=== PATIENT | female | born 1985 | race Caucasian/White ===

== ENCOUNTER 2018-01-16 19:58 | Observation (INO) | payer MEDICAID ==
[~2018-01-16] VITALS: Ht 170.2 cm; Wt 101.8 kg
[~2018-01-16 19:58] MED LIST: ACHD5005 PO; DCS100C PO; HYDR-3583 PO; IBP800T PO; LVT.025T PO; LVT.05T PO; METR500T PO; NAPR550T PO; PREN1TAB39 PO; PRM25T PO; SULF1TAB38 PO
--- OUTSIDE RECORDS SUMMARY | 2018-01-16 20:04 | XMS REPORT ---
Author Author BOLIVAR VYAS Organization [facility] Address [address] [place] [address] Care Team Providers Care Business Quality Assurance Analyst Name Role Phone BOLIVAR VYAS Unavailable PROBLEMS Type Condition ICD9-CM Code SMO20-AP Code Onset Dates Condition Status SNOMED Code Problem Painful menstrual periods N94.6 Active 238559143 Problem Acquired hypothyroidism E03.9 Active 860132231 ALLERGIES No Information ENCOUNTERS Encounter Location Date Diagnosis [address] [address] Jul, Well woman exam Z01.419 and Cervical cancer screening Z12.[address] [address] Jul, Acquired hypothyroidism E03.9 ; Myalgia M79.1 and Painful menstrual periods N94.6 [facility] [place] [address] [address] Jun, Chronic seasonal allergic rhinitis due to other allergen J30.[address] [address] Mar, Acquired hypothyroidism E03.9 [facility] [address] [address] 14 Jan, 2017 Sore throat J02.9 and Strep throat J02.0 [facility] [address] [address] 08 Jan, 2017 Scabies B86 and Sore throat J02.9 [place] [address] [address] Dec, Acquired hypothyroidism E03.9 [place] [address] [address], [place] [address] Dec, Acquired hypothyroidism E03.9 [facility] [address] [place] [id number] [place] [address] Aug, Acquired hypothyroidism E03.9 [facility] [address] [address] May, [facility] [address] [place] [id number] [place] [address] May, Encounter to establish care Z76.89 ; Alopecia L65.9 ; Fatigue, unspecified type R53.83 ; Left wrist pain M25.532 ; Pain in right knee M25.561 and Pain in left knee M25.562 [facility] [address], [place] [address] Jan, [facility] [address] [place] [id number] [place] [address] Jan, [facility] [address], [place] [address] Apr, [facility] [address] [place] [id number] [address] Apr, [facility] [address], [place] [address] Apr, [facility] [address], [place] [address] Apr, [facility] [address], [place] [address] Dec, [facility] [address] [place] [id number] [address] Dec, [facility] [address] [address] Nov, [facility] [address], [place] [address] Nov, [facility] [address] [id number] [place] [address] Nov, [facility] [place] [facility] [address] [id number] [place] [address] Nov, [facility] [address] [id number] [place] [address] Apr, [facility] [place] [facility] [address] [id number] [place] [address] February, [facility] [address] [id number] [place] [address] Jan, [facility] [place] [facility] [address] [id number] [place] [address] Jan, [facility] [place] [facility] [address] [id number] [place] [address] Jan, [facility] [place] [facility] [address] [id number] [place] [address] Jan, [facility] [address] [id number] [place] [address] Jan, [facility] [place] [facility] [address] [id number] [place] [address] 16 Jan, 2013 [facility] [place] [facility] [address] [id number] [place] [address] 15 Jan, 2013 [facility] [place] [facility] [address] [id number] [place] [address] Jan, [facility] [place] [facility] [address] [id number] [place] [address] Dec, [facility] [place] [facility] [address] [id number] [place] [address] Dec, [facility] [place] [facility] [address] [id number] [place] [address] Dec, [facility] [place] [facility] [address] [id number] [place] [address] 20 Nov, 2012 [facility] [address] [id number] [place] [address] 07 Nov, 2012 [facility] [place] [facility] [address] [id number] [place] [address] 07 Nov, 2012 [facility] [address] [id number] [place] [address] 06 Nov, 2012 [facility] [place] [facility] [address] [id number] [place] [address] 09 Oct, 2012 [facility] [address] [id number] [place] 18 Sep, 2012 [facility] [address] [id number] [place] [address] 18 Sep, 2012 [facility] [address] [id number] [place] [address] 17 Sep, 2012 [facility] [address] [id number] [place] [address] 16 Sep, 2012 [facility] [place] [facility] [address] [id number] [place] [address] 13 Sep, 2012 [facility] [address] [id number] [place] [address]- [address] 12 Sep, 2012 [facility] [place] [facility] [address] [id number] [place] [address] 12 Sep, 2012 [facility] [place] [facility] [address] [id number] [place] [address]- [address] 14 Aug, 2012 [facility] [place] [facility] [address] [id number] [place] [address]- [address] 14 Aug, 2012 [facility] [place] [facility] [address] [id number] [place] [address]- [address] 12 Aug, 2012 [facility] [place] [facility] [address] [id number] [place] [address] Aug, [facility] [place] [facility] [address] [id number] [place] [address] Jul, [facility] [place] [facility] [address] [id number] [place] [address]- [address] Jul, [facility] [place] [facility] [address] [id number] [place] [address] Jul, [facility] [place] [facility] [address] [id number] [place] [address]- [address] 28 Jun, 2012 [facility] [place] [facility] [address] [id number] [place] [address]- [address] 27 Jun, 2012 [facility] [place] [facility] [address] [id number] [place] [address] 16 Jun, 2012 [facility] [place] [facility] [address] [id number] [place] [address] 14 Jun, 2012 [facility] [place] [facility] [address] [id number] [place] [address]- [address] 11 Jun, 2012 [facility] [place] [facility] [address] [id number] [place] [address] February, [facility] [place] [facility] [address] [id number] [place] [address]- [address] February, [facility] [place] [facility] [address] [id number] [place] [address]- [address] February, [facility] [place] [facility] [address] [id number] [place] [address]- [address] Jan, [facility] [place] [facility] [address] [id number] [place] [address]- [address] Jan, [facility] [place] [facility] [address] [id number] [place] [address]- [address] Jan, [facility] [place] [facility] [address] [id number] [place] [address]- [address] Jan, [facility] [place] [facility] [address] [id number] [place] [address]- [address] 03 Jan, 2012 [facility] [place] [facility] [address] [id number] [place] [address]- [address] 19 Dec, 2011 [facility] [place] [facility] [address] [id number] [place] [address]- [address] 12 Dec, 2011 [facility] [place] [facility] [address] [id number] [place] [address]- [address] 10 Dec, 2011 [facility] [place] [facility] [address] [id number] [place] [address]- 75[address] 08 Dec, 2011 [facility] [place] [facility] [address] [id number] [place] [address]- [address] 29 Nov, 2011 [facility] [place] [facility] [address] [id number] [place] [address]- [address] 10 Jul, 2011 [facility] [place] [facility] [address] [id number] [place] [address]- [address] 10 Jul, 2011 [facility] [place] [facility] [address] [id number] [place] [address]- 97[address] 20 Mar, 2011 [facility] [place] [facility] [address] [id number] [place] [address]- [address] 13 Mar, 2011 [facility] [place] [facility] [address] [facility] [id number] [place] [address]- 1766 13 Jan, 2011 [facility] [place] [facility] [address] [id number] [place] [address]- 45[address] 15 Dec, 2010 [facility] [place] [facility] [address] [id number] [place] [address]- 2548 29 Sep, 2010 [facility] [place] [facility] [address] [id number] [place] [address]- [address] Sep, [facility] [place] [facility] [address] [id number] [place] [address] 24 Sep, 2010 [facility] [place] [facility] [address] [id number] [place] [address]- [address] Sep, [facility] [place] [facility] [address] [place] [id number] [address] Sep, [facility] [address] [place] [address] Aug, [facility] [address], [place] [address] Aug, [facility] [address], [place] [address] Jul, [facility] [address] [place] [address] Jul, [facility] [address] [place] [address]- [address] Jul, [facility] [address] [place] [id number] [address] Nov, IMMUNIZATIONS No Known Immunizations SOCIAL HISTORY Never Assessed REASON FOR VISIT Lab (walk-in) PLAN OF CARE VITAL SIGNS MEDICATIONS No Known Medications RESULTS Name Result Date Reference Range TSH 2017-03-18 TSH 2.080 0.450-4.500 PROCEDURES Procedure Date Ordered Result Body Site LAB NOT BILLED BY [facility] March 18, 2017 VENMARY, ROUTINE* March 18, 2017 INSTRUCTIONS MEDICATIONS ADMINISTERED No Known Medications MEDICAL (GENERAL) HISTORY Type Description Date Medical History Hypothryoid Surgical History Bilateral Tubal Ligation Surgical History dilatation and curettage Surgical History section x2 Hospitalization History surgeries and childbirth
--- OUTSIDE RECORDS SUMMARY | 2018-01-16 20:04 | XMS REPORT ---
Author Author BOLIVAR VYAS Organization [employer] Address Unknown Phone Unavailable Care Team Providers Care Wire Bender Hand Name Role Phone BOLIVAR VYAS CP Unavailable Allergies, Adverse Reactions, Alerts Substance Reaction Event Type Penicillin V Potassium Info Not Available Drug Allergy Problems Problem Type Condition Code Onset Dates Condition Status Problem General counseling for prescription of oral contraceptives V25.01 Active Problem Missed 632 Active Problem Screening of Streptococcus B V28.6 Active Problem Other general counseling and advice for contraceptive management V25.09 Active Problem Screening examination for venereal disease V74.5 Active Problem Acquired hypothyroidism E03.9 Active Problem Supervision of other normal V22.1 Active Problem Previous delivery, unspecified as to episode of care or not applicable 654.20 Active Problem Screening for malignant neoplasm of the cervix V76.2 Active Problem Urinary tract infection, site not specified 599.0 Active Assessment Acquired hypothyroidism E03.9 Active Problem examination or test, positive result V72.42 Active Problem Routine gynecological examination V72.31 Active Problem Unspecified breast screening V76.10 Active Medications Medication Code System Code Instructions Start Date End Date Status Dosage Levothyroxine Sodium [facility] [address]-02 25 MCG Orally Once a day May 29, 2016 1 tablet on an empty stomach in the morning Procedures Procedure Coding System Code Date Office Visit, Est Pt., Level 3 CPT-4 12465 Aug 20, 2016 Vital Signs Date/Time: Aug 20, 2016 Cardiac Monitoring Heart Rate 80 bpm Weight 192 lbs Height 67 in BMI 30.07 Index Blood Pressure Diastolic 78 mmHg Blood Pressure Systolic 128 mmHg Results No Known Results Summary Purpose [employer] Submission
--- OUTSIDE RECORDS SUMMARY | 2018-01-16 20:04 | XMS REPORT ---
Author Author BOLIVAR VYAS Organization [facility] Address [address] [place] [address] Care Team Providers Care Slipman Name Role Phone BOLIVAR VYAS Unavailable PROBLEMS Type Condition ICD9-CM Code [id number] Code Onset Dates Condition Status SNOMED Code Problem Painful menstrual periods N94.6 Active 174589178 Problem Acquired hypothyroidism E03.9 Active 508971047 ALLERGIES No Information SOCIAL HISTORY Never Assessed PLAN OF CARE VITAL SIGNS MEDICATIONS Unknown Medications RESULTS Name Result Date Reference Range TSH 2016-12-31 TSH 7.390 0.450-4.500 PROCEDURES Procedure Date Ordered Result Body Site LAB NOT BILLED BY [facility] December 31, 2016 VENIPUNCT, ROUTINE* December 31, 2016 IMMUNIZATIONS No Known Immunizations MEDICAL (GENERAL) HISTORY Type Description Date Medical History Hypothryoid Surgical History Bilateral Tubal Ligation Surgical History dilatation and curettage Surgical History section x2 Hospitalization History surgeries and childbirth
--- OUTSIDE RECORDS SUMMARY | 2018-01-16 20:06 | XMS REPORT | Continuity of Care Document ---
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 TETRA TETRA SCREEN 09/26/2012 27345 UA OB DIP 10/19/2012 02027 ROUTINE VENIPUNCTURE 11/16/2012 74750 US OB - FOLLOW UP 11/16/2012 02390 UA OB DIP 11/16/2012 92045 GLUCOSE SHERWIN 1 HOUR 11/16/2012 39735 CBC 11/16/2012 40070 TSH 11/16/2012 73462 UA OB DIP 11/30/2012 93900 UA W/ CULTURE IF INDICATED 12/12/2012 81578 CULTURE URINE 12/14/2012 06867 UA OB DIP 12/26/2012 68738 CULTURE URINE 01/09/2013 24890 UA OB DIP 01/09/2013 62625 UA OB DIP 01/23/2013 71036 CULTURE GROUP B STREP VAG 01/25/2013 09880 UA W/ CULTURE IF INDICATED 01/31/2013 99151 UA OB DIP 02/08/2013 56707 URINE TEST (IN- HOUSE) 04/10/2013 68720 ROUTINE VENIPUNCTURE 12/06/2013 55442 GC/CHLAM PROBE (STATE) 12/06/2013 43240 TSH 12/06/2013 Results Test Result Range TSH - 12/31/16 10:21 TSH 7.390 uIU/mL 0.450-4.500 TSH - 03/18/17 12:09 TSH 2.080 uIU/mL 0.450-4.500 Pap Lb, rfx HPV ASCU - 08/04/17 10:37 DIAGNOSIS: Comment Specimen adequacy: Comment Clinician provided ICD10: Comment Performed by: Comment . . Note: Comment . Comment PDF Report - 08/04/17 10:37 PDF Report1 LCLS NRG Encounters ACCT No. Visit Date/Time Discharge Status Pt. Type Provider Facility Loc./Unit Complaint [id number] 02/21/2013 08:51:00 02/23/2013 12:25:00 DIS Inpatient [id number] 02/15/2013 12:35:00 02/15/2013 23:59:59 CLS Outpatient [id number] 05/15/2017 01:06:00 05/15/2017 02:39:00 [facility] [id number] 05/15/2017 01:30:46 Document Registration [id number] 05/08/2014 09:28:00 05/08/2014 23:59:59 CLS Outpatient CARLOS POWERS MD [id number] 12/06/2013 10:18:00 12/06/2013 23:59:59 CLS Outpatient JENNI MISHRA APRN [id number] 12/06/2013 10:18:00 12/06/2013 23:59:59 CLS Outpatient JENNI MISHRA APRN [id number] 01/09/2013 14:31:00 01/09/2013 23:59:59 CLS Outpatient [id number] 12/26/2012 15:04:00 12/26/2012 23:59:59 CLS Outpatient [id number] 12/12/2012 14:08:00 12/12/2012 23:59:59 CLS Outpatient [id number] 11/30/2012 16:00:00 11/30/2012 23:59:59 CLS Outpatient [id number] 11/16/2012 12:47:00 11/16/2012 23:59:59 CLS Outpatient KALPESH STONE DO Sebastien [id number] 10/19/2012 13:56:00 10/19/2012 23:59:59 CLS Outpatient [id number] 09/21/2012 10:12:00 09/21/2012 23:59:59 CLS Outpatient STONE KALPESH Sebastien [id number] 08/22/2012 14:08:00 08/22/2012 23:59:59 CLS Outpatient KALPESH STONE DO Sebastien [id number] 04/11/2013 15:13:00 Document Registration [id number] 02/08/2013 10:43:00 Document Registration [id number] 01/23/2013 14:57:00 Document Registration [id number] 01/09/2013 14:31:00 Document Registration [id number] 03/19/2017 08:06:00 Document Registration [id number] 08/06/2017 19:07:00 Document Registration [id number] 08/04/2017 09:20:00 08/04/2017 23:59:59 CLS Outpatient BOLIVAR VYAS APRN [facility] [id number] 08/04/2017 09:20:00 Document Registration [id number] 01/01/2017 09:12:00 Document Registration
[2018-01-16] MEDS ORDERED: LACTATED RINGERS 1,000 ML IV ONE (20:11)
[2018-01-16] MEDS ORDERED: ONDANSETRON 4 MG/2 ML (SDV) Z0FRAN IVP ONE ×2 (20:15→21:00)
[2018-01-16 20:22] LABS: BILIRUBIN,URINE NEGATIVE (NEGATIVE); CLARITY,URINE VERY CLOUDY; COLOR,URINE YELLOW; GLUCOSE, URINE (UA) NEGATIVE (NEGATIVE); KETONES,URINE NEGATIVE (NEGATIVE); LEUKOCYTE ESTERASE ,URINE 3+ (NEGATIVE); NITRITE,URINE NEGATIVE (NEGATIVE); PH,URINE 7 (5-9); PROTEIN,URINE 2+ (NEGATIVE); UROBILINOGEN,URINE NORMAL (NORMAL)
[2018-01-16 20:37] LABS: BACTERIA,URINE MODERATE /HPF; RBC,URINE >100 /HPF
[2018-01-16 20:38] LABS: AMORPHOUS SEDIMENT,UR FEW AMOR URATES /LPF
[2018-01-16 20:50] LABS: BASOPHILS % (AUTO) 0 % (0-10); EOSINOPHILS # (AUTO) 0.3 10^3/uL (0.0-0.3); EOSINOPHILS % (AUTO) 2 % (0-10); HEMATOCRIT 40 % (35-52); HEMOGLOBIN 13.4 G/DL (11.5-16.0); LYMPHOCYTES # (AUTO) 1.4 X 10^3 (1.0-4.0); LYMPHOCYTES % (AUTO) 11 % (12-44); MEAN CORPUSCULAR HEMOGLOBIN 31 PG (25-34); MEAN CORPUSCULAR HGB CONC 34 G/DL (32-36); MEAN CORPUSCULAR VOLUME 90 FL (80-99); MEAN PLATELET VOLUME 10.4 FL (7.4-10.4); MONOCYTES # (AUTO) 0.7 X 10^3 (0.0-1.0); MONOCYTES % (AUTO) 6 % (0-12); NEUTROPHILS % (AUTO) 81 % (42-75); PLATELET COUNT 281 10^3/uL (130-400); RED BLOOD COUNT 4.39 10^6/uL (4.35-5.85); RED CELL DISTRIBUTION WIDTH 12.9 % (10.0-14.5); WHITE BLOOD COUNT 12.4 10^3/uL (4.3-11.0)
[2018-01-16] MEDS ORDERED: KETOROLAC 30 MG/ML VIAL IVP ONE (21:00)
[2018-01-16] MEDS ORDERED: PANTOPRAZOLE 40 MG/10 ML (PROTONIX) VIAL IV ONE (21:00)
[2018-01-16 21:09] LABS: ALANINE AMINOTRANSFERASE 36 U/L (0-55); ALBUMIN 4.5 GM/DL (3.2-4.5); ALKALINE PHOSPHATASE 81 U/L (40-136); AMYLASE 84 U/L (25-125); BILIRUBIN,TOTAL 0.4 MG/DL (0.1-1.0); BUN/CREATININE RATIO 17; CALCIUM 9.6 MG/DL (8.5-10.1); CARBON DIOXIDE 25 MMOL/L (21-32); CHLORIDE 108 MMOL/L (98-107); CREATININE SERUM 0.88 MG/DL (0.60-1.30); GFR ESTIMATED > 60; GLUCOSE 83 MG/DL (70-105); LIPASE 45 U/L (8-78); POTASSIUM 3.9 MMOL/L (3.6-5.0); SODIUM 141 MMOL/L (135-145); TOTAL PROTEIN 7.8 GM/DL (6.4-8.2)
--- NOTE | 2018-01-16 21:49 | Diagnostic Imaging Report ---
PROCEDURE: CT abdomen and pelvis without contrast. TECHNIQUE: Multiple contiguous axial images were obtained through the abdomen and pelvis without the use of intravenous contrast. INDICATION: Abdominal pain with nausea and vomiting. COMPARISON: None available. FINDINGS: Evaluation of the abdominal viscera is mildly limited without contrast. Lower chest: The lung bases are clear. No pericardial or pleural effusion. Peritoneum: No free intraperitoneal air or fluid. Liver and biliary system: Unenhanced liver is normal. The gallbladder is normal. No biliary duct dilation. Spleen and Pancreas: Spleen is normal. Unenhanced pancreas is grossly normal. Adrenals: Normal. tract: No renal or ureteral calculi. No obstructive uropathy. Uterus and ovaries are normal in appearance. No adnexal mass. GI tract: Stomach is decompressed. No bowel obstruction. No pericolonic inflammatory changes. Normal appendix. Vasculature and Lymph nodes: Normal caliber aorta. No abdominal or pelvic lymphadenopathy. Musculoskeletal: No concerning osseous lesion. IMPRESSION: 1. No acute inflammatory or obstructive process in the abdomen or pelvis. 2. No urinary tract calculi. Dictated by: Dictated on workstation # [id number]
--- NOTE | 2018-01-16 22:00 | Diagnostic Imaging Report ---
INDICATION: Abdominal pain with nausea and vomiting. COMPARISON: CT abdomen and pelvis performed concurrently. FINDINGS: Nonobstructive bowel gas pattern. No free intraperitoneal air. No mineralized urinary tract calculi. Scattered pelvic phleboliths. Lung bases are clear. Normal regional skeleton. IMPRESSION: No acute abnormality in the abdomen by radiography. Dictated by: Dictated on workstation # [id number]
[2018-01-16] MEDS ORDERED: fentaNYL INJECTION 100 MCG/2 ML AMP IVP ONE (23:15)
[2018-01-16] MEDS ORDERED: cefTRIAXone INJECTION 1,000 MG in NS (IVPB) 100 ML IV ONE (23:30)
--- OUTSIDE RECORDS SUMMARY | 2018-01-16 23:52 | XMS REPORT | Continuity of Care Document ---
Author Author [facility] Organization [facility] Address Unknown Phone Unavailable Allergies Active Description [...] ACUMINATUM 04/10/2009 078.11 CONDYLOMA ACUMINATUM 04/10/2009 TAD NATUROPATHIC ONCOLOGY PROVIDER, JENNI A 078.11 CONDYLOMA ACUMINATUM 04/10/2009 TADJENNI [...] 08/27/2010 V22.0 , Normal First 08/27/2010 TAD RHYS LAURENIDI A V22.0 , Normal First 08/27/2010 TAD ORNELASNRHYSJENNI A V22.0 , Normal First 08/27/2010 GIO [...] Scabies 09/17/2010 V74.5 Std Screen 09/17/2010 TAD NATUROPATHIC ONCOLOGY PROVIDER, JENNI A 133.0 Scabies 09/17/2010 TAD NATUROPATHIC ONCOLOGY PROVIDER, JENNI A V74.5 Std Screen 09/17/2010 TAD NATUROPATHIC ONCOLOGY PROVIDER, JENNI A 133.0 Scabies 09/17/2010 TAD NATUROPATHIC ONCOLOGY PROVIDER, JENNI A V74.5 Std Screen 09/17/2010 GIO ELLIOTT, CARLOS N 133.0 Scabies 09/17/2010 GIO ELLIOTT, CARLOS N V74.5 Std Screen 10/08/2010 KALPESH STONE DO 054.10 HERPES SIMPLEX GENITAL 10/08/2010 KALPESH STONE DO 647.20 Compl Of - Std Unspecified 10/08/2010 KALPESH STONE DO 648.10 Compl Of - Thyroid Dysfunction 10/08/2010 KALPESH STONE DO K 054.10 HERPES SIMPLEX GENITAL 10/08/2010 KAPLESH STONE DO K 647.20 Compl Of - [...] 33-34 Completed Weeks Of Gestation 03/02/2011 CARLOS POWERS MD 765.27 33-34 Completed Weeks Of Gestation 03/11/2011 KALPESH STONE DO 616.10 Vaginitis Vulvovaginitis Unspecified 03/11/2011 KALEPSH STONE DO 616.10 Vaginitis Vulvovaginitis Unspecified 03/11/2011 [...] GBS SCREENING 12/06/2013 JENNI MISHRA APRN V72.31 RESIDENTIAL SALES CONSULTANT EXAM, ROUTINE 12/06/2013 JENNI MISHRA APRN V74.5 STD SCREEN 12/06/2013 TADJENNI LOPEZ APRN A V76.10 BREAST CANCER SCREENING 12/06/2013 TADJENNI LOPEZ APRN V72.31 RESIDENTIAL SALES CONSULTANT EXAM, ROUTINE 12/06/2013 JENNI MISHRA APRN V74.5 STD SCREEN 12/06/2013 JENNI MISHRA APRN V76.10 BREAST CANCER SCREENING 12/06/2013 CARLOS POWERS MD V72.31 RESIDENTIAL SALES CONSULTANT EXAM, ROUTINE 12/06/2013 CARLOS POWERS MD V74.5 [...] 05/15/2017 Vicky Aguilar Y92.[address] [facility] Procedures Code Description [place] [address] ROUTINE VENIPUNCTURE 08/22/2012 68198 UA OB DIP 08/22/2012 61750 TSH 08/23/2012 94544 ROUTINE VENIPUNCTURE 09/21/2012 59079 US OB ULTRASOUND 09/21/2012 33917 UA OB DIP 09/21/2012 TETRA TETRA SCREEN 09/26/2012 42084 UA OB DIP 10/19/2012 81160 ROUTINE VENIPUNCTURE 11/16/2012 82355 US OB - FOLLOW UP 11/16/2012 37434 UA OB DIP 11/16/2012 39914 GLUCOSE SHERWIN 1 HOUR 11/16/2012 44844 CBC 11/16/2012 28133 TSH 11/16/2012 92837 UA OB DIP 11/30/2012 73807 UA W/ CULTURE IF INDICATED 12/12/2012 07877 CULTURE URINE 12/14/2012 39891 UA OB DIP 12/26/2012 46911 CULTURE URINE 01/09/2013 35471 UA OB DIP 01/09/2013 76641 UA OB DIP 01/23/2013 16515 CULTURE GROUP B STREP VAG 01/25/2013 01792 UA W/ CULTURE IF INDICATED 01/31/2013 66083 UA OB DIP 02/08/2013 00168 URINE TEST (IN- HOUSE) 04/10/2013 70936 ROUTINE VENIPUNCTURE 12/06/2013 94644 GC/CHLAM PROBE (STATE) 12/06/2013 28479 TSH 12/06/2013 Results Test Result Range TSH [...] Status Pt. Type Provider Facility Loc./Unit Complaint [id number] 02/21/2013 08:51:00 02/23/2013 12:25:00 DIS Inpatient [id number] 02/15/2013 12:35:00 02/15/2013 23:59:59 CLS Outpatient [id number] 05/15/2017 01:06:00 05/15/2017 02:39:00 [facility] [id number] 05/15/2017 01:30:46 Document Registration [id number] 05/08/2014 09:28:00 05/08/2014 23:59:59 CLS Outpatient CARLOS POWERS MD [id number] 12/06/2013 10:18:00 12/06/2013 23:59:59 CLS Outpatient JENNI MISHRA APRN [id number] 12/06/2013 10:18:00 12/06/2013 23:59:59 CLS Outpatient JENNI MISHRA APRN [id number] 01/09/2013 14:31:00 01/09/2013 23:59:59 CLS Outpatient [id number] 12/26/2012 15:04:00 12/26/2012 23:59:59 CLS Outpatient [id number] 12/12/2012 14:08:00 12/12/2012 23:59:59 CLS Outpatient [id number] 11/30/2012 16:00:00 11/30/2012 23:59:59 CLS Outpatient [id number] 11/16/2012 12:47:00 11/16/2012 23:59:59 CLS Outpatient KALPESH STONE DO Sebastien [id number] 10/19/2012 13:56:00 10/19/2012 23:59:59 CLS Outpatient [id number] 09/21/2012 10:12:00 09/21/2012 23:59:59 CLS Outpatient STONE KALPESH Sebastien [id number] 08/22/2012 14:08:00 08/22/2012 23:59:59 CLS Outpatient KALPESH STONE DO Sebastien [id number] 04/11/2013 15:13:00 Document Registration [id number] 02/08/2013 10:43:00 Document Registration [id number] 01/23/2013 14:57:00 Document Registration [id number] 01/09/2013 14:31:00 Document Registration [id number] 03/19/2017 08:06:00 Document Registration [id number] 08/06/2017 19:07:00 Document Registration [id number] 08/04/2017 09:20:00 08/04/2017 23:59:59 CLS Outpatient BOLIVAR VYAS APRN [facility] [id number] 08/04/2017 09:20:00 Document Registration [id number] 01/01/2017 09:12:00 Document Registration
[2018-01-17 00:05] VITALS: BP 136/74
[2018-01-17] MEDS ORDERED: LACTATED RINGERS 1,000 ML IV ONE ×2 (00:25→14:14)
[2018-01-17] MEDS ORDERED: ONDANSETRON 4 MG/2 ML (SDV) Z0FRAN IV PRN (02:45)
[2018-01-17] MEDS ORDERED: KETOROLAC 30 MG/ML VIAL IVP PRN (02:45)
[2018-01-17] MEDS ORDERED: fentaNYL INJECTION 100 MCG/2 ML AMP IV PRN (02:45)
[2018-01-17] MEDS: LACTATED RINGERS 1,000 ML IV SCH ×3 (03:27→14:20)
[2018-01-17 04:00] VITALS: BP 123/72
[2018-01-17 06:41] LABS: BASOPHILS % (AUTO) 0 % (0-10); EOSINOPHILS # (AUTO) 0.4 10^3/uL (0.0-0.3); EOSINOPHILS % (AUTO) 6 % (0-10); HEMATOCRIT 33 % (35-52); HEMOGLOBIN 11.2 G/DL (11.5-16.0); LYMPHOCYTES % (AUTO) 27 % (12-44); MEAN CORPUSCULAR HEMOGLOBIN 31 PG (25-34); MEAN CORPUSCULAR HGB CONC 34 G/DL (32-36); MEAN CORPUSCULAR VOLUME 91 FL (80-99); MEAN PLATELET VOLUME 10.7 FL (7.4-10.4); MONOCYTES # (AUTO) 0.5 X 10^3 (0.0-1.0); MONOCYTES % (AUTO) 6 % (0-12); NEUTROPHILS # (AUTO) 4.5 X 10^3 (1.8-7.8); NEUTROPHILS % (AUTO) 61 % (42-75); PLATELET COUNT 232 10^3/uL (130-400); RED BLOOD COUNT 3.65 10^6/uL (4.35-5.85); RED CELL DISTRIBUTION WIDTH 12.8 % (10.0-14.5); WHITE BLOOD COUNT 7.4 10^3/uL (4.3-11.0)
[2018-01-17 06:56] LABS: ALANINE AMINOTRANSFERASE 24 U/L (0-55); ALBUMIN 3.3 GM/DL (3.2-4.5); ALKALINE PHOSPHATASE 62 U/L (40-136); BILIRUBIN,TOTAL 0.5 MG/DL (0.1-1.0); BUN/CREATININE RATIO 18; CALCIUM 8.5 MG/DL (8.5-10.1); CARBON DIOXIDE 23 MMOL/L (21-32); CHLORIDE 109 MMOL/L (98-107); CREATININE SERUM 0.77 MG/DL (0.60-1.30); GFR ESTIMATED > 60; GLUCOSE 89 MG/DL (70-105); POTASSIUM 3.9 MMOL/L (3.6-5.0); SODIUM 140 MMOL/L (135-145); TOTAL PROTEIN 5.3 GM/DL (6.4-8.2)
--- NOTE | 2018-01-17 07:07 | Diagnostic Imaging Report ---
INDICATION: Abdominal pain, nausea and vomiting. TECHNIQUE: Multiple real-time bruce scale sonographic images of the abdomen. CORRELATION STUDY: None FINDINGS: LIVER: Normal echotexture within the visualized portions of the liver. Liver length 18 cm. GALLBLADDER: No shadowing gallstones or pericholecystic fluid. COMMON BILE DUCT: Nondilated at 4 mm. PANCREAS: Limited in visualization. The visualized portions appearing unremarkable. SPLEEN: Unremarkable. ABDOMINAL AORTA: Unremarkable. Distal area obscured. INFERIOR VENA CAVA: Limited in visualization. RIGHT KIDNEY: 11.5 cm. Thinning of the cortex. No hydronephrosis. LEFT KIDNEY: 12.0 cm. Less prominent thinning of the renal cortex. OTHER: None. IMPRESSION: 1. Negative for acute abnormality of the abdomen. 2. Borderline hepatomegaly. 3. Overall renal size within normal limits. There does, however, appear to be some early thinning of the renal parenchyma, right greater than left. No hydronephrosis. A preliminary report was provided by [facility]. Dictated by: Dictated on workstation # [id number]
[2018-01-17] MEDS ORDERED: CATHETER FLUSH 10 ML SYR IV PRN (07:30)
--- NOTE | 2018-01-17 08:07 | ED Abdominal Pain ---
General Chief Complaint: Abdominal/GI Problems Stated Complaint: RUQ PAIN; UTI Nursing Triage Note: PT TO ED 3 W/ C/O EPIGASTRIC ET ABD PAIN ONSET X3 DAY W/ N/V/D. PT REPORTS SHE FELT IF SHE WAS GOING TO PASS OUT TONGUER. PT PRESENTLY HYPERVENTILATING. PT INSTRUCTED TO SLOW HER BREATHING DOWN TO PREVENT WORSENING OF SYMPTOMS R/T HYPERVENTILATION. PT VOICED UNDERSTANDING. Sepsis Screen: No Definite Risk Source of Information: Patient Exam Limitations: No Limitations History of Present Illness Date Seen by Provider: Jan 16, 2018 Time Seen by Provider: 20:12 Initial Comments PT ARRIVES VIA POV FROM HOME C/O SEVERE EPIGASTRIC AND RUQ PAIN X 3 DAYS PAIN IS GETTING WORSE AND TODAY THE PAIN WAS SO BAD SHE THOUGHT SHE WAS GOING TO PASS OUT C/O NAUSEA/VOMITING NO DIARRHEA NO URINARY SYMPTOMS NO FEVER SYMPTOMS WORSE WITH FOOD--LAST ATE AROUND 1700 NO HISTORY OF SIMILAR LMP --NOW. Allergies and Home Medications Allergies Coded Allergies: Penicillins (Unverified Allergy, Mild, RASH, 12/07/12) Home Medications Levothyroxine Sodium 50 Mcg Tablet, 150 MG PO DAILY, (Reported) Patient Home Medication List Home Medication List Reviewed: Yes Review of Systems Constitutional: no symptoms reported Respiratory: No Symptoms Reported Cardiovascular: No Symptoms Reported Gastrointestinal: See HPI, Abdominal Pain, Nausea, Vomiting Genitourinary: No Symptoms Reported Musculoskeletal: no symptoms reported Skin: no symptoms reported Psychiatric/Neurological: No Symptoms Reported Endocrine: No Symptoms Reported Hematologic/Lymphatic: No Symptoms Reported Past Aldizbg-Ynoini-Voxtwg Hx Patient Social History Alcohol Use: Denies Use Recreational Drug Use: No Smoking Status: Never a Smoker 2nd Hand Smoke Exposure: No Recent Foreign Travel: No Contact w/Someone Who Travel: No Recent Infectious Disease Expo: No Recent Hopitalizations: No Physical Abuse: No Sexual Abuse: No Mistreated: No Fear: No Immunizations Up To Date Tetanus Booster (TDap): More than 5yrs PED Vaccines UTD: Yes Seasonal Allergies Seasonal Allergies: No Past Medical History Surgeries: Yes ( X 2; D&C) Section Respiratory: No Cardiac: No Neurological: No : No Hx : 3 Hx Para: 2 Hx Total # of Abortions (Sp): 1 Reproductive Disorders: Yes Female Reproductive Disorders: Denies Sexually Transmitted Disease: Yes (herpes no outbreak for several years) HIV/AIDS: No Genitourinary: No Gastrointestinal: No Musculoskeletal: No Endocrine: Yes (hypothyroid) Hypothyroidsim HEENT: No Cancer: No Psychosocial: No Nursing Suicide Risk Score: 0 Integumentary: No Blood Disorders: No Family Medical History FH: atrial fibrillation 19 FATHER Thyroid disease 19 MOTHER Physical Exam Vital Signs Vital Signs - First Documented 01/16/18 20:06 Temp 97.1 Pulse 76 Resp 18 B/P (MAP) 133/96 (108) Pulse Ox 100 O2 Delivery Room Air Capillary Refill : Less Than 3 Seconds General Appearance: WD/WN, no apparent distress (PT IS CALM NOW, BUT WAS NOTED TO BE HYPERVENTILATING WHEN SHE ARRIVED IN ER) Respiratory: normal breath sounds, no respiratory distress, no accessory muscle use Cardiovascular: regular rate, rhythm, no murmur Gastrointestinal: normal bowel sounds, soft, no organomegaly, no pulsatile mass , No distended, guarding, tenderness (EPIGASTRIC AND RUQ), No hernia, No mass Extremities: normal inspection Back: normal inspection, no CVA tenderness Neurologic/Psychiatric: butadiene converter helper II-XII nml as tested, no motor/sensory deficits, alert, oriented x 3 Skin: normal color, warm/dry, No rash Progress/Results/Core Measures Lab Results Laboratory Tests Test 01/16/18 20:16 01/16/18 20:43 Range/Units Urine Color YELLOW Urine Clarity VERY CLOUDY H Urine pH 7 5-9 Urine Specific [place] 1.010 L 1.016-1.022 Urine Protein 2+ H NEGATIVE Urine Glucose (UA) NEGATIVE NEGATIVE Urine Ketones NEGATIVE NEGATIVE Urine Nitrite NEGATIVE NEGATIVE Urine Bilirubin NEGATIVE NEGATIVE Urine Urobilinogen NORMAL NORMAL MG/DL Urine Leukocyte Esterase 3+ H NEGATIVE Urine RBC (Auto) 5+ H NEGATIVE Urine RBC >100 H /HPF Urine WBC 10-25 H /HPF Urine Squamous Epithelial Cells 10-25 H /HPF Urine Renal Epithelial Cells NONE /HPF Urine Crystals PRESENT H /LPF Urine Amorphous Sediment FEW MARTA URATES H /LPF Urine Bacteria MODERATE H /HPF Urine Casts NONE /LPF Urine Mucus SMALL H /LPF Urine Culture Indicated YES White Blood Count 12.4 H 4.3-11.0 10^3/uL Red Blood Count 4.39 4.35-5.85 10^6/uL Hemoglobin 13.4 11.5-16.0 G/DL Hematocrit 40 35-52 % Mean Corpuscular Volume 90 80-99 FL Mean Corpuscular Hemoglobin 31 25-34 PG Mean Corpuscular Hemoglobin Concent 34 32-36 G/DL Red Cell Distribution Width 12.9 10.0-14.5 % Platelet Count 281 130-400 10^3/uL Mean Platelet Volume 10.4 7.4-10.4 FL Neutrophils (%) (Auto) 81 H 42-75 % Lymphocytes (%) (Auto) 11 L 12-44 % Monocytes (%) (Auto) 6 0-12 % Eosinophils (%) (Auto) 2 0-10 % Basophils (%) (Auto) 0 0-10 % Neutrophils # (Auto) 10.0 H 1.8-7.8 X 10^3 Lymphocytes # (Auto) 1.4 1.0-4.0 X 10^3 Monocytes # (Auto) 0.7 0.0-1.0 X 10^3 Eosinophils # (Auto) 0.3 0.0-0.3 10^3/uL Basophils # (Auto) 0.0 0.0-0.1 10^3/uL Sodium Level 141 135-145 MMOL/L Potassium Level 3.9 3.6-5.0 MMOL/L Chloride Level 108 H 98-107 MMOL/L Carbon Dioxide Level 25 21-32 MMOL/L Anion Gap 8 5-14 MMOL/L Blood Urea Nitrogen 15 7-18 MG/DL Creatinine 0.88 0.60-1.30 MG/DL Estimat Glomerular Filtration Rate > 60 BUN/Creatinine Ratio 17 Glucose Level 83 70-105 MG/DL Calcium Level 9.6 8.5-10.1 MG/DL Total Bilirubin 0.4 0.1-1.0 MG/DL Aspartate Amino Transf (AST/SGOT) 24 5-34 U/L Alanine Aminotransferase (ALT/SGPT) 36 0-55 U/L Alkaline Phosphatase 81 40-136 U/L Total Protein 7.8 6.4-8.2 GM/DL Albumin 4.5 3.2-4.5 GM/DL Amylase Level 84 25-125 U/L Lipase 45 8-78 U/L My Orders Orders - ARTI,FAUSTINA K DO Saline Lock/Iv-Start (01/16/18 20:11) Urine Bedside (01/16/18 20:11) Amylase (01/16/18 20:11) Cbc With Automated Diff (01/16/18 20:11) Comprehensive Metabolic Panel (01/16/18 20:11) Lipase (01/16/18 20:11) Ua Culture If Indicated (01/16/18 20:11) Ondansetron Injection (Zofran Injectio (01/16/18 20:15) Saline Lock/Iv-Start (01/16/18 20:11) Lactated Ringers (Lr 1000 Ml Iv Solution (01/16/18 20:11) Urine Culture (01/16/18 20:16) Abdomen/Kub 1view (01/16/18 20:59) Ketorolac Injection (Toradol Injection) (01/16/18 21:00) Ondansetron Injection (Zofran Injectio (01/16/18 21:00) Pantoprazole Injection (Protonix Injecti (01/16/18 21:00) Ct Abdomen/Pelvis Wo (01/16/18 20:59) Us Abdomen Complete 32970 (01/16/18 21:49) Fentanyl Injection (Sublimaze Injection (01/16/18 23:15) Medications Given in ED Current Medications Medications Dose Ordered Sig/Dale Route Start Time Stop Time Status Last Admin Dose Admin Ketorolac Tromethamine 30 mg ONCE ONCE IVP 01/16/18 21:00 01/16/18 21:01 DC 01/16/18 21:29 30 MG Lactated Ringer's 1,000 ml @ 0 mls/hr Q0M ONCE IV 01/16/18 20:11 01/16/18 20:14 DC 01/16/18 20:43 1,000 MLS/HR Ondansetron HCl 4 mg ONCE ONCE IVP 01/16/18 20:15 01/16/18 20:16 DC 01/16/18 20:43 4 MG Ondansetron HCl 4 mg ONCE ONCE IVP 01/16/18 21:00 01/16/18 21:01 DC 01/16/18 21:29 4 MG Pantoprazole 40 mg ONCE ONCE IV 01/16/18 21:00 01/16/18 21:01 DC 01/16/18 21:29 40 MG Vital Signs/I&O 01/16/18 20:06 Temp 97.1 Pulse 76 Resp 18 B/P (MAP) 133/96 (108) Pulse Ox 100 O2 Delivery Room Air Blood Pressure Mean: 89 Urine -Bedside: Negative Progress Note : Progress Note NO RELIEF WITH TORADOL. STILL WITH SOME PAIN AFTER FENTANYL Comments CT ABDOMEN/PELVIS--NO ACUTE PROCESS, NO GALL STONES, NO KIDNEY STONES. PER RADIOLOGIST REPORT @ 1947 ABDOMINAL ULTRASOUND--NO ACUTE PROCESS, NO GALL STONES, PER TECH REPORT @ 3219 AND PER [facility] VIA FAX AT 7461 Reviewed: Reviewed by Me Departure Communication (Admissions) 2140--SPOKE WITH DR. JIMENEZ, ALL STUDIES PENDING. HE WILL ADMIT PT IF PAIN IS NOT CONTROLLED. 2309--SPOKE WITH DR. JIMENEZ. ACCEPTS PT FOR ADMIT. WILL OBTAIN HIDA SCAN IN AM. RECOIL SPRING WINDER INFORMED OF NEED FOR HIDA SCAN Impression Primary Impression: RUQ abdominal pain Additional Impression: UTI (urinary tract infection) Disposition: ADMITTED INPATIENT Condition: Stable Admissions Decision to Admit Reason: Admit from ER (General) Decision to Admit/Date: Jan 16, 2018 Time/Decision to Admit Time: 23:15 Departure-Patient Inst. Referrals: NO,LOCAL PHYSICIAN (PCP) Primary Care Physician FAUSTINA CHI DO Jan 17, 2018 08:07
[2018-01-17 08:55] VITALS: BP 132/79
[2018-01-17] MEDS ORDERED: PANTOPRAZOLE 40 MG/10 ML (PROTONIX) VIAL IV SCH (09:00)
[2018-01-17] MEDS ORDERED: PHEN37.53 PO (10:30)
[2018-01-17] MEDS ORDERED: LEVO50TA6 PO (10:30)
[2018-01-17] MEDS ORDERED: IBUP-1780 PO (10:32)
--- NOTE | 2018-01-17 10:34 | Diagnostic Imaging Report ---
INDICATION: Right upper quadrant pain. TECHNIQUE: The patient received an intravenous dose of 5.1 mCi of technetium 99m Choletec and sequential imaging over the abdomen was performed. At the 60 minute interval, the patient ingested Ensure for gallbladder stimulation with an additional 60 minutes of imaging. FINDINGS: There was prompt homogenous distribution of radiopharmacy throughout the liver parenchyma. Activity quickly aggregates in the gallbladder and central intrahepatic biliary ducts, each identified within 15 minutes. Activity spills freely into the proximal bowel and, with gallbladder stimulation via Ensure ingestion, there was good gallbladder contractility with an ejection fraction of 78% which is well within normal limits. There is no evidence for cystic or common duct obstruction. IMPRESSION: Normal gallbladder filling and ejection fraction. Normal HIDA scan. Dictated by: Dictated on workstation # [id number]
--- NOTE | 2018-01-17 11:49 | History & Physical-Surgical ---
History of Present Illness History of Present Illness Reason for visit/HPI HPI per ED: PT TO ED 3 W/ C/O EPIGASTRIC ET ABD PAIN ONSET X3 DAY W/ N/V/D. 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 PT PRESENTLY HYPERVENTILATING. PT INSTRUCTED TO SLOW HER BREATHING DOWN TO PREVENT WORSENING OF SYMPTOMS R/T HYPERVENTILATION. PT VOICED UNDERSTANDING. PT ARRIVES VIA POV FROM HOME C/O SEVERE EPIGASTRIC AND RUQ PAIN X 3 DAYS PAIN IS GETTING WORSE AND TODAY THE PAIN WAS SO BAD SHE THOUGHT SHE WAS GOING TO PASS OUT C/O NAUSEA/VOMITING NO DIARRHEA NO URINARY SYMPTOMS NO FEVER SYMPTOMS WORSE WITH FOOD--LAST ATE AROUND 1700 NO HISTORY OF SIMILAR LMP --NOW. When I spoke to pt this am, she states she has had about a month of this pain. She points to right below xyphoid and said it has occasionally gone to right side. Denies any radiation of the pain. When she came to the ER last night it was a 9 out of 10, now it is a 4. She stated it had been going on for 3-4 days, constant pain not letting up and she vomited every morning. Pt states it occurs mostly with "pineapple and spicy foods". She denies it occuring with greasy foods. Denies any sick contacts, no travel and no new foods. No one at home has any similar symptoms. She has tried tums and that does not help. Date of Admission Jan 16, 2018 at 23:10 Time Seen by Provider: 11:31 I consulted on this patient on 01/17/18 11:44 Attending Physician León Banuelos DO Admitting Physician No,Local Physician Consult Allergies and Home Medications Allergies Coded Allergies: Penicillins (Unverified Allergy, Mild, RASH, 12/07/12) Home Medications Ibuprofen 800 Mg Tablet, 800 MG PO TID PRN for PAIN-MILD, (Reported) Levothyroxine Sodium 50 Mcg Tablet, 50 MCG PO DAILY, (Reported) Phentermine HCl 37.5 Mg Tablet, 37.5 MG PO DAILY PRN for APPETITE, (Reported) Patient Home Medication List Home Medication List Reviewed: Yes Past Gtnqrdc-Qdaska-Aruphx Hx Patient Social History Alcohol Use: Denies Use Recreational Drug Use: No Smoking Status: Never a Smoker 2nd Hand Smoke Exposure: No Recent Foreign Travel: No Contact w/Someone Who Travel: No Recent Infectious Disease Expo: No Recent Hopitalizations: No Physical Abuse Screen: No Sexual Abuse: No Immunizations Up To Date Tetanus Booster (TDap): More than 5yrs PED Vaccines UTD: Yes Seasonal Allergies Seasonal Allergies: No Surgeries History of Surgeries: Yes ( X 2; D&C) Surgeries: Section, Tubal Ligation Respiratory History of Respiratory Disorde: No Cardiovascular History of Cardiac Disorders: No Neurological History of Neurological Disord: No Reproductive System : No Hx : 3 Hx Para: 2 Hx Total # of Abortions (Spona: 1 Hx Reproductive Disorders: Yes Sexually Transmitted Disease: Yes (herpes no outbreak for several years) HIV/AIDS: No Female Reproductive Disorders: Denies Genitourinary History of Genitourinary Disor: No Gastrointestinal History of Gastrointestinal Di: No Musculoskeletal History of Musculoskeletal Dis: No Endocrine History of Endocrine Disorders: Yes (hypothyroid) Endocrine Disorders: Hypothyroidsim HEENT History of HEENT Disorders: No Cancer History of Cancer: No Psychosocial History of Psychiatric Problem: No Integumentary History of Skin or Integumenta: No Blood Transfusions History of Blood Disorders: No Family Medical History Significant Family History: CAD Under 55 Years Old (Father had a [place]), Hypertension (Father) Family Medial History: FH: atrial fibrillation 19 FATHER Thyroid disease 19 MOTHER Constitutional: chills, diaphoresis, weakness EENTM: No blurred vision, No mouth swelling, No epistaxis, No throat swelling Respiratory: No cough, No dyspnea on exertion Cardiovascular: No chest pain, No edema, No palpitations Gastrointestinal: abdominal pain, No hematemesis, No melena, nausea, other ( denies hematochezia) Genitourinary: dysuria, frequency, No hematuria, No hesitancy : No Musculoskeletal: No back pain, No joint pain, No muscle stiffness Skin: No change in color, No change in hair/nails Psychiatric/Neurological: Denies Anxiety, Denies Depressed, Denies Seizure, Denies Tingling pt denies any abnormal bleeding or bruising, no polydipsia or excessive fluid intake Physical Exam Vital Signs Vital Signs - First Documented 01/16/18 20:06 Temp 97.1 Pulse 76 Resp 18 B/P (MAP) 133/96 (108) Pulse Ox 100 O2 Delivery Room Air Capillary Refill : Less Than 3 Seconds General Appearance: WD/WN, Mild Distress Eyes: Bilateral Eye PERRL, Bilateral Eye EOMI HEENT: Pharynx Normal, No Pale Conjunctivae (L), No Pale Conjunctivae (R), No Scleral Icterus (L), No Scleral Icterus (R) Neck: Full Range of Motion, Normal Inspection, Non Tender, Supple Respiratory: Chest Non Tender, Lungs Clear, Normal Breath Sounds, No Accessory Muscle Use, No Respiratory Distress Cardiovascular: Regular Rate, Rhythm, No Edema, No Murmur, Normal Peripheral Pulses Gastrointestinal: Normal Bowel Sounds, No Organomegaly, Soft, Hernia (small UH) , Tenderness (minimal epigastric tenderness) Rectal: Deferred Back: No CVA Tenderness, No Vertebral Tenderness Extremity: Normal Capillary Refill, Non Tender, No Calf Tenderness Neurologic/Psychiatric: Alert, Oriented x3, No Motor/Sensory Deficits, Normal Mood/Affect, first aid officer II-XII Norm as Tested Skin: Normal Color, Warm/Dry Lymphatic: No Adenopathy (neck, axilla or groin) Data Review Labs Laboratory Tests 01/16/18 20:16: Urine Color YELLOW, Urine Clarity VERY CLOUDYH, Urine pH 7, Urine Specific [place] 1.010L, Urine Protein 2+H, Urine Glucose (UA) NEGATIVE, Urine Ketones NEGATIVE, Urine Nitrite NEGATIVE, Urine Bilirubin NEGATIVE, Urine Urobilinogen NORMAL, Urine Leukocyte Esterase 3+H, Urine RBC (Auto) 5+H, Urine RBC >100H, Urine WBC 10-25H, Urine Squamous Epithelial Cells 10-25H, Urine Renal Epithelial Cells NONE, Urine Crystals PRESENTH, Urine Amorphous Sediment FEW MARTA URATESH, Urine Bacteria MODERATEH, Urine Casts NONE, Urine Mucus SMALLH, Urine Culture Indicated YES 01/16/18 20:43: White Blood Count 12.4H, Red Blood Count 4.39, Hemoglobin 13.4, Hematocrit 40, Mean Corpuscular Volume 90, Mean Corpuscular Hemoglobin 31, Mean Corpuscular Hemoglobin Concent 34, Red Cell Distribution Width 12.9, Platelet Count 281, Mean Platelet Volume 10.4, Neutrophils (%) (Auto) 81H, Lymphocytes (%) (Auto) 11L, Monocytes (%) (Auto) 6, Eosinophils (%) (Auto) 2, Basophils (%) (Auto) 0, Neutrophils # (Auto) 10.0H, Lymphocytes # (Auto) 1.4, Monocytes # (Auto) 0.7, Eosinophils # (Auto) 0.3, Basophils # (Auto) 0.0, Sodium Level 141, Potassium Level 3.9, Chloride Level 108H, Carbon Dioxide Level 25, Anion Gap 8, Blood Urea Nitrogen 15, Creatinine 0.88, Estimat Glomerular Filtration Rate > 60, BUN/ Creatinine Ratio 17, Glucose Level 83, Calcium Level 9.6, Total Bilirubin 0.4, Aspartate Amino Transf (AST/SGOT) 24, Alanine Aminotransferase (ALT/SGPT) 36, Alkaline Phosphatase 81, Total Protein 7.8, Albumin 4.5, Amylase Level 84, Lipase 45 01/17/18 05:59: White Blood Count 7.4, Red Blood Count 3.65L, Hemoglobin 11.2L, Hematocrit 33L, Mean Corpuscular Volume 91, Mean Corpuscular Hemoglobin 31, Mean Corpuscular Hemoglobin Concent 34, Red Cell Distribution Width 12.8, Platelet Count 232, Mean Platelet Volume 10.7H, Neutrophils (%) (Auto) 61, Lymphocytes (%) (Auto) 27 , Monocytes (%) (Auto) 6, Eosinophils (%) (Auto) 6, Basophils (%) (Auto) 0, Neutrophils # (Auto) 4.5, Lymphocytes # (Auto) 2.0, Monocytes # (Auto) 0.5, Eosinophils # (Auto) 0.4H, Basophils # (Auto) 0.0, Sodium Level 140, Potassium Level 3.9, Chloride Level 109H, Carbon Dioxide Level 23, Anion Gap 8, Blood Urea Nitrogen 14, Creatinine 0.77, Estimat Glomerular Filtration Rate > 60, BUN/ Creatinine Ratio 18, Glucose Level 89, Calcium Level 8.5, Total Bilirubin 0.5, Aspartate Amino Transf (AST/SGOT) 17, Alanine Aminotransferase (ALT/SGPT) 24, Alkaline Phosphatase 62, Total Protein 5.3L, Albumin 3.3 Assessment/Plan Assessment/Plan Admission Diagonsis Epigastric Pain Admission Status: Observation Assessment/Plan Epigastric pain r/o Gastritis UTI Plan pt was admitted, npo, IVF, pain control and anti-emetics. She was worked up for cholecystitis; but US and CT showed no stones and no pericholecystic fluid. HIDA this am was basically normal; EF 78%, which is borderline high ( above 80% is high). I think she needs an EGD to rule out Gastritis, ulcers or H. Pylori. I discussed the procedure with the pt; risks and compllications not limited to pain, bleeding, infection and esophageal rupture. All questions answered to her satisfaction and we will do that today. Pt is receiving ABX for UTI. Clinical Quality Measures DVT/VTE Risk/Contraindication: Risk Factor Score Per Nursin RFS Level Per Nursing on Admit: 2=Moderate LEÓN BANUELOS DO Jan 17, 2018 11:49
[2018-01-17 12:00] VITALS: BP 116/77
[2018-01-17] MEDS ORDERED: CATHETER FLUSH 10 ML SYR IV SCH (14:00)
[2018-01-17] MEDS ORDERED: HURRICAINE EXT TUBE (BENZOCAINE) ONE (14:14)
--- NOTE | 2018-01-17 14:39 | Progress Note-Post Operative ---
Post-Operative Progess Note Surgeon (s)/Scientific Programmer (s) Surgeon RANDALL JIMENEZ DO Scientific Programmer: none Pre-Operative Diagnosis Epigastric pain, UTI Post-Operative Diagnosis Gastritis Procedure & Operative Findings Date of Procedure 01/17/18 Procedure Performed/Findings EGD with bx Anesthesia Type IV Sedation by HEALTHCARE ANALYST Estimated Blood Loss Estimated blood loss (mL): scant Specimens/Packing Specimens Removed antral bx RANDALL JIMENEZ DO Jan 17, 2018 14:39
[2018-01-17] MEDS ORDERED: PANT40SU PO (14:40)
[2018-01-17] MEDS ORDERED: LACTATED RINGERS 1,000 ML IV STA (14:40)
[2018-01-17] MEDS ORDERED: CEPH-507 PO (14:43)
--- NOTE | 2018-01-17 14:44 | Endoscopy Discharge Instruct ---
Endo Procedure/Findings Findings 1.: Gastritis Discharge Instructions - Activity: You might feel a little sleepy until tomorrow. This is due to the medicine you received to relax you. Until tomorrow, you should: NOT drive a car, operate machinery or power tools. NOT drink any alcoholic beverages. NOT make any important decisions or sign importortant papers. Do not return to work until tomorrow, unless otherwise instructed. Resume previous activities tomorrow. Diet: Start by taking liquids. If you tolerate liquids, advance to solid food. Notify Physician - If you experience excessive bleeding, unusual abdominal pain, fever, or chest pain, contact your doctor immediately. Follow-Up: - I have received and understand the above instructions and will call my doctor if I have any further questions. Patient Signature Date Nurse Signature Other (Relationship) RANDALL JIMENEZ DO Jan 17, 2018 14:43
[2018-01-17] MEDS ORDERED: HURRICAINE EXT TUBE (BENZOCAINE) XX PRN (14:45)
--- NOTE | 2018-01-17 14:50 | Anesthesia-General Post-Op ---
MAC Patient Condition Mental Status/LOC: Same as Preop Cardiovascular: Satisfactory Nausea/Vomiting: Absent Respiratory: Satisfactory Pain: Controlled Complications: Absent Post Op Complications Complications None Follow Up Care/Instructions Patient Instructions None needed. Anesthesiology Discharge Order Discharge Order Patient is doing well, no complaints, stable vital signs, no apparent adverse anesthesia problems. No complications reported per nursing. MARLEEN BEASLEY CRNA Jan 17, 2018 14:50
[2018-01-17 15:25] VITALS: BP 115/66
[2018-01-17 16:33] VITALS: BP 115/66
--- NOTE | 2018-01-17 22:43 | OPERATIVE REPORT ---
DATE OF SERVICE: PREOPERATIVE DIAGNOSES: 1. Epigastric pain. 2. Urinary tract infection. 3. Rule out gastritis. POSTOPERATIVE DIAGNOSES: 1. Gastritis. 2. Urinary tract infection. PROCEDURE: EGD with biopsy. SURGEON: Dr. Banuelos. FIRE EXTINGUISHER CHARGER: None. ANESTHESIA: IV sedation by the DENTIST ATTENDANT. SPECIMEN: One biopsy from the antrum. BLOOD LOSS: Scant. FLUIDS: Per anesthesia. POSTOPERATIVE CONDITION: Stable. INDICATION FOR PROCEDURE: The patient is a 32-year-old female who was initially admitted for abdominal pain and possibly gallbladder problems. She had an ultrasound and CT, which showed no stones. HIDA scan showed basically normal ejection fraction , which is mildly elevated and her complaints sounded more like epigastric pain and gastritis. FINDINGS: The patient had some gastritis, but the duodenum looked fine. Pictures were taken. No hiatal hernia. Esophagus and GE junction looked good. PROCEDURE NOTE: After informed consent was obtained, the patient was brought to the endoscopy suite, placed in the bed in the left lateral decubitus position.. She was administered IV sedation by DENTIST ATTENDANT who then monitored her vitals the entire time, heart rate, blood pressure and pulse ox and the scope was inserted down the mouth into the esophagus and down in the stomach. It went down into the stomach, able to push into the first portion of duodenum, took a picture, appeared normal. Pulled back into the antrum. There appeared to be some erythema, but no ulcers seen. Elected to do a biopsy here. Retroflexed. There was not any hiatal hernia. Cardia looked okay and then pulled the scope into the esophagus. GE junction looked good. Picture was taken and then pulled the scope out of the esophagus and out of the mouth. The patient tolerated the procedure and she was recovered in the endoscopy suite. Job ID: [id number] DocumentID: [id number] Dictated Date: 01/17/2018 15:51:14 Content Strategist Date: 01/17/2018 22:42:29 Dictated By: RANDALL BANUELOS DO
[2018-01-18] MEDS ORDERED: cefTRIAXone 1 GM/NS 100 ML IVPB IV SCH ×2
[2018-01-18] MEDS ORDERED: proPOfol 200 MG/20 ML (DIPRIVAN) VIAL IV ONE (08:56)
== END 2018-01-17 14:42 | disposition home or self-care (01) ==
LOC: EDUNIT# 19:58 → ER 20:00 → 4TH 23:10
PROVIDERS: ADMIT Surgery; ATTEND Surgery
DX: K29.70 Gastritis, unspecified, without bleeding (principal); N39.0 Urinary tract infection, site not specified; E03.9 Hypothyroidism, unspecified; Z79.899 Other long term (current) drug therapy
CPT/HCPCS: 36415; 74018; 74176; 76700; 78227; 80053; 81000; 82150; 83690; 84703; 85025; 87088; 96361; 96365; 96375; 96376; G0378

== ENCOUNTER → 2019-04-20 | Outpatient (CLI) | payer MEDICAID ==
[~2019-04-20] MED LIST changes: +CEPH-507 PO; +IBUP-1780 PO; +LEVO50TA6 PO; +PANT40SU PO; +PHEN37.53 PO
--- NOTE | 2019-04-20 09:47 | Diagnostic Imaging Report ---
PROCEDURE: US Gallbladder. TECHNIQUE: Multiple real-time grayscale images were obtained over the right upper quadrant in various projections. INDICATION: Chronic diarrhea and biliary colic. FINDINGS: The liver is normal in size at 17.1 cm. No discrete liver mass is identified. The portal vein is patent and shows normal direction of flow. The gallbladder is without stones or sludge. No wall thickening or biliary ductal dilatation is seen. Pancreas is unremarkable. Aorta is nonaneurysmal. IVC is patent. Right kidney is without evidence of calculi or hydronephrosis. There is no ascites. IMPRESSION: Unremarkable gallbladder ultrasound. Dictated by: Dictated on workstation # [id number]
== END ==
LOC: RAD 06:33
PROVIDERS: ATTEND Obstetrics & Gynecology
DX: K52.9 Noninfective gastroenteritis and colitis, unspecified (principal); K80.50 Calculus of bile duct without cholangitis or cholecystitis without obstruction
CPT/HCPCS: 76705

== ENCOUNTER → 2019-05-12 | Outpatient (CLI) | payer MEDICAID ==
[~2019-05-12] MED LIST changes: +CATHETER FLUSH 10 ML SYR IV PRN
--- NOTE | 2019-05-12 14:01 | Diagnostic Imaging Report ---
INDICATION: Biliary colic. TECHNIQUE: Patient was administered 5.5 mCi technetium 99m Choletec intravenously and imaging over the abdomen was performed. After 60 minutes, the patient ingested one can of Ensure and a gallbladder ejection fraction was calculated. FINDINGS: Homogeneous uptake of activity by the liver is seen. There is prompt excretion of activity into the common duct and gallbladder. Normal passage of activity into the small bowel is seen. Gallbladder ejection fraction is 39%. IMPRESSION: Normal HIDA scan and gallbladder ejection fraction. Dictated by: Dictated on workstation # [id number]
== END ==
LOC: CARD 11:23
PROVIDERS: ATTEND Obstetrics & Gynecology
DX: K80.50 Calculus of bile duct without cholangitis or cholecystitis without obstruction (principal)
CPT/HCPCS: 78227

== ENCOUNTER 2020-03-25 05:39 | Outpatient (RCR) | payer MEDICAID ==
[~2020-03-25] VITALS: Ht 170 cm; Wt 116.0 kg
[~2020-03-25 05:39] MED LIST changes: -CATHETER FLUSH 10 ML SYR IV PRN; +KRIL1CAP18 PO; +LISI10TA2 PO; +LISI1TAB29 PO; +PROP10TA8 PO
== END 2020-03-25 15:10 | disposition home or self-care (01) ==
LOC: PREOP 05:39
PROVIDERS: ATTEND Obstetrics & Gynecology
DX: Z01.818 Encounter for other preprocedural examination (principal); Z11.59 Encounter for screening for other viral diseases
CPT/HCPCS: 87635

== ENCOUNTER 2020-03-27 10:56 | Day surgery (SDC) | payer MEDICAID ==
[2020-03-27] VITALS (10 sets, daily range): BP systolic 125–154; BP diastolic 86–100
[~2020-03-27] VITALS: Ht 170 cm; Wt 116.0 kg
[2020-03-27] MEDS ORDERED: ceFAZolin INJECTION 1,000 MG in WATER (STERILE) FOR INJECTION 10 ML IV ONE (11:15)
[2020-03-27] MEDS ORDERED: CATHETER FLUSH 10 ML SYR IV PRN (11:30)
[2020-03-27 12:05] LABS: BASOPHILS % (AUTO) 1 % (0-10); EOSINOPHILS # (AUTO) 0.2 10^3/uL (0.0-0.3); EOSINOPHILS % (AUTO) 4 % (0-10); HEMATOCRIT 38 % (35-52); HEMOGLOBIN 12.6 G/DL (11.5-16.0); LYMPHOCYTES # (AUTO) 1.6 X 10^3 (1.0-4.0); LYMPHOCYTES % (AUTO) 26 % (12-44); MEAN CORPUSCULAR HEMOGLOBIN 31 PG (25-34); MEAN CORPUSCULAR HGB CONC 33 G/DL (32-36); MEAN CORPUSCULAR VOLUME 92 FL (80-99); MEAN PLATELET VOLUME 10.8 FL (7.4-10.4); MONOCYTES # (AUTO) 0.4 X 10^3 (0.0-1.0); MONOCYTES % (AUTO) 7 % (0-12); NEUTROPHILS # (AUTO) 3.8 X 10^3 (1.8-7.8); NEUTROPHILS % (AUTO) 63 % (42-75); PLATELET COUNT 235 10^3/uL (130-400); RED CELL DISTRIBUTION WIDTH 13.2 % (10.0-14.5)
[2020-03-27] MEDS ORDERED: meTOprolol 5 MG/5 ML (LOPRESSOR) VIAL ONE (12:17)
[2020-03-27] MEDS ORDERED: DEXAMETHASONE 10 MG/ML (DECADRON) 1 ML VIAL ONE (12:23)
[2020-03-27] MEDS ORDERED: LIDOCAINE PF 2% 5 ML (XYLOCAINE) VIAL ONE (12:23)
[2020-03-27] MEDS ORDERED: MIDAZOLAM 2 MG/2 ML (VERSED) VIAL ONE (12:23)
[2020-03-27] MEDS ORDERED: proPOfol 200 MG/20 ML (DIPRIVAN) VIAL IV ONE (12:23)
[2020-03-27] MEDS ORDERED: ROCURONIUM 10 MG/ML 5 ML SYRINGE IV ONE ×2 (12:23→14:46)
[2020-03-27] MEDS ORDERED: ONDANSETRON 4 MG/2 ML (SDV) Z0FRAN ONE (12:23)
[2020-03-27] MEDS ORDERED: fentaNYL INJECTION 100 MCG/2 ML AMP ONE ×3 (12:24→15:22)
[2020-03-27] MEDS ORDERED: BUP/EPI 0.5% 1:200,000 (SENSORCAINE) 30 ML VIAL ONE (12:25)
[2020-03-27] MEDS ORDERED: meTOprolol 5 MG/5 ML (LOPRESSOR) VIAL IV ONE (12:30)
[2020-03-27] MEDS: LACTATED RINGERS 1,000 ML IV PRN ×3 (12:31→14:56)
[2020-03-27] MEDS ORDERED: SEVOFLURANE (ULTANE) 15 ML INHAL SOLN ONE ×9 (12:54→15:48)
[2020-03-27] MEDS ORDERED: GLYCOPYRROLATE 0.2 MG/ML (ROBINUL) 2 ML VIAL ONE (12:58)
[2020-03-27] MEDS ORDERED: NEOSTIGMINE 3 MG/3 ML VIAL ONE (12:58)
--- OUTSIDE RECORDS SUMMARY | 2020-03-27 13:23 | XMS REPORT ---
Author Author Dominique Torres Organization [facility] [place] Address [address] [place] [address] Care Team Providers Care Station Baggage Agent Name Role Phone JENNI Torres Unavailable PROBLEMS Type Condition ICD9-CM Code EOC63-OX Code Onset Dates Condition S tatus SNOMED Code Problem Primary hypothyroidism E03.9 Apr, 0 [id number] ALLERGIES No Information ENCOUNTERS Encounter Location Date Diagnosis [facility] [address] [facility] [id number] [place] [address] May, Strep throat J02.0 [facility] [place] [address] [address] Mar, Plantar fasciitis M72.2 [facility] [address] [address] February, Poison brenda dermatitis L23.7 [facility] [address] [address] Jan, Poison brenda dermatitis L23.7 [facility] [address] [address] Jan, Acute bilateral low back pain without sciatica M54.5 and Melasma L81.1 [facility] [address] [address] Oct, Strep pharyngitis J02.0 and Poison brenda dermatitis L23.7 [facility] [place] [address] [address] Sep, [facility] [place] [address] [address] February, Acquired hypothyroidism E03.9 [facility] [place] [address] [address] Sep, [place] [address] [address] Jul, Well woman exam Z01.419 and Cervical can cer screening Z12.4 [place] [address] [address] Jul, Acquired hypothyroidism E03.9 ; Myalgia M79.1 and Painful menstrual periods N94.6 [facility] [address] [address] 27 Jun, 2017 Chronic seasonal allergic rh initis due to other allergen J30.2 [place] [address] [address] 08 Mar, 2017 Acquired hypothyroidism E03.9 [facility]ALK IN [place] [address] [address] 14 Jan, 2017 Sore throat J02.9 and Strep throat J02.0 [facility] WALK IN [place] [address] [address] 08 Jan, 2017 Scabies B86 and Sore throat J02.9 [place] [address] [address] Dec, Acquired hypothyroidism E03.9 [place] [address] [address] Dec, Acquired hypothyroidism E03.9 [place] [address] [address] Aug, Acquired hypothyroidism E03.9 [place] [address] [address] May, [place] [address] [address] May, Encounter to establish care Z76.89 ; Gucci pecia L65.9 ; Fatigue, unspecified type R53.83 ; Left wrist pain M25.532 ; Pain in right knee M25.561 and Pain in left knee M25.562 [facility] [address] [id number] [place] [address] Jan, [facility] [address] [id number] [place] [address] Jan, [facility] [address] [id number] [place] [address] Apr, [facility] [address] [id number] [place] [address] Apr, [facility] [address] [id number] [place] [address] Apr, [facility] [address] [id number] [place] [address] Apr, [facility] [address] [id number] [place] [address] Dec, [facility] [address] [id number] [place] [address] Dec, [facility] [address] [id number] [place] [address] Nov, [facility] [address] [id number] [place] [address] Nov, [facility] [address] [id number] [place] [address] Nov, [facility] [address] [id number] [place] [address] Nov, [facility] [address] [id number] [place] [address] Apr, [facility] [address] [id number] [place] [address] February, [facility] [address] [id number] [place] [address] Jan, [facility] [address] [id number] [place] [address] Jan, [facility] [address] [id number] [place] [address] 23 Jan, 2013 [facility] [address] [id number] [place] [address] 19 Jan, 2013 [facility] [address] [id number] [place] [address] 17 Jan, 2013 [facility] [address] [id number] [place] [address] 16 Jan, 2013 [facility] [address] [id number] [place] [address] 15 Jan, 2013 [facility] [address] [id number] [place] [address] Jan, [facility] [address] [id number] [place] [address] 18 Dec, 2012 [facility] [address] [id number] [place] [address] 06 Dec, 2012 [facility] [address] [id number] [place] [address] 04 Dec, 2012 [facility] [address] [id number] [place] [address] 20 Nov, 2012 [facility] [address] [id number] [place] [address] 07 Nov, 2012 [facility] [address] [id number] [place] [address] 07 Nov, 2012 [facility] [address] [id number] [place] [address] 06 Nov, 2012 [facility] [address] [id number] [place] [address] Oct, [facility] [address] [id number] [place] [address] Sep, [facility] [address] [id number] [place] [address] Sep, [facility] [address] [id number] [place] [address] 17 Sep, 2012 [facility] [address] [id number] [place] [address] 16 Sep, 2012 [facility] [address] [id number] [place] [address] 13 Sep, 2012 [facility] [address] [id number] [place] [address] 12 Sep, 2012 [facility] [address] [id number] [place] [address] Sep, [facility] [address] [id number] [place] [address] 14 Aug, 2012 [facility] [address] [id number] [place] [address] 14 Aug, 2012 [facility] [address] [id number] [place] [address] Aug, [facility] [address] [id number] [place] [address] Aug, [facility] [address] [id number] [place] [address] 08 Jul, 2012 [facility] [address] [id number] [place] [address] 02 Jul, 2012 [facility] [address] [id number] [place] [address] Jul, [facility] [address] [id number] [place] [address] 28 Jun, 2012 [facility] [address] [id number] [place] [address] 27 Sep, 2011 [facility] [address] [id number] [place] [address] 16 Sep2011 [facility] [address] [id number] [place] [address] 14 Sep2011 [facility] [address] [id number] [place] [address] 11 Sep2011 [facility] [address] [id number] [place] [address] February, [facility] [address] [id number] [place] [address] February, [facility] [address] [id number] [place] [address] February, [facility] [address] [id number] [place] [address] Jan, [facility] [address] [id number] [place] [address] Jan, [facility] [address] [id number] [place] [address] Jan, [facility] [address] [id number] [place] [address] Jan, [facility] [address] [id number] [place] [address] Jan, [facility] [address] [id number] [place] [address] Dec, [facility] [address] [id number] [place] [address] Dec, [facility] [address] [id number] [place] [address] Dec, [facility] [address] [id number] [place] [address] Dec, [facility] [address] [id number] [place] [address] Nov, [facility] [address] [id number] [place] [address] Jul, [facility] [address] [place] [id number] [place] [address] Jul, [facility] [address] [id number] [place] [address] Mar, [facility] [address] [id number] [place] [address] Mar, [facility] [place] [address] [id number] [place] [address] 13 Jan, 2011 [facility] [place] [address] [place] [id number] [place] [address] 15 Dec, 2010 [facility] [place] [address] [id number] [place] [address] 29 Sep, 2010 [facility] [place] [address] [place] [id number] [place] [address] Sep, [facility] [place] [address] [place] [id number] [place] [address] Sep, [facility] [place] [address] [place] [id number] [place] [address] Sep, [facility] [place] [address] [place] [id number] [place] [address] Sep, [facility] [place] [address] [place] [id number] [place] [address] Aug, [facility] [place] [address] [place] [id number] [place] [address] Aug, [facility] [place] [address] [place] [id number] [place] [address] Jul, [facility] [place] [address] [place] [id number] [place] [address] Jul, [facility] [place] [address] [place] [id number] [place] [address] Jul, [facility] [place] [address] [place] [id number] [place] [address] Nov, IMMUNIZATIONS No Known Immunizations SOCIAL HISTORY Never Assessed REASON FOR VISIT PLAN OF CARE VITAL SIGNS MEDICATIONS No Known Medications RESULTS No Results PROCEDURES No Known procedures INSTRUCTIONS MEDICATIONS ADMINISTERED No Known Medications MEDICAL (GENERAL) HISTORY Type Description Date Medical History Hypothryoid Surgical History Bilateral Tubal Ligation Surgical History dilatation and curettage Surgical History section x2 Hospitalization History surgeries and childbirth Hospitalization History [facility] Gastritous 01/16/2018
--- OUTSIDE RECORDS SUMMARY | 2020-03-27 13:23 | XMS REPORT ---
Author Author Dominique Bishop Doctor Organization [facility] Address Unknown Phone Unavailable Care Team Providers Care Hydrocrane Operator Name Role Phone Migration, Doctor Unavailable Unavailable PROBLEMS Type Condition ICD9-CM Code [id number] Code Onset Dates Condition S tatus SNOMED Code Problem Primary hypothyroidism E03.9 Apr, 0 [id number] ALLERGIES No Information ENCOUNTERS Encounter Location Date Diagnosis [facility] [address] [place] [address] February, Poison brenda dermatitis L23.7 [facility] [address] [place] [address] Jan, Poison brenda dermatitis L23.7 [facility] [address] [place] [address] Jan, Acute bilateral low back pain without sciatica M54.5 and Melasma L81.1 [facility] [address] [place] [address] Oct, Strep pharyngitis J02.0 and Poison brenda dermatitis L23.7 [facility] [address] [place] [place] [id number] [address] [place] [address] Sep, [facility] [id number] [address] [place] [address] February, Acquired hypothyroidism E03. 9 [facility] [id number] [address] [place] [address] Sep, [place] [address] [id number] [address] [place] [address] Jul, Well woman exam Z01.419 and Cervical cancer screening Z12.4 [place] [address] [place] [id number] [place] [address] Jul, Acquired hypothyroidism E03. 9 ; Myalgia M79.1 and Painful menstrual periods N94.6 [facility] [address] [facility] [id number] [address] [place] [address] Jun, Chronic seasonal allergic rh initis due to other allergen J30.2 [facility] [address] [facility] [id number] [address] [place] [address] Mar, Acquired hypothyroidism E03. 9 [facility] [address] [facility] [id number] [address] [place] [address] Jan, Sore throat J02.9 and Strep throat J02.0 [facility] [address] [facility] [id number] [address] [place] [address] Jan, Scabies B86 and Sore throat J02.9 [facility] [address] [facility] [id number] [address] [place] [id number] Dec, Acquired hypothyroidism E03. 9 [facility] [address] [id number] [place] [address] Dec, Acquired hypothyroidism E03. 9 [facility] [id number] [place] [address] Aug, Acquired hypothyroidism E03. 9 [place] [address] [place] [id number] [place] [address] May, [facility] [address] [address] May, Encounter to establish care Z76.89 ; Alopecia L65.9 ; Fatigue, unspecified type R53.83 ; Left wrist pain M25.532 ; Pain in right knee M25.561 and Pain in left knee M25.562 [place] [address] [place] [place] [id number] [address] [place] [address] Jan, [facility] [address] [id number] [place] [address] Jan, [place] [id number] [address] Apr, [facility] [address] [id number] [address] [place] [address], [place] [address] Apr, [facility] [address] [id number] [address] [place] [address], [place] [address] Apr, [facility] [address] [id number] [address] [place] [address], [place] [address] Apr, [facility] [address] [id number] [address] [place] [address], [place] [address] Dec, [facility] [address] [id number] [address] [place] [address], [place] [address] Dec, [facility] [address] [id number] [address] [place] [address], [place] [address] Nov, [facility] [address] [id number] [address] [place] [address], [place] [address] Nov, [facility] [address] [id number] [address] [place] [address], [place] [address] Nov, [facility] [address] [id number] [address] [place] [address], [place] [address] Nov, [facility] [address] [id number] [address] [place] [address], [place] [address] Apr, [facility] [address] [id number] [address] [place] [address], [place] [address] February, [facility] [address] [id number] [address] [place] [address], [place] [address] Jan, [facility] [address] [id number] [address] [place] [address], [place] [address] Jan, [facility] [address] [id number] [address] [place] [address], [place] [address] Jan, [facility] [address] [id number] [address] [place] [address], [place] [address] Jan, [facility] [address] [id number] [address] [place] [address], [place] [address] 17 Jan, 2013 [facility] [address] [id number] [address] [place] [address], [place] [address] 16 Jan, 2013 [facility] [address] [id number] [address] [place] [address], [place] [address] 15 Jan, 2013 [facility] [address] [id number] [address] [place] [address], [place] [address] 01 Jan, 2013 [facility] [address] [id number] [address] [place] [address], [place] [address] 18 Dec, [address] [facility] [address] [id number] [address] [place] [address], [place] [address] 06 Dec, [address] [facility] [address] [id number] [address] [place] [address], [place] [address] 04 Dec, 2012 [facility] [address] [id number] [address] [place] [address], [place] [address] 20 Nov, 2012 [facility] [address] [id number] [address] [place] [address], [place] [address] 07 Nov, 2012 [facility] [address] [id number] [address] [place] [address], [place] [address] 07 Nov, 2012 [facility] [address] [id number] [address] [place] [address], [place] [address] 06 Nov, 2012 [facility] [address] [id number] [address] [place] [address], [place] [address] 09 Oct, [address] [facility] [address] [id number] [address] [place] [address], [place] [address] 18 Sep, 2012 [facility] [address] [id number] [address] [place] [address], [place] [address] 18 Sep, [address] [facility] [address] [id number] [address] [place] [address], [place] [address] 17 Sep, [address] [facility] [address] [id number] [address] [place] [address], [place] [address] 16 Sep, 2012 [facility] [address] [id number] [address] [place] [address], [place] [address] 13 Sep, 2012 [facility] [address] [id number] [address] [place] [address], [place] [address] 12 Sep, 2012 [facility] [address] [id number] [address] [place] [address], [place] [address] 12 Sep, 2012 [facility] [address] [id number] [address] [place] [address], [place] [address] 14 Aug, 2012 [facility] [address] [id number] [address] [place] [address], [place] [address] 14 Aug, 2012 [facility] [address] [id number] [address] [place] [address], [place] [address] Aug, [facility] [address] [id number] [address] [place] [address], [place] [address] Aug, [facility] [address] [id number] [address] [place] [address], [place] [address] 08 Jul, 2012 [facility] [address] [id number] [address] [place] [address], [place] [address] 02 Jul, 2012 [facility] [address] [id number] [address] [place] [address], [place] [address] Jul, [facility] [address] [id number] [address] [place] [address], [place] [address] 28 Jun, 2012 [facility] [address] [id number] [address] [place] [address], [place] [address] 27 Sep2011 [facility] [address] [id number] [address] [place] [address] [address] 16 Sep2011 [facility] [address] [id number] [address] [place] [address], [place] [address] 14 Jun, 2012 [facility] [address] [id number] [address] [place] [address], [place] [address] 11 Jun, 2012 [facility] [address] [id number] [address] [place] [address], [place] [address] February, [facility] [address] [id number] [address] [place] [address], [place] [address] February, [facility] [address] [id number] [address] [place] [address], [place] [address] February, [facility] [address] [id number] [address] [place] [address], [place] [address] Jan, [facility] [address] [id number] [address] [place] [address], [place] [address] Jan, [facility] [address] [id number] [address] [place] [address], [place] [address] Jan, [facility] [address] [id number] [address] [place] [address], [place] [address] Jan, [facility] [address] [id number] [address] [place] [address], [place] [address] Jan, [facility] [address] [id number] [address] [place] [address], [place] [address] Dec, [facility] [address] [id number] [address] [place] [address], [place] [address] Dec, [facility] [address] [id number] [address] [place] [address], [place] [address] Dec, [facility] [address] [id number] [address] [place] [address], [place] [address] Dec, [facility] [address] [id number] [address] [place] [address], [place] [address] Nov, [facility] [address] [id number] [address] [place] [address], [place] [address] Jul, [facility] [address] [id number] [address] [place] [address], [place] [address] Jul, [facility] [address] [id number] [address] [place] [address], [place] [address] Mar, [facility] [address] [id number] [address] [place] [id number] 13 Mar, 2011 [facility] [address] [id number] [address] [place] [address] 13 Jan, 2011 [facility] [address] [id number] [address] [place] [id number] 15 Dec, 2010 [facility] [address] [id number] [address] [place] [address] Sep, [facility] [address] [id number] [address] [place] [address] Sep, [facility] [address] [id number] [address] [place] [address] Sep, [facility] [address] [id number] [address] [place] [address] Sep, [facility] [address] [id number] [address] [place] [address] Sep, [facility] [address] [id number] [address] [place] [address] Aug, [facility] [address] [id number] [address] [place] [id number] Aug, [facility] [address] [id number] [address] [place] [address] Jul, [facility] [address] [id number] [address] [place] [address] Jul, [facility] [address] [id number] [address] [place] [address] Jul, [facility] [address] [id number] [address] [place] [address] Nov, IMMUNIZATIONS No Known Immunizations SOCIAL HISTORY Never Assessed REASON FOR VISIT EMR-[facility] PLAN OF CARE VITAL SIGNS MEDICATIONS Unknown Medications RESULTS No Results PROCEDURES No Known procedures INSTRUCTIONS MEDICATIONS ADMINISTERED No Known Medications MEDICAL (GENERAL) HISTORY Type Description Date Medical History Hypothryoid Surgical History Bilateral Tubal Ligation Surgical History dilatation and curettage Surgical History section x2 Hospitalization History surgeries and childbirth Hospitalization History [facility] 01/16/2018
--- OUTSIDE RECORDS SUMMARY | 2020-03-27 13:23 | XMS REPORT ---
Author Author Dominique Torres Organization [facility] Address [address] [place] [address] Care Team Providers Care Bill Clerk Name Role Phone JENNI Torres Unavailable PROBLEMS Type Condition ICD9-CM Code [id number] Code Onset Dates Condition S tatus SNOMED Code Problem Primary hypothyroidism E03.9 Apr, 0 [id number] ALLERGIES No Information ENCOUNTERS Encounter Location Date Diagnosis [facility] [address] [facility] [id number] [place] [address] May, Strep throat J02.0 [facility] [address] [address] Mar, Plantar fasciitis M72.2 [facility] [address] [address] February, Poison brenda dermatitis L23.7 [facility] [address] [address] Jan, Poison brenda dermatitis L23.7 [facility] [address] [address] Jan, Acute bilateral low back pain without sciatica M54.5 and Melasma L81.1 [facility] [address] [address] Oct, Strep pharyngitis J02.0 and Poison brenda dermatitis L23.7 [facility] [address] [address] Sep, [facility] [address] [address] February, Acquired hypothyroidism E03.9 [facility] [address] [address] Sep, [place] [address] [address] Jul, Well woman exam Z01.419 and Cervical can cer screening Z12.4 [place] [address] [address] Jul, Acquired hypothyroidism E03.9 ; Myalgia M79.1 and Painful menstrual periods N94.6 [facility] [address] [address] 27 Jun, 2017 Chronic seasonal allergic rh initis due to other allergen J30.2 [place] [address] [address] 08 Mar, 2017 Acquired hypothyroidism E03.9 [facility] [place] [address] [address] 14 Jan, 2017 Sore throat J02.9 and Strep throat J02.0 [facility] [place] [address] [address] 08 Jan, 2017 Scabies B86 and Sore throat J02.9 [place] [address] [address] Dec, Acquired hypothyroidism E03.9 [place] [address] [address] Dec, Acquired hypothyroidism E03.9 [place] [address] [address] Aug, Acquired hypothyroidism E03.9 [place] [address] [address] May, [place] [address] [address] May, Encounter to establish care Z76.89 ; Gucci pecia L65.9 ; Fatigue, unspecified type R53.83 ; Left wrist pain M25.532 ; Pain in right knee M25.561 and Pain in left knee M25.562 [facility] [address] [id number] [place] [address] Jan, [facility] [address] [id number] [place] [address] Jan, [facility] [address] [id number] [place] [address] Apr, [facility] [address] [id number] [place] [address] Apr, [facility] [address] [id number] [place] [address] Apr, [facility] [address] [id number] [place] [address] Apr, [facility] [address] [id number] [place] [address] Dec, [facility] [address] [id number] [place] [address] Dec, [facility] [address] [id number] [place] [address] Nov[facility] [address] [id number] [place] [address] Nov, [facility] [address] [id number] [place] [address] Nov, [facility] [address] [id number] [place] [address] Nov, [facility] [address] [id number] [place] [address] Apr, [facility] [address] [id number] [place] [address] February, [facility] [address] [id number] [place] [address] Jan, [facility] [address] [id number] [place] [address] Jan, [facility] [address] [id number] [place] [address] 23 Jan, 2013 [facility] [address] [id number] [place] [address] 19 Jan, 2013 [facility] [address] [id number] [place] [address] 17 Jan, 2013 [facility] [address] [id number] [place] [address] 16 Jan, 2013 [facility] [address] [id number] [place] [address] 15 Jan, 2013 [facility] [address] [id number] [place] [address] Jan, [facility] [address] [id number] [place] [address] 18 Dec, 2012 [facility] [address] [id number] [place] [address] 06 Dec, 2012 [facility] [address] [id number] [place] [address] 04 Dec, 2012 [facility] [address] [id number] [place] [address] 20 Nov, 2012 [facility] [address] [id number] [place] [address] 07 Nov, 2012 [facility] [address] [id number] [place] [address] 07 Nov, 2012 [facility] [address] [id number] [place] [address] 06 Nov, 2012 [facility] [address] [id number] [place] [address] Oct, [facility] [address] [id number] [place] [address] Sep, [facility] [address] [id number] [place] [address] Sep, [facility] [address] [id number] [place] [address] 17 Sep, 2012 [facility] [address] [id number] [place] [address] 16 Sep, 2012 [facility] [address] [id number] [place] [address] 13 Sep, 2012 [facility] [address] [id number] [place] [address] 12 Sep, 2012 [facility] [address] [id number] [place] [address] Sep, [facility] [address] [id number] [place] [address] 14 Aug, 2012 [facility] [address] [id number] [place] [address] 14 Aug, 2012 [facility] [address] [id number] [place] [address] Aug, [facility] [address] [id number] [place] [address] Aug, [facility] [address] [id number] [place] [address] 08 Jul, 2012 [facility] [address] [id number] [place] [address] 02 Jul, 2012 [facility] [address] [id number] [place] [address] Jul, [facility] [address] [id number] [place] [address] 28 Jun, 2012 [facility] [address] [id number] [place] [address] 27 Sep, 2011 [facility] [address] [id number] [place] [address] 16 Sep2011 [facility] [address] [id number] [place] [address] 14 Sep2011 [facility] [address] [id number] [place] [address] 11 Sep2011 [facility] [address] [id number] [place] [address] February, [facility] [address] [id number] [place] [address] February, [facility] [address] [id number] [place] [address] February, [facility] [address] [id number] [place] [address] Jan, [facility] [address] [id number] [place] [address] Jan, [facility] [address] [id number] [place] [address] Jan, [facility] [address] [id number] [place] [address] Jan, [facility] [address] [id number] [place] [address] Jan, [facility] [address] [id number] [place] [address] Dec, [facility] [address] [id number] [place] [address] Dec, [facility] [address] [id number] [place] [address] Dec, [facility] [address] [id number] [place] [address] Dec, [facility] [address] [id number] [place] [address] Nov, [facility] [address] [id number] [place] [address] Jul, [facility] [address] [place] [id number] [place] [address] Jul, [facility] [address] [id number] [place] [address] Mar, [facility] [address] [id number] [place] [address] Mar, [facility] [address] [id number] [place] [address] 13 Jan, 2011 [facility] [address] [place] [id number] [place] [address] 15 Dec, 2010 [facility] [address] [id number] [place] [address] 29 Sep, 2010 [facility] [address] [place] [id number] [place] [address] Sep, [facility] [address] [place] [id number] [place] [address] Sep, [facility] [address] [place] [id number] [place] [address] Sep, [facility] [address] [place] [id number] [place] [address] Sep, [facility] [address] [place] [id number] [place] [address] Aug, [facility] [address] [place] [id number] [place] [address] Aug, [facility] [address] [place] [id number] [place] [address] Jul, [facility] [address] [place] [id number] [place] [address] Jul, [facility] [address] [place] [id number] [place] [address] Jul, [facility] [address] [place] [id number] [place] [address] Nov, IMMUNIZATIONS No Known Immunizations SOCIAL HISTORY [...] Hospitalization History surgeries and childbirth Hospitalization History [facility] Gastritous 01/16/2018
--- OUTSIDE RECORDS SUMMARY | 2020-03-27 13:23 | XMS REPORT ---
Author Author Dominique Hope [facility] Address [address] [place] [address] Care Team Providers Care Housekeeping/Laundry Name Role Phone MELISA Hope Unavailable PROBLEMS Type Condition ICD9-CM Code [id number] Code Onset Dates Condition S tatus SNOMED Code Problem Primary hypothyroidism E03.9 Apr, 0 [id number] ALLERGIES No Information ENCOUNTERS Encounter Location Date Diagnosis [facility] [address] [id number] [address] [place] [address] May, Strep throat J02.0 [facility] [id number] [address] [place] [address] Mar, Plantar fasciitis M72.2 [facility] [id number] [place] [phone] February, Poison brenda dermatitis L23.7 [facility] [id number] [place] [phone] Jan, Poison brenda dermatitis L23.7 [facility] [id number] [place] [phone] Jan, Acute bilateral low back pain without sciatica M54.5 and Melasma L81.1 [facility] [id number] [place] [address] 2[address] Oct, Strep pharyngitis J02.0 and Poison brenda dermatitis L23.7 [facility] [address] [facility] [id number] [address] [place] [address] Sep, [facility] [id number] [address] [place] [address] February, Acquired hypothyroidism E03. 9 [facility] [address] [facility] [id number] [address] [place] [address] Sep, [facility] [id number] [place] [address] Jul, Well woman exam Z01.419 and Cervical cancer screening Z12.4 [place] [id number] [place] [address] Jul, Acquired hypothyroidism E03. 9 ; Myalgia M79.1 and Painful menstrual periods N94.6 [facility] [id number] [address] [place] [address] Jun, Chronic seasonal allergic rh initis due to other allergen J30.2 [place] [id number] [place] [address] Mar, Acquired hypothyroidism E03. 9 [facility] [address] [address] 14 Jan, 2017 Sore throat J02.9 and Strep throat J02.0 [facility] [id number] [address] [place] [address] 08 Jan, 2017 Scabies B86 and Sore throat J02.9 [facility] [id number] [address] [place] [address] Dec, Acquired hypothyroidism E03. 9 [place] [id number] [place] [address] Dec, Acquired hypothyroidism E03. 9 [facility] [id number] [place] [address] Aug, Acquired hypothyroidism E03. 9 [place] [id number] [place] [address] May, [facility] [id number] [place] [address] May, Encounter to establish care Z76.89 ; Alopecia L65.9 ; Fatigue, unspecified type R53.83 ; Left wrist pain M25.532 ; Pain in right knee M25.561 and Pain in left knee M25.562 [facility] [address] [id number] [address] [place] [address] Jan, [facility] [address] [id number] [address] [place] [address] Jan, [facility] [address] [id number] [address] [place] [address] Apr, [facility] [address] [id number] [address] [place] [address] Apr, [facility] [address] [id number] [address] [place] [address] Apr, [facility] [address] [id number] [address] [place] [address] Apr, [facility] [address] [id number] [address] [place] [phone] Dec, [facility] [address] [id number] [address] [place] [address] Dec, [facility] [address] [id number] [address] [place] [address] Nov, [facility] [address] [id number] [address] [place] [address] Nov, [facility] [address] [id number] [address] [place] [address] Nov, [facility] [address] [id number] [address] [place] [address] Nov, [facility] [address] [id number] [address] [place] [address] Apr, [facility] [address] [id number] [address] [place] [phone] February, [facility] [address] [id number] [address] [place] [address], [place] [address] 25 Jan, 2013 [facility] [address] [id number] [address] [place] [address], [place] [address] 24 Jan, 2013 [facility] [address] [id number] [address] [place] [address], [place] [address] 23 Jan, 2013 [facility] [address] [id number] [address] [place] [address], [place] [address] 19 Jan, 2013 [facility] [address] [id number] [address] [place] [address], [place] [address] 17 Jan, 2013 [facility] [address] [id number] [address] [place] [address], [place] [address] 16 Jan, 2013 [facility] [address] [id number] [address] [place] [address], [place] [address] 15 Jan, 2013 [facility] [address] [id number] [address] [place] [address], [place] [address] Jan, [facility] [address] [id number] [address] [place] [address], [place] [address] 18 Dec, 2012 [facility] [address] [id number] [address] [place] [address], [place] [address] 06 Dec, 2012 [facility] [address] [id number] [address] [place] [address], [place] [address] 04 Dec, 2012 [facility] [address] [id number] [address] [place] [address], [place] [address] 20 Nov, 2012 [facility] [address] [id number] [address] [place] [address], [place] [address] 07 Nov, 2012 [facility] [address] [id number] [address] [place] [address], [place] [address] 07 Nov, 2012 [facility] [address] [id number] [address] [place] [address], [place] [address] 06 Nov, 2012 [facility] [address] [id number] [address] [place] [address], [place] [address] 09 Oct, 2012 [facility] [address] [id number] [address] [place] [address], [place] [address] 18 Sep, 2012 [facility] [address] [id number] [address] [place] [address], [place] [address] 18 Sep, 2012 [facility] [address] [id number] [address] [place] [address], [place] [address] 17 Sep, 2012 [facility] [address] [id number] [address] [place] [address], [place] [address] 16 Sep, 2012 [facility] [address] [id number] [address] [place] [address], [place] [address] 13 Sep, 2012 [facility] [address] [id number] [address] [place] [address], [place] [address] 12 Sep, 2012 [facility] [address] [id number] [address] [place] [address], [place] [address] 12 Sep, 2012 [facility] [address] [id number] [address] [place] [address], [place] [address] 14 Aug, 2012 [facility] [address] [id number] [address] [place] [address], [place] [address] 14 Aug, 2012 [facility] [address] [id number] [address] [place] [address], [place] [address] Aug, [facility] [address] [id number] [address] [place] [address], [place] [address] Aug, [facility] [address] [id number] [address] [place] [address] Jul, [facility] [address] [id number] [address] [place] [address], [place] [address] Jul, [facility] [address] [id number] [address] [place] [address], [place] [address] Jul, [facility] [address] [id number] [address] [place] [address], [place] [address] Jun, [facility] [address] [id number] [address] [place] [address], [place] [address] 27 Jun, 2012 [facility] [address] [id number] [address] [place] [address], [place] [address] 16 Jun, 2012 [facility] [address] [id number] [address] [place] [address], [place] [address] 14 Jun, 2012 [facility] [address] [id number] [address] [place] [address], [place] [address] 11 Jun, 2012 [facility] [address] [id number] [address] [place] [address], [place] [address] 17 Feb, 2012 [facility] [address] [id number] [address] [place] [address], [place] [address] February, [facility] [address] [id number] [address] [place] [address], [place] [address] February, [facility] [address] [id number] [address] [place] [address], [place] [address] 10 Jan, 2012 [facility] [address] [id number] [address] [place] [address], [place] [address] Jan, [facility] [address] [id number] [address] [place] [address], [place] [address] Jan, [facility] [address] [id number] [address] [place] [address], [place] [address] 05 Jan, 2012 [facility] [address] [id number] [address] [place] [address], [place] [address] Jan, [facility] [address] [id number] [address] [place] [address], [place] [address] Dec, [facility] [address] [id number] [address] [place] [address], [place] [address] 12 Dec, 2011 [facility] [address] [id number] [address] [place] [address], [place] [address] 10 Dec, 2011 [facility] [address] [id number] [address] [place] [address], [place] [address] 08 Dec, 2011 [facility] [address] [id number] [address] [place] [address], [place] [address] 29 Nov, 2011 [facility] [address] [id number] [address] [place] [address], [place] [address] 10 Jul, 2011 [facility] [address] [id number] [address] [place] [address], [place] [address] 10 Jul, 2011 [facility] [address] [id number] [address] [place] [address], [place] [address] 20 Mar, 2011 [facility] [address] [id number] [address] [place] [address], [place] [address] Mar, [facility] [address] [id number] [address] [place] [address], [place] [address] 13 Jan, 2011 [facility] [address] [id number] [address] [place] [address], [place] [address] 15 Dec, 2010 [facility] [address] [id number] [address] [place] [address], [place] [address] 29 Sep, 2010 [facility] [address] [id number] [address] [place] [address], [place] [address] Sep, [facility] [address] [id number] [address] [place] [address], [place] [address] Sep, [facility] [address] [id number] [address] [place] [address], [place] [address] Sep, [facility] [address] [id number] [address] [place] [address], [place] [address] 08 Sep, 2010 [facility] [address] [id number] [address] [place] [address], [place] [address] Aug, [facility] [address] [id number] [address] [place] [address], [place] [address] Aug, [facility] [address] [id number] [address] [place] [address], [place] [address] 27 Jul, 2010 [facility] [address] [id number] [address] [place] [address] Jul, [facility] [address] [facility] [id number] [address] [place] [address] Jul, [facility] [address] [facility] [id number] [address] [place] [address] Nov, IMMUNIZATIONS No Known Immunizations SOCIAL HISTORY Never Assessed REASON FOR VISIT PLAN OF CARE VITAL SIGNS MEDICATIONS No Known Medications RESULTS No Results PROCEDURES Procedure Date Ordered Result Body Site URINE TEST Dec 09, 2011 INSTRUCTIONS MEDICATIONS ADMINISTERED No Known Medications MEDICAL (GENERAL) HISTORY Type Description Date Medical History Hypothryoid Surgical History Bilateral Tubal Ligation Surgical History dilatation and curettage Surgical History section x2 Hospitalization History surgeries and childbirth Hospitalization History [facility] Gastritous 01/16/2018
--- OUTSIDE RECORDS SUMMARY | 2020-03-27 13:23 | XMS REPORT ---
Author Author Dominique Bishop Doctor Organization [facility] Address Unknown Phone Unavailable Care Team Providers Care Retail Event Assistant Name Role Phone Migration, Doctor Unavailable Unavailable PROBLEMS Type Condition ICD9-CM Code RUA86-FR Code Onset Dates Condition S tatus SNOMED Code Problem Primary hypothyroidism E03.9 Apr, 0 [id number] ALLERGIES No Information ENCOUNTERS Encounter Location Date Diagnosis [facility] [address] [place] [address] February, Poison brenda dermatitis L23.7 [facility] [address] [place] [address] Jan, Poison brenda dermatitis L23.7 [facility] [address] [place] [address] Jan, Acute bilateral low back pain without sciatica M54.5 and Melasma L81.1 [facility] [address] [place] [address] Oct, Strep pharyngitis J02.0 and Poison brenda dermatitis L23.7 [facility] [address] [id number] [address] [place] [address] Sep, [facility] [address] [id number] [address] [place] [address] February, Acquired hypothyroidism E03. 9 [facility] [address] [id number] [address] [place] [address] Sep, [place] [address] [id number] [address] [place] [address] Jul, Well woman exam Z01.419 and Cervical cancer screening Z12.4 [place] [address] [id number] [address] [place] [address] Jul, Acquired hypothyroidism E03. 9 ; Myalgia M79.1 and Painful menstrual periods N94.6 [facility] [address] [facility] [id number] [address] [place] [address] Jun, Chronic seasonal allergic rh initis due to other allergen J30.2 [facility] [address] [facility] [id number] [address] [place] [address] Mar, Acquired hypothyroidism E03. 9 [facility] [address] [facility] [id number] [address] [place] [address] Jan, Sore throat J02.9 and Strep throat J02.0 [facility] [address] [facility] [id number] [address] [place] [address] Jan, Scabies B86 and Sore throat J02.9 [facility] [address] [facility] [id number] [address] [place] [address] Dec, Acquired hypothyroidism E03. 9 [facility] [id number] [place] [address] Dec, Acquired hypothyroidism E03. 9 [facility] [id number] [place] [address] Aug, Acquired hypothyroidism E03. 9 [place] [address] [id number] [place] [address] May, [facility] [address] [address] May, Encounter to establish care Z76.89 ; Alopecia L65.9 ; Fatigue, unspecified type R53.83 ; Left wrist pain M25.532 ; Pain in right knee M25.561 and Pain in left knee M25.562 [place] [address] [id number] [address] [place] [address] Jan, [facility] [id number] [place] [address] Jan, [place] [id number] [address] Apr, [facility] [address] [id number] [address] [place] [address], [place] [address] Apr, [facility] [address] [id number] [address] [place] [address], [place] [address] Apr, [facility] [address] [id number] [address] [place] [address], [place] [address] Apr, [facility] [address] [id number] [address] [place] [address], [place] [address] Dec, [facility] [address] [id number] [address] [place] [address], [place] [address] Dec, [facility] [address] [id number] [address] [place] [address], [place] [address] Nov, [facility] [address] [id number] [address] [place] [address], [place] [address] Nov, [facility] [address] [id number] [address] [place] [address], [place] [address] Nov, [facility] [address] [id number] [address] [place] [address], [place] [address] Nov, [facility] [address] [id number] [address] [place] [address], [place] [address] Apr, [facility] [address] [id number] [address] [place] [address], [place] [address] February, [facility] [address] [id number] [address] [place] [address], [place] [address] Jan, [facility] [address] [id number] [address] [place] [address], [place] [address] Jan, [facility] [address] [id number] [address] [place] [address], [place] [address] Jan, [facility] [address] [id number] [address] [place] [address], [place] [address] Jan, [facility] [address] [id number] [address] [place] [address], [place] [address] 17 Jan, 2013 [facility] [address] [id number] [address] [place] [address], [place] [address] 16 Jan, 2013 [facility] [address] [id number] [address] [place] [address], [place] [address] 15 Jan, 2013 [facility] [address] [id number] [address] [place] [address], [place] [address] 01 Jan, 2013 [facility] [address] [id number] [address] [place] [address], [place] [address] 18 Dec, 2012 [facility] [address] [id number] [address] [place] [address], [place] [address] 06 Dec, 2012 [facility] [address] [id number] [address] [place] [address], [place] [address] 04 Dec, 2012 [facility] [address] [id number] [address] [place] [address], [place] [address] 20 Nov, 2012 [facility] [address] [id number] [address] [place] [address], [place] [address] 07 Nov, 2012 [facility] [address] [id number] [address] [place] [address], [place] [address] 07 Nov, 2012 [facility] [address] [id number] [address] [place] [address], [place] [address] 06 Nov, 2012 [facility] [address] [id number] [address] [place] [address], [place] [address] 09 Oct, 2012 [facility] [address] [id number] [address] [place] [address], [place] [address] 18 Sep, 2012 [facility] [address] [id number] [address] [place] [address], [place] [address] 18 Sep, 2012 [facility] [address] [id number] [address] [place] [address], [place] [address] 17 Sep, 2012 [facility] [address] [id number] [address] [place] [address], [place] [address] 16 Sep, 2012 [facility] [address] [id number] [address] [place] [address], [place] [address] 13 Sep, 2012 [facility] [address] [id number] [address] [place] [address], [place] [address] 12 Sep, 2012 [facility] [address] [id number] [address] [place] [address], [place] [address] 12 Sep, 2012 [facility] [address] [id number] [address] [place] [address], [place] [address] 14 Aug, 2012 [facility] [address] [id number] [address] [place] [address], [place] [address] 14 Aug, 2012 [facility] [address] [id number] [address] [place] [address], [place] [address] Aug, [facility] [address] [id number] [address] [place] [address], [place] [address] Aug, [facility] [address] [id number] [address] [place] [address], [place] [address] 08 Jul, 2012 [facility] [address] [id number] [address] [place] [address], [place] [address] 02 Jul, 2012 [facility] [address] [id number] [address] [place] [address], [place] [address] Jul, [facility] [address] [id number] [address] [place] [address], [place] [address] 28 Jun, 2012 [facility] [address] [id number] [address] [place] [address], [place] [address] 27 Sep2011 [facility] [address] [id number] [address] [place] [address], [place] [address] 16 Sep2011 [facility] [address] [id number] [address] [place] [address], [place] [address] 14 Jun, 2012 [facility] [address] [id number] [address] [place] [address], [place] [address] 11 Jun, 2012 [facility] [address] [id number] [address] [place] [address], [place] [address] February, [facility] [address] [id number] [address] [place] [address], [place] [address] February, [facility] [address] [id number] [address] [place] [address], [place] [address] February, [facility] [address] [id number] [address] [place] [address], [place] [address] Jan, [facility] [address] [id number] [address] [place] [address], [place] [address] Jan, [facility] [address] [id number] [address] [place] [address], [place] [address] Jan, [facility] [address] [id number] [address] [place] [address], [place] [address] Jan, [facility] [address] [id number] [address] [place] [address], [place] [address] Jan, [facility] [address] [id number] [address] [place] [address], [place] [address] Dec, [facility] [address] [id number] [address] [place] [address], [place] [address] Dec, [facility] [address] [id number] [address] [place] [address], [place] [address] Dec, [facility] [address] [id number] [address] [place] [address], [place] [address] Dec, [facility] [address] [id number] [address] [place] [address], [place] [address] Nov, [facility] [address] [id number] [address] [place] [address], [place] [address] Jul, [facility] [address] [id number] [address] [place] [address], [place] [address] Jul, [facility] [address] [id number] [address] [place] [address], [place] [address] Mar, [facility] [address] [id number] [address] [place] [address] 13 Mar, 2011 [facility] [address] [id number] [address] [place] [address] 13 Jan, 2011 [facility] [address] [id number] [address] [place] [address] 15 Dec, 2010 [facility] [address] [id number] [address] [place] [address] Sep, [facility] [address] [id number] [address] [place] [address] Sep, [facility] [address] [id number] [address] [place] [address] Sep, [facility] [address] [id number] [address] [place] [address] Sep, [facility] [address] [id number] [address] [place] [address] Sep, [facility] [address] [id number] [address] [place] [address] Aug, [facility] [address] [id number] [address] [place] [address] Aug, [facility] [address] [id number] [address] [place] [address] Jul, [facility] [address] [id number] [address] [place] [address] Jul, [facility] [address] [id number] [address] [place] [address] Jul, [facility] [address] [id number] [address] [place] [address] Nov, IMMUNIZATIONS No Known Immunizations SOCIAL HISTORY Never Assessed REASON FOR [place]IT [place] [place] VITAL SIGNS MEDICATIONS Unknown Medications RESULTS No Results PROCEDURES No Known procedures INSTRUCTIONS MEDICATIONS ADMINISTERED No Known Medications MEDICAL (GENERAL) HISTORY Type Description Date Medical History Hypothryoid Surgical History Bilateral Tubal Ligation Surgical History dilatation and curettage Surgical History section x2 Hospitalization History surgeries and childbirth Hospitalization History [facility] Gastritous 01/16/2018
--- OUTSIDE RECORDS SUMMARY | 2020-03-27 13:23 | XMS REPORT ---
Author Author Dominique Torres Organization [facility] Address [address] [place] [address] Care Team Providers Care Stove Tender Name Role Phone JENNI Torres Unavailable PROBLEMS Type Condition ICD9-CM Code [id number] Code Onset Dates Condition S tatus SNOMED Code Problem Primary hypothyroidism E03.9 Apr, 0 [id number] ALLERGIES No Information ENCOUNTERS Encounter Location Date Diagnosis [facility] [address] [facility] [id number] [address] [place] [address] May, Strep throat J02.0 [facility] [address] [id number] [address] [place] [address] Mar, Plantar fasciitis M72.2 [facility] [id number] [place] [phone] February, Poison brenda dermatitis L23.7 [facility] [id number] [place] [address] 2[address] Jan, Poison brenda dermatitis L23.7 [facility] [address] [phone] Jan, Acute bilateral low back pain without sciatica M54.5 and Melasma L81.1 [facility] [id number] [place] [address] Oct, Strep pharyngitis J02.0 and Poison brenda dermatitis L23.7 [facility] [address] [facility] [id number] [address] [place] [address] Sep, [facility] [address] [id number] [address] [place] [address] February, Acquired hypothyroidism E03. 9 [facility] [address] [facility] [id number] [address] [place] [address] Sep, [facility] [address] [id number] [address] [place] [address] Jul, Well woman exam Z01.419 and Cervical cancer screening Z12.4 [facility] [address] [id number] [address] [place] [address] Jul, Acquired hypothyroidism E03. 9 ; Myalgia M79.1 and Painful menstrual periods N94.6 [facility] [address] [id number] [address] [place] [address] Jun, Chronic seasonal allergic rh initis due to other allergen J30.2 [facility] [address] [facility] [id number] [address] [place] [address] Mar, Acquired hypothyroidism E03. 9 [facility] [address] [id number] [address] [place] [address] 14 Jan, 2017 Sore throat J02.9 and Strep throat J02.0 [facility] [address] [id number] [address] [place] [address] 08 Jan, 2017 Scabies B86 and Sore throat J02.9 [facility] [address] [facility] [id number] [address] [place] [address] Dec, Acquired hypothyroidism E03. 9 [facility] [address] [id number] [address] [place] [phone] Dec, Acquired hypothyroidism E03. 9 [place] [id number] [id number] [address] [place] [address] Aug, Acquired hypothyroidism E03. 9 [place] [address] [address] [facility] [id number] [address] [place] [address] May, [facility] [address] [id number] [address] [place] [address] May, Encounter to establish care Z76.89 ; Alopecia L65.9 ; Fatigue, unspecified type R53.83 ; Left wrist pain M25.532 ; Pain in right knee M25.561 and Pain in left knee M25.562 [facility] [address] [id number] [address] [place] [address] Jan, [facility] [address] [id number] [address] [place] [address] Jan, [facility] [address] [id number] [address] [place] [address] Apr, [facility] [address] [id number] [address] [place] [address] Apr, [facility] [address] [id number] [address] [place] [address] Apr, [facility] [address] [id number] [address] [place] [address] Apr, [facility] [address] [id number] [address] [place] [address] Dec, [facility] [address] [id number] [address] [place] [address] Dec, [facility] [address] [id number] [address] [place] [address] Nov, [facility] [address] [id number] [address] [place] [address] Nov, [facility] [address] [id number] [address] [place] [phone] Nov, [facility] [address] [id number] [address] [place] [address] Nov, [facility] [address] [id number] [address] [place] [address] Apr, [facility] [address] [id number] [address] [place] [address] February, [facility] [address] [id number] [address] [place] [address], [place] [address] 25 Jan, 2013 [facility] [address] [id number] [address] [place] [address], [place] [address] 24 Jan, 2013 [facility] [address] [id number] [address] [place] [address], [place] [address] 23 Jan, 2013 [facility] [address] [id number] [address] [place] [address], [place] [address] 19 Jan, 2013 [facility] [address] [id number] [address] [place] [address], [place] [address] 17 Jan, 2013 [facility] [address] [id number] [address] [place] [address], [place] [address] 16 Jan, 2013 [facility] [address] [id number] [address] [place] [address], [place] [address] 15 Jan, 2013 [facility] [address] [id number] [address] [place] [address], [place] [address] Jan, [facility] [address] [id number] [address] [place] [address], [place] [address] 18 Dec, 2012 [facility] [address] [id number] [address] [place] [address], [place] [address] 06 Dec, 2012 [facility] [address] [id number] [address] [place] [address], [place] [address] 04 Dec, 2012 [facility] [address] [id number] [address] [place] [address], [place] [address] 20 Nov, 2012 [facility] [address] [id number] [address] [place] [address], [place] [address] 07 Nov, 2012 [facility] [address] [id number] [address] [place] [address], [place] [address] 07 Nov, 2012 [facility] [address] [id number] [address] [place] [address], [place] [address] 06 Nov, 2012 [facility] [address] [id number] [address] [place] [address], [place] [address] Oct, [facility] [address] [id number] [address] [place] [address], [place] [address] 18 Sep, 2012 [facility] [address] [id number] [address] [place] [address], [place] [address] 18 Sep, 2012 [facility] [address] [id number] [address] [place] [address], [place] [address] 17 Sep, 2012 [facility] [address] [id number] [address] [place] [address], [place] [address] 16 Sep, 2012 [facility] [address] [id number] [address] [place] [address], [place] [address] 13 Sep, 2012 [facility] [address] [id number] [address] [place] [address], [place] [address] 12 Sep, 2012 [facility] [address] [id number] [address] [place] [address], [place] [address] 12 Sep, 2012 [facility] [address] [id number] [address] [place] [address], [place] [address] 14 Aug, 2012 [facility] [address] [id number] [address] [place] [address], [place] [address] 14 Aug, 2012 [facility] [address] [id number] [address] [place] [address], [place] [address] Aug, [facility] [address] [id number] [address] [place] [address], [place] [address] Aug, [facility] [address] [id number] [address] [place] [address], [place] [address] Jul, [facility] [address] [id number] [address] [place] [address], [place] [address] Jul, [facility] [address] [id number] [address] [place] [address], [place] [address] Jul, [facility] [address] [id number] [address] [place] [address], [place] [address] Jun, [facility] [address] [id number] [address] [place] [address] [place] [address] 27 Sep2011 [facility] [address] [id number] [address] [place] [address], [place] [address] 16 Jun, 2012 [facility] [address] [id number] [address] [place] [address], [place] [address] 14 Jun, 2012 [facility] [address] [id number] [address] [place] [address], [place] [address] 11 Jun, 2012 [facility] [address] [id number] [address] [place] [address], [place] [address] 17 Feb, 2012 [facility] [address] [id number] [address] [place] [address], [place] [address] February, [facility] [address] [id number] [address] [place] [address], [place] [address] February, [facility] [address] [id number] [address] [place] [address], [place] [address] 10 Jan, 2012 [facility] [address] [id number] [address] [place] [address], [place] [address] Jan, [facility] [address] [id number] [address] [place] [address], [place] [address] Jan, [facility] [address] [id number] [address] [place] [address], [place] [address] 05 Jan, 2012 [facility] [address] [id number] [address] [place] [address], [place] [address] Jan, [facility] [address] [id number] [address] [place] [address], [place] [address] Dec, [facility] [address] [id number] [address] [place] [address], [place] [address] 12 Dec, 2011 [facility] [address] [id number] [address] [place] [address], [place] [address] 10 Dec, 2011 [facility] [address] [id number] [address] [place] [address], [place] [address] 08 Dec, 2011 [facility] [address] [id number] [address] [place] [address], [place] [address] 29 Nov, 2011 [facility] [address] [id number] [address] [place] [address], [place] [address] 10 Jul, 2011 [facility] [address] [id number] [address] [place] [address], [place] [address] 10 Jul, 2011 [facility] [address] [id number] [address] [place] [address], [place] [address] 20 Mar, 2011 [facility] [address] [id number] [address] [place] [address], [place] [address] 13 Mar, 2011 [facility] [address] [id number] [address] [place] [address], [place] [address] 13 Jan, 2011 [facility] [address] [id number] [address] [place] [address], [place] [address] Dec, [facility] [address] [id number] [address] [place] [address], [place] [address] 29 Sep, 2010 [facility] [address] [id number] [address] [place] [address], [place] [address] Sep, [facility] [address] [id number] [address] [place] [address], [place] [address] 24 Sep, 2010 [facility] [address] [id number] [address] [place] [address], [place] [address] Sep, [facility] [address] [id number] [address] [place] [address], [place] [address] 08 Sep, 2010 [facility] [address] [id number] [address] [place] [address], [place] [address] Aug, [facility] [address] [id number] [address] [place] [address], [place] [address] Aug, [facility] [address] [id number] [address] [place] [address], [place] [address] 27 Jul, 2010 [facility] [address] [id number] [address] [place] [address], [place] [address] Jul, [facility] [address] [facility] [id number] [address] [address] Jul, [facility] [address] [facility] [id number] [address] [place] [phone] Nov, IMMUNIZATIONS No Known Immunizations SOCIAL HISTORY Never Assessed REASON FOR VISIT PLAN OF CARE VITAL SIGNS Height 67 in 2013-04-10 Weight 195.37 lbs 2013-04-10 Temperature 98 degrees Fahrenheit 2013-04-10 Heart Rate 75 bpm 2013-04-10 Respiratory Rate 18 2013-04-10 Blood pressure systolic 120 mmHg 2013-04-10 Blood pressure diastolic 80 mmHg 2013-04-10 MEDICATIONS No Known Medications RESULTS No Results PROCEDURES Procedure Date Ordered Result Body Site URINE TEST April 10, 2013 INSTRUCTIONS MEDICATIONS ADMINISTERED No Known Medications MEDICAL (GENERAL) HISTORY Type Description Date Medical History Hypothryoid Surgical History Bilateral Tubal Ligation Surgical History dilatation and curettage Surgical History section x2 Hospitalization History surgeries and childbirth Hospitalization History [facility] 01/16/2018
--- OUTSIDE RECORDS SUMMARY | 2020-03-27 13:23 | XMS REPORT ---
Author Author Dominique Torres Organization [facility] Address [address] [place] [address] Care Team Providers Care Manual Winder Name Role Phone JENNI Torres Unavailable PROBLEMS Type Condition ICD9-CM Code BHR11-VE Code Onset Dates Condition S tatus SNOMED Code Problem Primary hypothyroidism E03.9 Apr, 0 [id number] ALLERGIES No Information ENCOUNTERS Encounter Location Date Diagnosis [facility] [address] [place] [id number] [address] [place] [address] May, Strep throat J02.0 [facility] [address] [place] [id number] [address] [place] [address] Mar, Plantar fasciitis M72.2 [facility] [address] [place] [address] February, Poison brenda dermatitis L23.7 [facility] [address] [place] [address] Jan, Poison brenda dermatitis L23.7 [facility] [address] [place] [address] Jan, Acute bilateral low back pain without sciatica M54.5 and Melasma L81.1 [facility] [address] [place] [address] Oct, Strep pharyngitis J02.0 and Poison brenda dermatitis L23.7 [facility] [address] [facility] [id number] [address] [place] [address] Sep, [facility] [address] [place] [id number] [address] [place] [address] February, Acquired hypothyroidism E03. 9 [facility] [address] [place] [id number] [address] [place] [address] Sep, [facility] [address] [place] [id number] [address] [place] [address] Jul, Well woman exam Z01.419 and Cervical cancer screening Z12.4 [facility] [address] [address] Jul, Acquired hypothyroidism E03. 9 ; Myalgia M79.1 and Painful menstrual periods N94.6 [facility] [address] [address] Jun, Chronic seasonal allergic rh initis due to other allergen J30.2 [place] [address] [address] Mar, Acquired hypothyroidism E03. 9 [facility] [place] [address] [address] Jan, Sore throat J02.9 and Strep throat J02.0 [facility] [address] [address] Jan, Scabies B86 and Sore throat J02.9 [place] [address] [address] Dec, Acquired hypothyroidism E03. 9 [place] [address] [address] Dec, Acquired hypothyroidism E03. 9 [place] [address] [address] Aug, Acquired hypothyroidism E03. 9 [place] [address] [address] May, [place] [address] [address] May, Encounter to establish care Z76.89 ; Alopecia L65.9 ; Fatigue, unspecified type R53.83 ; Left wrist pain M25.532 ; Pain in right knee M25.561 and Pain in left knee M25.562 [facility] [address] [id number] [address] [place] [address], [place] [address] Jan, [facility] [address] [id number] [address] [place] [address], [place] [address] Jan, [facility] [address] [id number] [address] [place] [address], [place] [address] Apr, [facility] [address] [id number] [address] [place] [address], [place] [address] Apr, [facility] [address] [id number] [address] [place] [address], [place] [address] Apr, [facility] [address] [id number] [address] [place] [address], [place] [address] Apr, [facility] [address] [id number] [address] [place] [address], [place] [address] Dec, [facility] [address] [id number] [address] [place] [address], [place] [address] Dec, [facility] [address] [id number] [address] [place] [address], [place] [address] Nov, [facility] [address] [id number] [address] [place] [address], [place] [address] Nov, [facility] [address] [id number] [address] [place] [address], [place] [address] Nov, [facility] [address] [id number] [address] [place] [address] Nov, [facility] [address] [id number] [address] [place] [address] Apr, [facility] [address] [id number] [address] [place] [address] February, [facility] [address] [id number] [address] [place] [address] Jan, [facility] [address] [id number] [address] [place] [address], [place] [address] 24 Jan, 2013 [facility] [address] [id number] [address] [place] [address], [place] [address] 23 Jan, 2013 [facility] [address] [id number] [address] [place] [address], [place] [address] 19 Jan, 2013 [facility] [address] [id number] [address] [place] [address], [place] [address] 17 Jan, 2013 [facility] [address] [id number] [address] [place] [address], [place] [address] 16 Jan, 2013 [facility] [address] [id number] [address] [place] [address], [place] [address] 15 Jan, 2013 [facility] [address] [id number] [address] [place] [address], [place] [address] Jan, [facility] [address] [id number] [address] [place] [address], [place] [address] Dec, [facility] [address] [id number] [address] [place] [address], [place] [address] Dec, [facility] [address] [id number] [address] [place] [address], [place] [address] Dec, [facility] [address] [id number] [address] [place] [address], [place] [address] Nov, [facility] [address] [id number] [address] [place] [address], [place] [address] Nov, [facility] [address] [id number] [address] [place] [address], [place] [address] Nov, [facility] [address] [id number] [address] [place] [address], [place] [address] 06 Nov, 2012 [facility] [address] [id number] [address] [place] [address], [place] [address] Oct, [facility] [address] [id number] [address] [place] [address], [place] [address] 18 Sep, 2012 [facility] [address] [id number] [address] [place] [address], [place] [address] 18 Sep, 2012 [facility] [address] [id number] [address] [place] [address], [place] [address] 17 Sep, 2012 [facility] [address] [id number] [address] [place] [address], [place] [address] 16 Sep, 2012 [facility] [address] [id number] [address] [place] [address], [place] [address] 13 Sep, 2012 [facility] [address] [id number] [address] [place] [address], [place] [address] 12 Sep, 2012 [facility] [address] [id number] [address] [place] [address], [place] [address] 12 Sep, 2012 [facility] [address] [id number] [address] [place] [address], [place] [address] 14 Aug, 2012 [facility] [address] [id number] [address] [place] [address], [place] [address] 14 Aug, 2012 [facility] [address] [id number] [address] [place] [address], [place] [address] 12 Aug, 2012 [facility] [address] [id number] [address] [place] [address], [place] [address] Aug, [facility] [address] [id number] [address] [place] [address], [place] [address] 08 Jul, 2012 [facility] [address] [id number] [address] [place] [address], [place] [address] 02 Jul, 2012 [facility] [address] [id number] [address] [place] [address], [place] [address] Jul, [facility] [address] [id number] [address] [place] [address], [place] [address] 28 Jun, 2012 [facility] [address] [id number] [address] [place] [address], [place] [address] 27 Jun, 2012 [facility] [address] [id number] [address] [place] [address], [place] [address] 16 Jun, 2012 [facility] [address] [id number] [address] [place] [address], [place] [address] 14 Jun, 2012 [facility] [address] [id number] [address] [place] [address], [place] [address] 11 Jun, 2012 [facility] [address] [id number] [address] [place] [address], [place] [address] February, [facility] [address] [id number] [address] [place] [address], [place] [address] February, [facility] [address] [id number] [address] [place] [address], [place] [address] February, [facility] [address] [id number] [address] [place] [address], [place] [address] Jan, [facility] [address] [id number] [address] [place] [address], [place] [address] Jan, [facility] [address] [id number] [address] [place] [address], [place] [address] Jan, [facility] [address] [id number] [address] [place] [address], [place] [address] Jan, [facility] [address] [id number] [address] [place] [address], [place] [address] Jan, [facility] [address] [id number] [address] [place] [address], [place] [address] Dec, [facility] [address] [id number] [address] [place] [address], [place] [address] Dec, [facility] [address] [id number] [address] [place] [address], [place] [address] Dec, [facility] [address] [id number] [address] [place] [address], [place] [address] 08 Dec, 2011 [facility] [address] [id number] [address] [place] [address], [place] [address] Nov, [facility] [address] [id number] [address] [place] [address], [place] [address] 10 Jul, 2011 [facility] [address] [id number] [address] [place] [address], [place] [address] 10 Jul, 2011 [facility] [address] [id number] [address] [place] [address], [place] [address] 20 Mar, 2011 [facility] [address] [id number] [address] [place] [address], [place] [address] 13 Mar, 2011 [facility] [address] [id number] [address] [place] [address], [place] [address] Jan, [facility] [address] [id number] [address] [place] [address], [place] [address] 15 Dec, 2010 [facility] [address] [id number] [address] [place] [address], [place] [address] 29 Sep, 2010 [facility] [address] [id number] [address] [place] [address], [place] [address] 27 Sep, 2010 [facility] [address] [id number] [address] [place] [address], [place] [address] 24 Sep, 2010 [facility] [address] [id number] [address] [place] [address], [place] [address] Sep, [facility] [address] [id number] [address] [place] [address], [place] [address] Sep, [facility] [address] [id number] [address] [place] [address], [place] [address] Aug, [facility] [address] [id number] [address] [place] [address], [place] [address] Aug, [facility] [address] [id number] [address] [place] [address], [place] [address] 27 Jul, 2010 [facility] [address] [id number] [address] [place] [address], [place] [address] 20 Jul, 2009 [facility] [address] [id number] [address] [place] [address] Jul, [facility] [address] [facility] [id number] [address] [place] [address] Nov, IMMUNIZATIONS No Known Immunizations SOCIAL HISTORY [...] Hospitalization History surgeries and childbirth Hospitalization History [facility] Gastritous 01/16/2018
--- OUTSIDE RECORDS SUMMARY | 2020-03-27 13:23 | XMS REPORT ---
Author Author Dominique Torres Organization [facility] Address [address] [place] [address] Care Team Providers Care Senior Network Administrator Name Role Phone JENNI Torres Unavailable PROBLEMS Type Condition ICD9-CM Code BNP86-DE Code Onset Dates Condition S tatus SNOMED Code Problem Primary hypothyroidism E03.9 Apr, 0 [id number] ALLERGIES No Information ENCOUNTERS Encounter Location Date Diagnosis [facility] [address] [facility] [id number] [address] [place] [address] May, Strep throat J02.0 [facility] [address] [address] Mar, Plantar fasciitis M72.2 [facility] [address] [address] February, Poison brenda dermatitis L23.7 [facility] [address] [address] Jan, Poison brenda dermatitis L23.7 [facility] [address] [address] Jan, Acute bilateral low back pain without sciatica M54.5 and Melasma L81.1 [facility] [address] [address] Oct, Strep pharyngitis J02.0 and Poison brenda dermatitis L23.7 [facility] [address] [address] Sep, [facility] [address] [address] February, Acquired hypothyroidism E03.9 [facility] [address] [address] Sep, [place] [address] [address] Jul, Well woman exam Z01.419 and Cervical can cer screening Z12.4 [place] [address] [address] Jul, Acquired hypothyroidism E03.9 ; Myalgia M79.1 and Painful menstrual periods N94.6 [facility] [address] [address] 27 Jun, 2017 Chronic seasonal allergic rh initis due to other allergen J30.2 [place] [address] [address] 08 Mar, 2017 Acquired hypothyroidism E03.9 [facility] [place] [address] [address] 14 Jan, 2017 Sore throat J02.9 and Strep throat J02.0 [facility] [place] [address] [address] 08 Jan, 2017 Scabies B86 and Sore throat J02.9 [place] [address] [address] Dec, Acquired hypothyroidism E03.9 [place] [address] [address] Dec, Acquired hypothyroidism E03.9 [place] [address] [address] Aug, Acquired hypothyroidism E03.9 [place] [address] [address] May, [place] [address] [address] May, Encounter to establish care Z76.89 ; Gucci pecia L65.9 ; Fatigue, unspecified type R53.83 ; Left wrist pain M25.532 ; Pain in right knee M25.561 and Pain in left knee M25.562 [facility] [address] [id number] [place] [address] Jan, [facility] [address] [id number] [place] [address] Jan, [facility] [address] [id number] [place] [address] Apr, [facility] [address] [id number] [place] [address] Apr, [facility] [address] [id number] [place] [address] Apr, [facility] [address] [id number] [place] [address] Apr, [facility] [address] [id number] [place] [address] Dec, [facility] [address] [id number] [place] [address] Dec, [facility] [address] [id number] [place] [address] Nov, [facility] [address] [id number] [place] [address] Nov, [facility] [address] [id number] [place] [address] Nov, [facility] [address] [id number] [place] [address] Nov, [facility] [address] [id number] [place] [address] Apr, [facility] [address] [id number] [place] [address] February, [facility] [address] [id number] [place] [address] Jan, [facility] [address] [id number] [place] [address] Jan, [facility] [address] [id number] [place] [address] 23 Jan, 2013 [facility] [address] [id number] [place] [address] 19 Jan, 2013 [facility] [address] [id number] [place] [address] 17 Jan, 2013 [facility] [address] [id number] [place] [address] 16 Jan, 2013 [facility] [address] [id number] [place] [address] 15 Jan, 2013 [facility] [address] [id number] [place] [address] Jan, [facility] [address] [id number] [place] [address] 18 Dec, 2012 [facility] [address] [id number] [place] [address] 06 Dec, 2012 [facility] [address] [id number] [place] [address] 04 Dec, 2012 [facility] [address] [id number] [place] [address] 20 Nov, 2012 [facility] [address] [id number] [place] [address] 07 Nov, 2012 [facility] [address] [id number] [place] [address] 07 Nov, 2012 [facility] [address] [id number] [place] [address] 06 Nov, 2012 [facility] [address] [id number] [place] [address] Oct, [facility] [address] [id number] [place] [address] Sep, [facility] [address] [id number] [place] [address] Sep, [facility] [address] [id number] [place] [address] 17 Sep, 2012 [facility] [address] [id number] [place] [address] 16 Sep, 2012 [facility] [address] [id number] [place] [address] 13 Sep, 2012 [facility] [address] [id number] [place] [address] 12 Sep, 2012 [facility] [address] [id number] [place] [address] Sep, [facility] [address] [id number] [place] [address] 14 Aug, 2012 [facility] [address] [id number] [place] [address] 14 Aug, 2012 [facility] [address] [id number] [place] [address] Aug, [facility] [address] [id number] [place] [address] Aug, [facility] [address] [id number] [place] [address] 08 Jul, 2012 [facility] [address] [id number] [place] [address] 02 Jul, 2012 [facility] [address] [id number] [place] [address] Jul, [facility] [address] [id number] [place] [address] 28 Jun, 2012 [facility] [address] [id number] [place] [address] 27 Sep, 2011 [facility] [address] [id number] [place] [address] 16 Sep2011 [facility] [address] [id number] [place] [address] 14 Sep2011 [facility] [address] [id number] [place] [address] 11 Sep2011 [facility] [address] [id number] [place] [address] February, [facility] [address] [id number] [place] [address] February, [facility] [address] [id number] [place] [address] February, [facility] [address] [id number] [place] [address] Jan, [facility] [address] [id number] [place] [address] Jan, [facility] [address] [id number] [place] [address] Jan, [facility] [address] [id number] [place] [address] Jan, [facility] [address] [id number] [place] [address] Jan, [facility] [address] [id number] [place] [address] Dec, [facility] [address] [id number] [place] [address] Dec, [facility] [address] [id number] [place] [address] Dec, [facility] [address] [id number] [place] [address] Dec, [facility] [address] [id number] [place] [address] Nov, [facility] [address] [id number] [place] [address] Jul, [facility] [id number] [place] [address] Jul, [facility] [address] [id number] [place] [address] Mar, [facility] [address] [id number] [place] [address] Mar, [facility] [address] [id number] [place] [address] 13 Jan, 2011 [facility] [id number] [place] [address] 15 Dec, 2010 [facility] [id number] [place] [address] 29 Sep, 2010 [facility] [id number] [place] [address] Sep, [facility] [id number] [place] [address] Sep, [facility] [address] [address] Sep, [facility] [id number] [place] [address] Sep, [facility] [address] [address] Aug, [facility] [id number] [place] [address] Aug, [facility] [id number] [place] [address] Jul, [facility] [id number] [place] [address] Jul, [facility] [id number] [place] [address] Jul, [facility] [id number] [place] [address] Nov, IMMUNIZATIONS No Known Immunizations SOCIAL HISTORY Never Assessed REASON FOR VISIT PLAN OF CARE VITAL SIGNS Height 67 in 2013-12-06 Weight 189.12 lbs 2013-12-06 Temperature 97.8 degrees Fahrenheit 2013-12-06 Heart Rate 80 bpm 2013-12-06 Respiratory Rate 18 2013-12-06 Blood pressure systolic 112 mmHg 2013-12-06 Blood pressure diastolic 78 mmHg 2013-12-06 MEDICATIONS No Known Medications RESULTS No Results PROCEDURES Procedure Date Ordered Result Body Site CHYLMD TRACH, DNA, AMP PROBE Dec 06, 2013 ASSAY THYROID STIM HORMONE Dec 06, 2013 VENIPUNCT, ROUTINE* Dec 06, 2013 INSTRUCTIONS MEDICATIONS ADMINISTERED No Known Medications MEDICAL (GENERAL) HISTORY Type Description Date Medical History Hypothryoid Surgical History Bilateral Tubal Ligation Surgical History dilatation and curettage Surgical History section x2 Hospitalization History surgeries and childbirth Hospitalization History [facility] Gastritous 01/16/2018
--- OUTSIDE RECORDS SUMMARY | 2020-03-27 13:24 | XMS REPORT ---
Author Author Dominique Bishop Doctor Organization [facility] Address Unknown Phone Unavailable Care Team Providers Care Chemic Mangler Name Role Phone Migration, Doctor Unavailable Unavailable PROBLEMS Type Condition ICD9-CM Code [id number] Code Onset Dates Condition S tatus SNOMED Code Problem Acquired hypothyroidism E03.9 Active 255364425 Problem Painful menstrual periods N94.6 Acti ve 069859414 Problem Primary hypothyroidism 244.9 Apr, 0 390425715 Problem Primary hypothyroidism E03.9 Apr, 0 [id number] ALLERGIES No Information ENCOUNTERS Encounter Location Date Diagnosis [facility] [address] [place] [address] Oct, Strep pharyngitis J02.0 and Poison brenda dermatitis L23.7 [facility] [address] [id number] [address] [place] [address] Sep, [facility] [address] [id number] [address] [place] [address] February, Acquired hypothyroidism E03. 9 [facility] [address] [id number] [address] [place] [address] Sep, [facility] [address] [id number] [address] [place] [address] Jul, Well woman exam Z01.419 and Cervical cancer screening Z12.4 [facility] [address] [id number] [address] [place] [phone] Jul, Acquired hypothyroidism E03. 9 ; Myalgia M79.1 and Painful menstrual periods N94.6 [facility] [address] [id number] [address] [place] [phone] Jun, Chronic seasonal allergic rh initis due to other allergen J30.2 [facility] [address] [id number] [address] [place] [id number] Mar, Acquired hypothyroidism E03. 9 [facility] [address] [facility] [id number] [address] [place] [phone] Jan, Sore throat J02.9 and Strep throat J02.0 [facility] [address] [facility] [id number] [address] [place] [phone] Jan, Scabies B86 and Sore throat J02.9 [facility] [address] [facility] [id number] [address] [place] [phone] Dec, Acquired hypothyroidism E03. 9 [facility] [address] [facility] [id number] [address] [place] [phone] Dec, Acquired hypothyroidism E03. 9 [facility] [address] [facility] [id number] [address] [place] [id number] Aug, Acquired hypothyroidism E03. 9 [facility] [address] [facility] [id number] [address] [place] [id number] May, [facility] [address] [facility] [id number] [address] [place] [id number] May, Encounter to establish care Z76.89 ; Alopecia L65.9 ; Fatigue, unspecified type R53.83 ; Left wrist pain M25.532 ; Pain in right knee M25.561 and Pain in left knee M25.562 [facility] [address] [facility] [id number] [address] [place] [phone] Jan, [facility] [address] [facility] [id number] [address] [place] [id number] Jan, [facility] [address] [id number] [address] [place] [phone] Apr, [facility] [address] [facility] [id number] [address] [place] [phone] Apr, [facility] [address] [id number] [address] [place] [phone] Apr, [facility] [address] [id number] [address] [place] [address], [place] [address] Apr, [facility] [address] [id number] [address] [place] [address], [place] [address] Dec, [facility] [address] [id number] [address] [place] [address], [place] [address] Dec, [facility] [address] [id number] [address] [place] [address], [place] [address] Nov, [facility] [address] [id number] [address] [place] [address], [place] [address] Nov, [facility] [address] [id number] [address] [place] [address], [place] [address] Nov, [facility] [address] [id number] [address] [place] [address], [place] [address] Nov, [facility] [address] [id number] [address] [place] [address], [place] [address] Apr, [facility] [address] [id number] [address] [place] [address], [place] [address] February, [facility] [address] [id number] [address] [place] [address], [place] [address] Jan, [facility] [address] [id number] [address] [place] [address], [place] [address] Jan, [facility] [address] [id number] [address] [place] [address], [place] [address] Jan, [facility] [address] [id number] [address] [place] [address], [place] [address] Jan, [facility] [address] [id number] [address] [place] [address], [place] [address] 17 Jan, 2013 [facility] [address] [id number] [address] [place] [address], [place] [address] 16 Jan, 2013 [facility] [address] [id number] [address] [place] [address], [place] [address] 15 Jan, 2013 [facility] [address] [id number] [address] [place] [address], [place] [address] Jan, [facility] [address] [id number] [address] [place] [address], [place] [address] 18 Dec, 2012 [facility] [address] [id number] [address] [place] [address], [place] [address] 06 Dec, 2012 [facility] [address] [id number] [address] [place] [address], [place] [address] 04 Dec, 2012 [facility] [address] [id number] [address] [place] [address], [place] [id number] 20 Nov, 2012 [facility] [address] [id number] [address] [place] [address], [place] [address] 07 Nov, 2012 [facility] [address] [id number] [address] [place] [address], [place] [address] 07 Nov, 2012 [facility] [address] [id number] [address] [place] [address], [place] [address] 06 Nov, 2012 [facility] [address] [id number] [address] [place] [address], [place] [address] Oct, [facility] [address] [id number] [address] [place] [address], [place] [address] 18 Sep, 2012 [facility] [address] [id number] [address] [place] [address], [place] [address] 18 Sep, 2012 [facility] [address] [id number] [address] [place] [address], [place] [address] 17 Sep, 2012 [facility] [address] [id number] [address] [place] [address], [place] [address] 16 Sep, 2012 [facility] [address] [id number] [address] [place] [address], [place] [address] 13 Sep, 2012 [facility] [address] [id number] [address] [place] [address], [place] [address] 12 Sep, 2012 [facility] [address] [id number] [address] [place] [address], [place] [address] Sep, [facility] [address] [id number] [address] [place] [address], [place] [address] Aug, [facility] [address] [id number] [address] [place] [address], [place] [address] Aug, [facility] [address] [id number] [address] [place] [address], [place] [address] Aug, [facility] [address] [id number] [address] [place] [address], [place] [address] Aug, [facility] [address] [id number] [address] [place] [address], [place] [address] Jul, [facility] [address] [id number] [address] [place] [address], [place] [address] Jul, [facility] [address] [id number] [address] [place] [address], [place] [address] Jul, [facility] [address] [id number] [address] [place] [address], [place] [address] 28 Jun, 2012 [facility] [address] [id number] [address] [place] [address], [place] [address] 27 Jun, 2012 [facility] [address] [id number] [address] [place] [address], [place] [id number] 16 Jun, 2012 [facility] [address] [id number] [address] [place] [address], [place] [address] 14 Jun, 2012 [facility] [address] [id number] [address] [place] [address], [place] [address] 11 Jun, 2012 [facility] [address] [id number] [address] [place] [address], [place] [address] February, [facility] [address] [id number] [address] [place] [address], [place] [address] February, [facility] [address] [id number] [address] [place] [address], [place] [address] February, [facility] [address] [id number] [address] [place] [address], [place] [address] Jan, [facility] [address] [id number] [address] [place] [address], [place] [address] Jan, [facility] [address] [id number] [address] [place] [address], [place] [address] Jan, [facility] [address] [id number] [address] [place] [address], [place] [address] Jan, [facility] [address] [id number] [address] [place] [address], [place] [address] Jan, [facility] [address] [id number] [address] [place] [address], [place] [address] Dec, [facility] [address] [id number] [address] [place] [address], [place] [address] Dec, [facility] [address] [id number] [address] [place] [address], [place] [address] Dec, [facility] [address] [id number] [address] [place] [address], [place] [address] Dec, [facility] [address] [id number] [address] [place] [address], [place] [address] Nov, [facility] [address] [id number] [address] [place] [address], [place] [address] Jul, [facility] [address] [id number] [address] [place] [address], [place] [address] Jul, [facility] [address] [id number] [address] [place] [address], [place] [address] Mar, [facility] [address] [id number] [address] [place] [address], [place] [address] Mar, [facility] [address] [id number] [address] [place] [address], [place] [address] Jan, [facility] [address] [id number] [address] [place] [address] 15 Dec, 2010 [facility] [address] [id number] [address] [place] [id number] Sep, [facility] [address] [id number] [address] [place] [address] Sep, [facility] [address] [id number] [address] [place] [id number] Sep, [facility] [address] [id number] [address] [place] [id number] Sep, [facility] [address] [id number] [address] [place] [id number] Sep, [facility] [address] [id number] [address] [place] [id number] Aug, [facility] [address] [id number] [address] [place] [address] Aug, [facility] [address] [id number] [address] [place] [phone] Jul, [facility] [address] [id number] [address] [place] [id number] Jul, [facility] [address] [id number] [address] [place] [id number] Jul, [facility] [address] [id number] [address] [place] [id number] Nov, IMMUNIZATIONS No Known Immunizations SOCIAL HISTORY Never Assessed REASON FOR VISIT EMR-[facility] [place] PLAN OF CARE VITAL SIGNS MEDICATIONS No Known Medications RESULTS No Results PROCEDURES No Known procedures INSTRUCTIONS MEDICATIONS ADMINISTERED No Known Medications MEDICAL (GENERAL) HISTORY Type Description Date Medical History Hypothryoid Surgical History Bilateral Tubal Ligation Surgical History dilatation and curettage Surgical History section x2 Hospitalization History surgeries and childbirth Hospitalization History [facility] Gastritous 01/16/2018
--- OUTSIDE RECORDS SUMMARY | 2020-03-27 13:24 | XMS REPORT ---
Author Author Dominique Bishop Doctor Organization [facility] Address Unknown Phone Unavailable Care Team Providers Care Tanning Consultant Name Role Phone Migration, Doctor Unavailable Unavailable PROBLEMS Type Condition ICD9-CM Code IHB60-PS Code Onset Dates Condition S tatus SNOMED Code Problem Acquired hypothyroidism E03.9 Active 928532823 Problem Painful menstrual periods N94.6 Acti ve 239206719 Problem Primary hypothyroidism 244.9 Apr, 0 [id number] Problem Primary hypothyroidism E03.9 Apr, 0 [id number] ALLERGIES No Information ENCOUNTERS Encounter Location Date Diagnosis [facility] [address] [place] [address] Oct, Strep pharyngitis J02.0 and Poison brenda dermatitis L23.7 [facility] [address] [id number] [address] [place] [id number] Sep, [facility] [address] [id number] [address] [place] [phone] February, Acquired hypothyroidism E03. 9 [facility] [address] [id number] [address] [place] [phone] Sep, [facility] [address] [id number] [address] [place] [phone] Jul, Well woman exam Z01.419 and Cervical cancer screening Z12.4 [facility] [address] [id number] [address] [place] [id number] Jul, Acquired hypothyroidism E03. 9 ; Myalgia M79.1 and Painful menstrual periods N94.6 [facility] [address] [id number] [address] [place] [phone] Jun, Chronic seasonal allergic rh initis due to other allergen J30.2 [facility] [address] [id number] [address] [place] [id number] Mar, Acquired hypothyroidism E03. 9 [facility] [address] [facility] [id number] [address] [place] [phone] Jan, Sore throat J02.9 and Strep throat J02.0 [facility] [address] [facility] [id number] [address] [place] [phone] Jan, Scabies B86 and Sore throat J02.9 [facility] [address] [facility] [id number] [address] [place] [phone] Dec, Acquired hypothyroidism E03. 9 [facility] [address] [facility] [id number] [address] [place] [phone] Dec, Acquired hypothyroidism E03. 9 [facility] [address] [facility] [id number] [address] [place] [id number] Aug, Acquired hypothyroidism E03. 9 [facility] [address] [facility] [id number] [address] [place] [phone] May, [facility] [address] [facility] [id number] [address] [place] [phone] May, Encounter to establish care Z76.89 ; Alopecia L65.9 ; Fatigue, unspecified type R53.83 ; Left wrist pain M25.532 ; Pain in right knee M25.561 and Pain in left knee M25.562 [facility] [address] [facility] [id number] [address] [place] [phone] Jan, [facility] [address] [facility] [id number] [address] [place] [phone] Jan, [facility] [address] [id number] [address] [place] [id number] Apr, [facility] [address] [facility] [id number] [address] [place] [phone] Apr, [facility] [address] [id number] [address] [place] [phone] Apr, [facility] [address] [id number] [address] [place] [address], [place] [address] Apr, [facility] [address] [id number] [address] [place] [address], [place] [address] Dec, [facility] [address] [id number] [address] [place] [address], [place] [address] Dec, [facility] [address] [id number] [address] [place] [address], [place] [address] Nov, [facility] [address] [id number] [address] [place] [address], [place] [address] Nov, [facility] [address] [id number] [address] [place] [address], [place] [address] Nov, [facility] [address] [id number] [address] [place] [address], [place] [address] Nov, [facility] [address] [id number] [address] [place] [address], [place] [address] Apr, [facility] [address] [id number] [address] [place] [address], [place] [address] February, [facility] [address] [id number] [address] [place] [address], [place] [address] Jan, [facility] [address] [id number] [address] [place] [address], [place] [address] Jan, [facility] [address] [id number] [address] [place] [address], [place] [address] Jan, [facility] [address] [id number] [address] [place] [address], [place] [address] Jan, [facility] [address] [id number] [address] [place] [address], [place] [address] 17 Jan, 2013 [facility] [address] [id number] [address] [place] [address], [place] [address] 16 Jan, 2013 [facility] [address] [id number] [address] [place] [address], [place] [address] 15 Jan, 2013 [facility] [address] [id number] [address] [place] [address], [place] [address] Jan, [facility] [address] [id number] [address] [place] [address], [place] [address] 18 Dec, 2012 [facility] [address] [id number] [address] [place] [address], [place] [address] 06 Dec, 2012 [facility] [address] [id number] [address] [place] [address], [place] [address] 04 Dec, 2012 [facility] [address] [id number] [address] [place] [address], [place] [address] 20 Nov, 2012 [facility] [address] [id number] [address] [place] [address], [place] [address] 07 Nov, 2012 [facility] [address] [id number] [address] [place] [address], [place] [address] 07 Nov, 2012 [facility] [address] [id number] [address] [place] [address], [place] [address] 06 Nov, 2012 [facility] [address] [id number] [address] [place] [address], [place] [address] Oct, [facility] [address] [id number] [address] [place] [address], [place] [address] 18 Sep, 2012 [facility] [address] [id number] [address] [place] [address], [place] [address] 18 Sep, 2012 [facility] [address] [id number] [address] [place] [address], [place] [address] 17 Sep, 2012 [facility] [address] [id number] [address] [place] [address], [place] [address] 16 Sep, 2012 [facility] [address] [id number] [address] [place] [address], [place] [address] 13 Sep, 2012 [facility] [address] [id number] [address] [place] [address], [place] [address] 12 Sep, 2012 [facility] [address] [id number] [address] [place] [address], [place] [address] Sep, [facility] [address] [id number] [address] [place] [address], [place] [address] Aug, [facility] [address] [id number] [address] [place] [address], [place] [address] Aug, [facility] [address] [id number] [address] [place] [address], [place] [address] Aug, [facility] [address] [id number] [address] [place] [address], [place] [address] Aug, [facility] [address] [id number] [address] [place] [address], [place] [address] Jul, [facility] [address] [id number] [address] [place] [address], [place] [address] Jul, [facility] [address] [id number] [address] [place] [address], [place] [address] Jul, [facility] [address] [id number] [address] [place] [address], [place] [address] 28 Jun, 2012 [facility] [address] [id number] [address] [place] [address], [place] [address] 27 Jun, 2012 [facility] [address] [id number] [address] [place] [address], [place] [address] 16 Jun, 2012 [facility] [address] [id number] [address] [place] [address], [place] [address] 14 Jun, 2012 [facility] [address] [id number] [address] [place] [address], [place] [address] 11 Jun, 2012 [facility] [address] [id number] [address] [place] [address], [place] [address] February, [facility] [address] [id number] [address] [place] [address], [place] [address] February, [facility] [address] [id number] [address] [place] [address], [place] [address] February, [facility] [address] [id number] [address] [place] [address], [place] [address] Jan, [facility] [address] [id number] [address] [place] [address], [place] [address] Jan, [facility] [address] [id number] [address] [place] [address], [place] [address] Jan, [facility] [address] [id number] [address] [place] [address], [place] [address] Jan, [facility] [address] [id number] [address] [place] [address], [place] [address] Jan, [facility] [address] [id number] [address] [place] [address], [place] [address] Dec, [facility] [address] [id number] [address] [place] [address], [place] [address] Dec, [facility] [address] [id number] [address] [place] [address], [place] [address] Dec, [facility] [address] [id number] [address] [place] [address], [place] [address] Dec, [facility] [address] [id number] [address] [place] [address], [place] [address] Nov, [facility] [address] [id number] [address] [place] [address], [place] [address] Jul, [facility] [address] [id number] [address] [place] [address], [place] [address] Jul, [facility] [address] [id number] [address] [place] [address], [place] [address] Mar, [facility] [address] [id number] [address] [place] [address], [place] [address] Mar, [facility] [address] [id number] [address] [place] [address], [place] [address] Jan, [facility] [address] [id number] [address] [place] [id number] 15 Dec, 2010 [facility] [address] [id number] [address] [place] [id number] Sep, [facility] [address] [id number] [address] [place] [id number] Sep, [facility] [address] [id number] [address] [place] [id number] Sep, [facility] [address] [id number] [address] [place] [id number] Sep, [facility] [address] [id number] [address] [place] [id number] Sep, [facility] [address] [id number] [address] [place] [phone] Aug, [facility] [address] [id number] [address] [place] [phone] Aug, [facility] [address] [id number] [address] [place] [id number] Jul, [facility] [address] [id number] [address] [place] [id number] Jul, [facility] [address] [id number] [address] [place] [id number] Jul, [facility] [address] [id number] [address] [place] [phone] Nov, IMMUNIZATIONS No Known Immunizations SOCIAL HISTORY Never Assessed REASON FOR VISIT EMR-[facility] PLAN OF CARE VITAL SIGNS MEDICATIONS No Known Medications RESULTS No Results PROCEDURES No Known procedures INSTRUCTIONS MEDICATIONS ADMINISTERED No Known Medications MEDICAL (GENERAL) HISTORY Type Description Date Medical History Hypothryoid Surgical History Bilateral Tubal Ligation Surgical History dilatation and curettage Surgical History section x2 Hospitalization History surgeries and childbirth Hospitalization History [facility] Gastritous 01/16/2018
--- OUTSIDE RECORDS SUMMARY | 2020-03-27 13:24 | XMS REPORT ---
Author Author Dominique Bishop Doctor Organization [facility] Address Unknown Phone Unavailable Care Team Providers Care Channel Sales Director Name Role Phone Migration, Doctor Unavailable Unavailable PROBLEMS Type Condition ICD9-CM Code [id number] Code Onset Dates Condition S tatus SNOMED Code Problem Acquired hypothyroidism E03.9 Active 270387400 Problem Painful menstrual periods N94.6 Acti ve 642092363 Problem Primary hypothyroidism 244.9 Apr, 0 [id number] Problem Primary hypothyroidism E03.9 Apr, 0 [id number] ALLERGIES No Information ENCOUNTERS Encounter Location Date Diagnosis [facility] [address] [place] [address] Oct, Strep pharyngitis J02.0 and Poison brenda dermatitis L23.7 [facility] [address] [id number] [address] [place] [address] Sep, [facility] [address] [id number] [address] [place] [address] February, Acquired hypothyroidism E03. 9 [facility] [address] [id number] [address] [place] [address] Sep, [facility] [address] [id number] [address] [place] [address] Jul, Well woman exam Z01.419 and Cervical cancer screening Z12.4 [facility] [address] [id number] [address] [place] [address] Jul, Acquired hypothyroidism E03. 9 ; Myalgia M79.1 and Painful menstrual periods N94.6 [facility] [address] [id number] [address] [place] [address] Jun, Chronic seasonal allergic rh initis due to other allergen J30.2 [facility] [address] [id number] [address] [place] [address] Mar, Acquired hypothyroidism E03. 9 [facility] [address] [facility] [id number] [address] [place] [address] Jan, Sore throat J02.9 and Strep throat J02.0 [facility] [address] [facility] [id number] [address] [place] [address] Jan, Scabies B86 and Sore throat J02.9 [facility] [address] [facility] [id number] [address] [place] [address] Dec, Acquired hypothyroidism E03. 9 [facility] [address] [facility] [id number] [address] [place] [address] Dec, Acquired hypothyroidism E03. 9 [facility] [address] [facility] [id number] [address] [place] [address] Aug, Acquired hypothyroidism E03. 9 [facility] [address] [facility] [id number] [address] [place] [address] May, [facility] [address] [facility] [id number] [address] [place] [address] May, Encounter to establish care Z76.89 ; Alopecia L65.9 ; Fatigue, unspecified type R53.83 ; Left wrist pain M25.532 ; Pain in right knee M25.561 and Pain in left knee M25.562 [facility] [address] [facility] [id number] [address] [place] [address] Jan, [facility] [address] [facility] [id number] [address] [place] [id number] Jan, [facility] [address] [id number] [address] [place] [address] Apr, [facility] [address] [facility] [id number] [address] [place] [address] Apr, [facility] [address] [id number] [address] [place] [phone] Apr, [facility] [address] [id number] [address] [place] [address], [place] [address] Apr, [facility] [address] [id number] [address] [place] [address], [place] [address] Dec, [facility] [address] [id number] [address] [place] [address], [place] [address] Dec, [facility] [address] [id number] [address] [place] [address], [place] [address] Nov, [facility] [address] [id number] [address] [place] [address], [place] [address] Nov, [facility] [address] [id number] [address] [place] [address], [place] [address] Nov, [facility] [address] [id number] [address] [place] [address], [place] [address] Nov, [facility] [address] [id number] [address] [place] [address], [place] [address] Apr, [facility] [address] [id number] [address] [place] [address], [place] [address] February, [facility] [address] [id number] [address] [place] [address], [place] [address] Jan, [facility] [address] [id number] [address] [place] [address], [place] [address] Jan, [facility] [address] [id number] [address] [place] [address], [place] [address] Jan, [facility] [address] [id number] [address] [place] [address], [place] [address] Jan, [facility] [address] [id number] [address] [place] [address], [place] [address] 17 Jan, 2013 [facility] [address] [id number] [address] [place] [address], [place] [address] 16 Jan, 2013 [facility] [address] [id number] [address] [place] [address], [place] [address] 15 Jan, 2013 [facility] [address] [id number] [address] [place] [address], [place] [address] Jan, [facility] [address] [id number] [address] [place] [address], [place] [address] 18 Dec, 2012 [facility] [address] [id number] [address] [place] [address], [place] [address] 06 Dec, 2012 [facility] [address] [id number] [address] [place] [address], [place] [address] 04 Dec, 2012 [facility] [address] [id number] [address] [place] [address], [place] [address] 20 Nov, 2012 [facility] [address] [id number] [address] [place] [address], [place] [address] 07 Nov, 2012 [facility] [address] [id number] [address] [place] [address], [place] [address] 07 Nov, 2012 [facility] [address] [id number] [address] [place] [address], [place] [address] 06 Nov, 2012 [facility] [address] [id number] [address] [place] [address], [place] [address] Oct, [facility] [address] [id number] [address] [place] [address], [place] [address] 18 Sep, 2012 [facility] [address] [id number] [address] [place] [address], [place] [address] 18 Sep, 2012 [facility] [address] [id number] [address] [place] [address], [place] [address] 17 Sep, 2012 [facility] [address] [id number] [address] [place] [address], [place] [address] 16 Sep, 2012 [facility] [address] [id number] [address] [place] [address], [place] [address] 13 Sep, 2012 [facility] [address] [id number] [address] [place] [address], [place] [address] 12 Sep, 2012 [facility] [address] [id number] [address] [place] [address], [place] [address] Sep, [facility] [address] [id number] [address] [place] [address], [place] [address] Aug, [facility] [address] [id number] [address] [place] [address], [place] [address] Aug, [facility] [address] [id number] [address] [place] [address], [place] [address] Aug, [facility] [address] [id number] [address] [place] [address], [place] [address] Aug, [facility] [address] [id number] [address] [place] [address], [place] [address] Jul, [facility] [address] [id number] [address] [place] [address], [place] [address] Jul, [facility] [address] [id number] [address] [place] [address], [place] [address] Jul, [facility] [address] [id number] [address] [place] [address], [place] [address] 28 Jun, 2012 [facility] [address] [id number] [address] [place] [address], [place] [address] 27 Jun, 2012 [facility] [address] [id number] [address] [place] [address], [place] [address] 16 Jun, 2012 [facility] [address] [id number] [address] [place] [address], [place] [address] 14 Jun, 2012 [facility] [address] [id number] [address] [place] [address], [place] [address] 11 Jun, 2012 [facility] [address] [id number] [address] [place] [address], [place] [address] February, [facility] [address] [id number] [address] [place] [address], [place] [address] February, [facility] [address] [id number] [address] [place] [address], [place] [address] February, [facility] [address] [id number] [address] [place] [address], [place] [address] Jan, [facility] [address] [id number] [address] [place] [address], [place] [address] Jan, [facility] [address] [id number] [address] [place] [address], [place] [address] Jan, [facility] [address] [id number] [address] [place] [address], [place] [address] Jan, [facility] [address] [id number] [address] [place] [address], [place] [address] Jan, [facility] [address] [id number] [address] [place] [address], [place] [address] Dec, [facility] [address] [id number] [address] [place] [address], [place] [address] Dec, [facility] [address] [id number] [address] [place] [address], [place] [address] Dec, [facility] [address] [id number] [address] [place] [address], [place] [address] Dec, [facility] [address] [id number] [address] [place] [address], [place] [address] Nov, [facility] [address] [id number] [address] [place] [address], [place] [address] Jul, [facility] [address] [id number] [address] [place] [address], [place] [address] Jul, [facility] [address] [id number] [address] [place] [address], [place] [address] Mar, [facility] [address] [id number] [address] [place] [address], [place] [address] Mar, [facility] [address] [id number] [address] [place] [address], [place] [address] Jan, [facility] [address] [id number] [address] [place] [address] 15 Dec, 2010 [facility] [address] [id number] [address] [place] [address] Sep, [facility] [address] [id number] [address] [place] [address] Sep, [facility] [address] [id number] [address] [place] [address] Sep, [facility] [address] [id number] [address] [place] [address] Sep, [facility] [address] [id number] [address] [place] [address] Sep, [facility] [address] [id number] [address] [place] [address] Aug, [facility] [address] [id number] [address] [place] [address] Aug, [facility] [address] [id number] [address] [place] [address] Jul, [facility] [address] [id number] [address] [place] [address] Jul, [facility] [address] [id number] [address] [place] [address] Jul, [facility] [address] [id number] [address] [place] [address] Nov, IMMUNIZATIONS No Known Immunizations SOCIAL HISTORY Never Assessed [place]ASON FOR [place]IT [place] [place] VITAL SIGNS MEDICATIONS No Known Medications RESULTS No Results PROCEDURES No Known procedures INSTRUCTIONS MEDICATIONS ADMINISTERED No Known Medications MEDICAL (GENERAL) HISTORY Type Description Date Medical History Hypothryoid Surgical History Bilateral Tubal Ligation Surgical History dilatation and curettage Surgical History section x2 Hospitalization History surgeries and childbirth Hospitalization History [facility] Gastritous 01/16/2018
--- OUTSIDE RECORDS SUMMARY | 2020-03-27 13:24 | XMS REPORT ---
Author Author Dominique Bishop Doctor Organization [facility] Address Unknown Phone Unavailable Care Team Providers Care Professional Fighter Name Role Phone Migration, Doctor Unavailable Unavailable PROBLEMS Type Condition ICD9-CM Code [id number] Code Onset Dates Condition S tatus SNOMED Code Problem Acquired hypothyroidism E03.9 Active 345681395 Problem Painful menstrual periods N94.6 Acti ve 531022796 Problem Primary hypothyroidism 244.9 Apr, 0 [id number] Problem Primary hypothyroidism E03.9 Apr, 0 [id number] ALLERGIES No Information ENCOUNTERS Encounter Location Date Diagnosis [facility] [address] [place] [address] Oct, Strep pharyngitis J02.0 and Poison brenda dermatitis L23.7 [facility] [address] [id number] [address] [place] [address] Sep, [facility] [address] [id number] [address] [place] [phone] February, Acquired hypothyroidism E03. 9 [facility] [address] [id number] [address] [place] [address] Sep, [facility] [address] [id number] [address] [place] [address] Jul, Well woman exam Z01.419 and Cervical cancer screening Z12.4 [facility] [address] [id number] [address] [place] [phone] Jul, Acquired hypothyroidism E03. 9 ; Myalgia M79.1 and Painful menstrual periods N94.6 [facility] [address] [id number] [address] [place] [id number] Jun, Chronic seasonal allergic rh initis due to other allergen J30.2 [facility] [address] [id number] [address] [place] [phone] Mar, Acquired hypothyroidism E03. [address] [facility] [address] [facility] [id number] [address] [place] [phone] Jan, Sore throat J02.9 and Strep throat J02.[address] [facility] [address] [facility] [id number] [address] [place] [id number] Jan, Scabies B86 and Sore throat J02.9 [facility] [address] [facility] [id number] [address] [place] [phone] Dec, Acquired hypothyroidism E03. 9 [facility] [address] [facility] [id number] [address] [place] [phone] Dec, Acquired hypothyroidism E03. 9 [facility] [address] [facility] [id number] [address] [place] [phone] Aug, Acquired hypothyroidism E03. 9 [facility] [address] [facility] [id number] [address] [place] [phone] May, [facility] [address] [facility] [id number] [address] [place] [phone] May, Encounter to establish care Z76.89 ; Alopecia L65.9 ; Fatigue, unspecified type R53.83 ; Left wrist pain M25.532 ; Pain in right knee M25.561 and Pain in left knee M25.562 [facility] [address] [facility] [id number] [address] [place] [phone] Jan, [facility] [address] [facility] [id number] [address] [place] [phone] Jan, [facility] [address] [id number] [address] [place] [phone] Apr, [facility] [address] [facility] [id number] [address] [place] [phone] Apr, [facility] [address] [id number] [address] [place] [phone] Apr, [facility] [address] [id number] [address] [place] [address], [place] [address] Apr, [facility] [address] [id number] [address] [place] [address], [place] [address] Dec, [facility] [address] [id number] [address] [place] [address], [place] [address] Dec, [facility] [address] [id number] [address] [place] [address], [place] [address] Nov, [facility] [address] [id number] [address] [place] [address], [place] [address] Nov, [facility] [address] [id number] [address] [place] [address], [place] [address] Nov, [facility] [address] [id number] [address] [place] [address], [place] [address] Nov, [facility] [address] [id number] [address] [place] [address], [place] [address] Apr, [facility] [address] [id number] [address] [place] [address], [place] [address] February, [facility] [address] [id number] [address] [place] [address], [place] [address] Jan, [facility] [address] [id number] [address] [place] [address], [place] [address] Jan, [facility] [address] [id number] [address] [place] [address], [place] [address] Jan, [facility] [address] [id number] [address] [place] [address], [place] [address] Jan, [facility] [address] [id number] [address] [place] [address], [place] [address] 17 Jan, 2013 [facility] [address] [id number] [address] [place] [address], [place] [address] 16 Jan, 2013 [facility] [address] [id number] [address] [place] [address], [place] [address] 15 Jan, 2013 [facility] [address] [id number] [address] [place] [address], [place] [address] Jan, [facility] [address] [id number] [address] [place] [address], [place] [address] 18 Dec, 2012 [facility] [address] [id number] [address] [place] [address], [place] [address] 06 Dec, 2012 [facility] [address] [id number] [address] [place] [address], [place] [address] 04 Dec, 2012 [facility] [address] [id number] [address] [place] [address], [place] [address] 20 Nov, 2012 [facility] [address] [id number] [address] [place] [address], [place] [address] 07 Nov, 2012 [facility] [address] [id number] [address] [place] [address], [place] [address] 07 Nov, 2012 [facility] [address] [id number] [address] [place] [address], [place] [address] 06 Nov, 2012 [facility] [address] [id number] [address] [place] [address], [place] [address] Oct, [facility] [address] [id number] [address] [place] [address], [place] [address] 18 Sep, 2012 [facility] [address] [id number] [address] [place] [address], [place] [address] 18 Sep, 2012 [facility] [address] [id number] [address] [place] [address], [place] [address] 17 Sep, 2012 [facility] [address] [id number] [address] [place] [address], [place] [address] 16 Sep, 2012 [facility] [address] [id number] [address] [place] [address], [place] [address] 13 Sep, 2012 [facility] [address] [id number] [address] [place] [address], [place] [address] 12 Sep, 2012 [facility] [address] [id number] [address] [place] [address], [place] [address] Sep, [facility] [address] [id number] [address] [place] [address], [place] [address] Aug, [facility] [address] [id number] [address] [place] [address], [place] [address] Aug, [facility] [address] [id number] [address] [place] [address], [place] [address] Aug, [facility] [address] [id number] [address] [place] [address], [place] [address] Aug, [facility] [address] [id number] [address] [place] [address], [place] [address] Jul, [facility] [address] [id number] [address] [place] [address], [place] [address] Jul, [facility] [address] [id number] [address] [place] [address], [place] [address] Jul, [facility] [address] [id number] [address] [place] [address], [place] [address] 28 Jun, 2012 [facility] [address] [id number] [address] [place] [address], [place] [address] 27 Jun, 2012 [facility] [address] [id number] [address] [place] [address], [place] [address] 16 Jun, 2012 [facility] [address] [id number] [address] [place] [address], [place] [address] 14 Jun, 2012 [facility] [address] [id number] [address] [place] [address], [place] [address] 11 Jun, 2012 [facility] [address] [id number] [address] [place] [address], [place] [address] February, [facility] [address] [id number] [address] [place] [address], [place] [address] February, [facility] [address] [id number] [address] [place] [address], [place] [address] February, [facility] [address] [id number] [address] [place] [address], [place] [address] Jan, [facility] [address] [id number] [address] [place] [address], [place] [address] Jan, [facility] [address] [id number] [address] [place] [address], [place] [address] Jan, [facility] [address] [id number] [address] [place] [address], [place] [address] Jan, [facility] [address] [id number] [address] [place] [address], [place] [address] Jan, [facility] [address] [id number] [address] [place] [address], [place] [address] Dec, [facility] [address] [id number] [address] [place] [address], [place] [address] Dec, [facility] [address] [id number] [address] [place] [address], [place] [address] Dec, [facility] [address] [id number] [address] [place] [address], [place] [address] Dec, [facility] [address] [id number] [address] [place] [address], [place] [address] Nov, [facility] [address] [id number] [address] [place] [address], [place] [address] Jul, [facility] [address] [id number] [address] [place] [address], [place] [address] Jul, [facility] [address] [id number] [address] [place] [address], [place] [address] Mar, [facility] [address] [id number] [address] [place] [address], [place] [address] Mar, [facility] [address] [id number] [address] [place] [address], [place] [address] Jan, [facility] [address] [id number] [address] [place] [address] 15 Dec, 2010 [facility] [address] [id number] [address] [place] [address] Sep, [facility] [address] [id number] [address] [place] [address] Sep, [facility] [address] [id number] [address] [place] [address] Sep, [facility] [address] [id number] [address] [place] [address] Sep, [facility] [address] [id number] [address] [place] [id number] Sep, [facility] [address] [id number] [address] [place] [phone] Aug, [facility] [address] [id number] [address] [place] [address] Aug, [facility] [address] [id number] [address] [place] [address] Jul, [facility] [address] [id number] [address] [place] [address] Jul, [facility] [address] [id number] [address] [place] [address] Jul, [facility] [address] [id number] [address] [place] [address] Nov, IMMUNIZATIONS No Known Immunizations SOCIAL HISTORY Never Assessed REASON FOR VISIT EMR[place] [place]AN OF CARE VITAL SIGNS MEDICATIONS No Known Medications RESULTS No Results PROCEDURES No Known procedures INSTRUCTIONS MEDICATIONS ADMINISTERED No Known Medications MEDICAL (GENERAL) HISTORY Type Description Date Medical History Hypothryoid Surgical History Bilateral Tubal Ligation Surgical History dilatation and curettage Surgical History section x2 Hospitalization History surgeries and childbirth Hospitalization History [facility] Gastrit[facility] 01/16/2018
--- OUTSIDE RECORDS SUMMARY | 2020-03-27 13:24 | XMS REPORT ---
Author Author Dominique Bishop Doctor Organization [facility] Address Unknown Phone Unavailable Care Team Providers Care Stone Mason Name Role Phone Migration, Doctor Unavailable Unavailable PROBLEMS Type Condition ICD9-CM Code NYN69-LI Code Onset Dates Condition S tatus SNOMED Code Problem Acquired hypothyroidism E03.9 Active 737834592 Problem Painful menstrual periods N94.6 Acti ve 560295825 Problem Primary hypothyroidism 244.9 Apr, 0 [id number] Problem Primary hypothyroidism E03.9 Apr, 0 [id number] ALLERGIES No Information ENCOUNTERS Encounter Location Date Diagnosis [facility] [address] [place] [address] Oct, Strep pharyngitis J02.0 and Poison brenda dermatitis L23.7 [facility] [id number] [place] [address] Sep, [facility] [id number] [place] [address] February, Acquired hypothyroidism E03. 9 [facility] [id number] [place] [address] Sep, [facility] [id number] [place] [address] Jul, Well woman exam Z01.419 and Cervical cancer screening Z12.4 [facility] [address] [id number] [address] [place] [address] Jul, Acquired hypothyroidism E03. 9 ; Myalgia M79.1 and Painful menstrual periods N94.6 [facility] [address] [id number] [address] [place] [address] Jun, Chronic seasonal allergic rh initis due to other allergen J30.2 [facility] [address] [id number] [address] [place] [address] Mar, Acquired hypothyroidism E03. 9 [facility] [address] [facility] [id number] [address] [place] [address] Jan, Sore throat J02.9 and Strep throat J02.0 [facility] [address] [facility] [id number] [address] [place] [address] Jan, Scabies B86 and Sore throat J02.9 [facility] [address] [facility] [id number] [address] [place] [address] Dec, Acquired hypothyroidism E03. 9 [facility] [address] [facility] [id number] [address] [place] [address] Dec, Acquired hypothyroidism E03. 9 [facility] [address] [facility] [id number] [address] [place] [address] Aug, Acquired hypothyroidism E03. 9 [facility] [address] [facility] [id number] [address] [place] [address] May, [facility] [address] [facility] [id number] [address] [place] [address] May, Encounter to establish care Z76.89 ; Alopecia L65.9 ; Fatigue, unspecified type R53.83 ; Left wrist pain M25.532 ; Pain in right knee M25.561 and Pain in left knee M25.562 [facility] [address] [facility] [id number] [address] [place] [address] Jan, [facility] [address] [facility] [id number] [address] [place] [address] Jan, [facility] [address] [id number] [address] [place] [address] Apr, [facility] [address] [facility] [id number] [address] [place] [address] Apr, [facility] [address] [id number] [address] [place] [address] Apr, [facility] [address] [id number] [address] [place] [address], [place] [address] Apr, [facility] [address] [id number] [address] [place] [address], [place] [address] Dec, [facility] [address] [id number] [address] [place] [address], [place] [address] Dec, [facility] [address] [id number] [address] [place] [address], [place] [address] Nov, [facility] [address] [id number] [address] [place] [address], [place] [address] Nov, [facility] [address] [id number] [address] [place] [address], [place] [address] Nov, [facility] [address] [id number] [address] [place] [address], [place] [address] Nov, [facility] [address] [id number] [address] [place] [address], [place] [address] Apr, [facility] [address] [id number] [address] [place] [address], [place] [address] February, [facility] [address] [id number] [address] [place] [address], [place] [address] Jan, [facility] [address] [id number] [address] [place] [address], [place] [address] Jan, [facility] [address] [id number] [address] [place] [address], [place] [address] Jan, [facility] [address] [id number] [address] [place] [address], [place] [address] Jan, [facility] [address] [id number] [address] [place] [address], [place] [address] 17 Jan, 2013 [facility] [address] [id number] [address] [place] [address], [place] [address] 16 Jan, 2013 [facility] [address] [id number] [address] [place] [address], [place] [address] 15 Jan, 2013 [facility] [address] [id number] [address] [place] [address], [place] [address] Jan, [facility] [address] [id number] [address] [place] [address], [place] [address] 18 Dec, 2012 [facility] [address] [id number] [address] [place] [address], [place] [address] 06 Dec, 2012 [facility] [address] [id number] [address] [place] [address], [place] [address] 04 Dec, 2012 [facility] [address] [id number] [address] [place] [address], [place] [address] 20 Nov, 2012 [facility] [address] [id number] [address] [place] [address], [place] [address] 07 Nov, 2012 [facility] [address] [id number] [address] [place] [address], [place] [address] 07 Nov, 2012 [facility] [address] [id number] [address] [place] [address], [place] [address] 06 Nov, 2012 [facility] [address] [id number] [address] [place] [address], [place] [address] Oct, [facility] [address] [id number] [address] [place] [address], [place] [address] 18 Sep, 2012 [facility] [address] [id number] [address] [place] [address], [place] [address] 18 Sep, 2012 [facility] [address] [id number] [address] [place] [address], [place] [address] 17 Sep, 2012 [facility] [address] [id number] [address] [place] [address], [place] [address] 16 Sep, 2012 [facility] [address] [id number] [address] [place] [address], [place] [address] 13 Sep, 2012 [facility] [address] [id number] [address] [place] [address], [place] [address] 12 Sep, 2012 [facility] [address] [id number] [address] [place] [address], [place] [address] Sep, [facility] [address] [id number] [address] [place] [address], [place] [address] Aug, [facility] [address] [id number] [address] [place] [address], [place] [address] Aug, [facility] [address] [id number] [address] [place] [address], [place] [address] Aug, [facility] [address] [id number] [address] [place] [address], [place] [address] Aug, [facility] [address] [id number] [address] [place] [address], [place] [address] Jul, [facility] [address] [id number] [address] [place] [address], [place] [address] Jul, [facility] [address] [id number] [address] [place] [address], [place] [address] Jul, [facility] [address] [id number] [address] [place] [address], [place] [address] 28 Jun, 2012 [facility] [address] [id number] [address] [place] [address], [place] [address] 27 Jun, 2012 [facility] [address] [id number] [address] [place] [address], [place] [address] 16 Jun, 2012 [facility] [address] [id number] [address] [place] [address], [place] [address] 14 Jun, 2012 [facility] [address] [id number] [address] [place] [address], [place] [address] 11 Jun, 2012 [facility] [address] [id number] [address] [place] [address], [place] [address] February, [facility] [address] [id number] [address] [place] [address], [place] [address] February, [facility] [address] [id number] [address] [place] [address], [place] [address] February, [facility] [address] [id number] [address] [place] [address], [place] [address] Jan, [facility] [address] [id number] [address] [place] [address], [place] [address] Jan, [facility] [address] [id number] [address] [place] [address], [place] [address] Jan, [facility] [address] [id number] [address] [place] [address], [place] [address] Jan, [facility] [address] [id number] [address] [place] [address], [place] [address] Jan, [facility] [address] [id number] [address] [place] [address], [place] [address] Dec, [facility] [address] [id number] [address] [place] [address], [place] [address] Dec, [facility] [address] [id number] [address] [place] [address], [place] [address] Dec, [facility] [address] [id number] [address] [place] [address], [place] [address] Dec, [facility] [address] [id number] [address] [place] [address], [place] [address] Nov, [facility] [address] [id number] [address] [place] [address], [place] [address] Jul, [facility] [address] [id number] [address] [place] [address], [place] [address] Jul, [facility] [address] [id number] [address] [place] [address], [place] [address] Mar, [facility] [address] [id number] [address] [place] [address], [place] [address] Mar, [facility] [address] [id number] [address] [place] [address], [place] [address] Jan, [facility] [address] [id number] [address] [place] [address] 15 Dec, 2010 [facility] [address] [id number] [address] [place] [address] Sep, [facility] [address] [id number] [address] [place] [address] Sep, [facility] [address] [id number] [address] [place] [address] Sep, [facility] [address] [id number] [address] [place] [address] Sep, [facility] [address] [id number] [address] [place] [address] Sep, [facility] [address] [id number] [address] [place] [address] Aug, [facility] [address] [id number] [address] [place] [address] Aug, [facility] [address] [id number] [address] [place] [address] Jul, [facility] [address] [id number] [address] [place] [address] Jul, [facility] [address] [id number] [address] [place] [address] Jul, [facility] [address] [id number] [address] [place] [address] Nov, IMMUNIZATIONS No Known Immunizations SOCIAL HISTORY Never Assessed REASON FOR VISIT [facility] [place] CARE VITAL SIGNS MEDICATIONS Medication Instructions Dosage Frequency Start Date End Date Duration S tatus Nitrofurantoin Macrocrystal 100 mg 1 cap joss by Oral route 2 times per day for 5 day(s) Jan, Active Aldara 5 % 1 sybil by Topical route 3 times per week f or 30 day(s) February, Active Miconazole 7 2 % insert 1 applicatorf ul by vaginal route once daily at bedtime for 7 days Jul, Active levothyroxine 75 mcg 1 tablet by Oral route 1 time per day Apr, Active RESULTS No Results PROCEDURES No Known procedures INSTRUCTIONS MEDICATIONS ADMINISTERED No Known Medications MEDICAL (GENERAL) HISTORY Type Description Date Medical History Hypothryoid Surgical History Bilateral Tubal Ligation Surgical History dilatation and curettage Surgical History section x2 Hospitalization History surgeries and childbirth Hospitalization History [facility] Gastritous 01/16/2018
--- OUTSIDE RECORDS SUMMARY | 2020-03-27 13:24 | XMS REPORT ---
Author Author Dominique Bishop Doctor Organization [facility] Address Unknown Phone Unavailable Care Team Providers Care [employer] Cook Name Role Phone Migration, Doctor Unavailable Unavailable PROBLEMS Type Condition ICD9-CM Code [id number] Code Onset Dates Condition S tatus SNOMED Code Problem Acquired hypothyroidism E03.9 Active 548792515 Problem Painful menstrual periods N94.6 Acti ve 892324444 Problem Primary hypothyroidism 244.9 Apr, 0 [id number] Problem Primary hypothyroidism E03.9 Apr, 0 [id number] ALLERGIES No Information ENCOUNTERS Encounter Location Date Diagnosis [facility] [address] [place] [address] Oct, Strep pharyngitis J02.0 and Poison brenda dermatitis L23.7 [facility] [id number] [place] [address] Sep, [facility] [id number] [address] [place] [address] February, Acquired hypothyroidism E03. 9 [facility] [id number] [place] [address] Sep, [facility] [id number] [place] [address] Jul, Well woman exam Z01.419 and Cervical cancer screening Z12.4 [facility] [address] [id number] [address] [place] [address] Jul, Acquired hypothyroidism E03. 9 ; Myalgia M79.1 and Painful menstrual periods N94.6 [facility] [address] [id number] [address] [place] [address] Jun, Chronic seasonal allergic rh initis due to other allergen J30.2 [facility] [address] [id number] [address] [place] [address] Mar, Acquired hypothyroidism E03. 9 [facility] [address] [facility] [id number] [address] [place] [address] Jan, Sore throat J02.9 and Strep throat J02.0 [facility] [address] [facility] [id number] [address] [place] [phone] Jan, Scabies B86 and Sore throat J02.9 [facility] [address] [facility] [id number] [address] [place] [address] Dec, Acquired hypothyroidism E03. 9 [facility] [address] [facility] [id number] [address] [place] [address] Dec, Acquired hypothyroidism E03. 9 [facility] [address] [facility] [id number] [address] [place] [address] Aug, Acquired hypothyroidism E03. 9 [facility] [address] [facility] [id number] [address] [place] [address] May, [facility] [address] [facility] [id number] [address] [place] [address] May, Encounter to establish care Z76.89 ; Alopecia L65.9 ; Fatigue, unspecified type R53.83 ; Left wrist pain M25.532 ; Pain in right knee M25.561 and Pain in left knee M25.562 [facility] [address] [facility] [id number] [address] [place] [address] Jan, [facility] [address] [facility] [id number] [address] [place] [phone] Jan, [facility] [address] [id number] [address] [place] [address] Apr, [facility] [address] [facility] [id number] [address] [place] [phone] Apr, [facility] [address] [id number] [address] [place] [phone] Apr, [facility] [address] [id number] [address] [place] [address], [place] [address] Apr, [facility] [address] [id number] [address] [place] [address], [place] [address] Dec, [facility] [address] [id number] [address] [place] [address], [place] [address] Dec, [facility] [address] [id number] [address] [place] [address], [place] [address] Nov, [facility] [address] [id number] [address] [place] [address], [place] [address] Nov, [facility] [address] [id number] [address] [place] [address], [place] [address] Nov, [facility] [address] [id number] [address] [place] [address], [place] [address] Nov, [facility] [address] [id number] [address] [place] [address], [place] [address] Apr, [facility] [address] [id number] [address] [place] [address], [place] [address] February, [facility] [address] [id number] [address] [place] [address], [place] [address] Jan, [facility] [address] [id number] [address] [place] [address], [place] [address] Jan, [facility] [address] [id number] [address] [place] [address], [place] [address] Jan, [facility] [address] [id number] [address] [place] [address], [place] [address] Jan, [facility] [address] [id number] [address] [place] [address], [place] [address] 17 Jan, 2013 [facility] [address] [id number] [address] [place] [address], [place] [address] 16 Jan, 2013 [facility] [address] [id number] [address] [place] [address], [place] [address] 15 Jan, 2013 [facility] [address] [id number] [address] [place] [address], [place] [address] Jan, [facility] [address] [id number] [address] [place] [address], [place] [address] 18 Dec, 2012 [facility] [address] [id number] [address] [place] [address], [place] [address] 06 Dec, 2012 [facility] [address] [id number] [address] [place] [address], [place] [address] 04 Dec, 2012 [facility] [address] [id number] [address] [place] [address], [place] [address] 20 Nov, 2012 [facility] [address] [id number] [address] [place] [address], [place] [address] 07 Nov, 2012 [facility] [address] [id number] [address] [place] [address], [place] [address] 07 Nov, 2012 [facility] [address] [id number] [address] [place] [address], [place] [address] 06 Nov, 2012 [facility] [address] [id number] [address] [place] [address], [place] [address] Oct, [facility] [address] [id number] [address] [place] [address], [place] [address] 18 Sep, 2012 [facility] [address] [id number] [address] [place] [address], [place] [address] 18 Sep, 2012 [facility] [address] [id number] [address] [place] [address], [place] [address] 17 Sep, 2012 [facility] [address] [id number] [address] [place] [address], [place] [address] 16 Sep, 2012 [facility] [address] [id number] [address] [place] [address], [place] [address] 13 Sep, 2012 [facility] [address] [id number] [address] [place] [address], [place] [address] 12 Sep, 2012 [facility] [address] [id number] [address] [place] [address], [place] [address] Sep, [facility] [address] [id number] [address] [place] [address], [place] [address] Aug, [facility] [address] [id number] [address] [place] [address], [place] [address] Aug, [facility] [address] [id number] [address] [place] [address], [place] [address] Aug, [facility] [address] [id number] [address] [place] [address], [place] [address] Aug, [facility] [address] [id number] [address] [place] [address], [place] [address] Jul, [facility] [address] [id number] [address] [place] [address], [place] [address] Jul, [facility] [address] [id number] [address] [place] [address], [place] [address] Jul, [facility] [address] [id number] [address] [place] [address], [place] [address] 28 Jun, 2012 [facility] [address] [id number] [address] [place] [address], [place] [address] 27 Jun, 2012 [facility] [address] [id number] [address] [place] [address], [place] [address] 16 Jun, 2012 [facility] [address] [id number] [address] [place] [address], [place] [address] 14 Jun, 2012 [facility] [address] [id number] [address] [place] [address], [place] [address] 11 Jun, 2012 [facility] [address] [id number] [address] [place] [address], [place] [address] February, [facility] [address] [id number] [address] [place] [address], [place] [address] February, [facility] [address] [id number] [address] [place] [address], [place] [address] February, [facility] [address] [id number] [address] [place] [address], [place] [address] Jan, [facility] [address] [id number] [address] [place] [address], [place] [address] Jan, [facility] [address] [id number] [address] [place] [address], [place] [address] Jan, [facility] [address] [id number] [address] [place] [address], [place] [address] Jan, [facility] [address] [id number] [address] [place] [address], [place] [address] Jan, [facility] [address] [id number] [address] [place] [address], [place] [address] Dec, [facility] [address] [id number] [address] [place] [address], [place] [address] Dec, [facility] [address] [id number] [address] [place] [address], [place] [address] Dec, [facility] [address] [id number] [address] [place] [address], [place] [address] Dec, [facility] [address] [id number] [address] [place] [address], [place] [address] Nov, [facility] [address] [id number] [address] [place] [address], [place] [address] Jul, [facility] [address] [id number] [address] [place] [address], [place] [address] Jul, [facility] [address] [id number] [address] [place] [address], [place] [address] Mar, [facility] [address] [id number] [address] [place] [address], [place] [address] Mar, [facility] [address] [id number] [address] [place] [address], [place] [address] Jan, [facility] [address] [id number] [address] [place] [address] 15 Dec, 2010 [facility] [address] [id number] [address] [place] [address] Sep, [facility] [address] [id number] [address] [place] [address] Sep, [facility] [address] [id number] [address] [place] [address] Sep, [facility] [address] [id number] [address] [place] [address] Sep, [facility] [address] [id number] [address] [place] [address] Sep, [facility] [address] [id number] [address] [place] [address] Aug, [facility] [address] [id number] [address] [place] [address] Aug, [facility] [address] [id number] [address] [place] [address] Jul, [facility] [address] [id number] [address] [place] [address] Jul, [facility] [address] [id number] [address] [place] [address] Jul, [facility] [address] [id number] [address] [place] [address] Nov, IMMUNIZATIONS No Known Immunizations SOCIAL HISTORY Never Assessed REASON FOR VISIT [place] [place] VITAL SIGNS MEDICATIONS No Known Medications RESULTS No Results PROCEDURES No Known procedures INSTRUCTIONS MEDICATIONS ADMINISTERED No Known Medications MEDICAL (GENERAL) HISTORY Type Description Date Medical History Hypothryoid Surgical History Bilateral Tubal Ligation Surgical History dilatation and curettage Surgical History section x2 Hospitalization History surgeries and childbirth Hospitalization History [facility] 01/16/2018
--- OUTSIDE RECORDS SUMMARY | 2020-03-27 13:24 | XMS REPORT ---
Author Author Dominique Bishop Doctor Organization [facility] Address Unknown Phone Unavailable Care Team Providers Care Insurance Verification Clerk Name Role Phone Migration, Doctor Unavailable Unavailable PROBLEMS Type Condition ICD9-CM Code [id number] Code Onset Dates Condition S tatus SNOMED Code Problem Acquired hypothyroidism E03.9 Active 483846408 Problem Painful menstrual periods N94.6 Acti ve 835967459 Problem Primary hypothyroidism 244.9 Apr, 0 [id number] Problem Primary hypothyroidism E03.9 Apr, 0 [id number] ALLERGIES No Information ENCOUNTERS Encounter Location Date Diagnosis [facility] [address] [place] [address] Oct, Strep pharyngitis J02.0 and Poison brenda dermatitis L23.7 [facility] [address] [id number] [address] [place] [address] Sep, [facility] [address] [id number] [address] [place] [address] February, Acquired hypothyroidism E03. 9 [facility] [address] [id number] [address] [place] [address] Sep, [facility] [address] [id number] [address] [place] [address] Jul, Well woman exam Z01.419 and Cervical cancer screening Z12.4 [facility] [address] [id number] [address] [place] [address] Jul, Acquired hypothyroidism E03. 9 ; Myalgia M79.1 and Painful menstrual periods N94.6 [facility] [address] [id number] [address] [place] [address] Jun, Chronic seasonal allergic rh initis due to other allergen J30.2 [facility] [address] [id number] [address] [place] [address] Mar, Acquired hypothyroidism E03. 9 [facility] [address] [facility] [id number] [address] [place] [address] Jan, Sore throat J02.9 and Strep throat J02.0 [facility] [address] [facility] [id number] [address] [place] [address] Jan, Scabies B86 and Sore throat J02.9 [facility] [address] [facility] [id number] [address] [place] [address] Dec, Acquired hypothyroidism E03. 9 [facility] [address] [facility] [id number] [address] [place] [address] Dec, Acquired hypothyroidism E03. 9 [facility] [address] [facility] [id number] [address] [place] [address] Aug, Acquired hypothyroidism E03. 9 [facility] [address] [facility] [id number] [address] [place] [address] May, [facility] [address] [facility] [id number] [address] [place] [address] May, Encounter to establish care Z76.89 ; Alopecia L65.9 ; Fatigue, unspecified type R53.83 ; Left wrist pain M25.532 ; Pain in right knee M25.561 and Pain in left knee M25.562 [facility] [address] [facility] [id number] [address] [place] [address] Jan, [facility] [address] [facility] [id number] [address] [place] [phone] Jan, [facility] [address] [id number] [address] [place] [address] Apr, [facility] [address] [facility] [id number] [address] [place] [phone] Apr, [facility] [address] [id number] [address] [place] [phone] Apr, [facility] [place] [facility] [address] [id number] [address] [place] [address], [place] [address] Apr, [facility] [address] [id number] [address] [place] [address], [place] [address] Dec, [facility] [address] [id number] [address] [place] [address], [place] [address] Dec, [facility] [address] [id number] [address] [place] [address], [place] [address] Nov, [facility] [address] [id number] [address] [place] [address], [place] [address] Nov, [facility] [address] [id number] [address] [place] [address], [place] [address] Nov, [facility] [address] [id number] [address] [place] [address], [place] [address] Nov, [facility] [address] [id number] [address] [place] [address], [place] [address] Apr, [facility] [address] [id number] [address] [place] [address], [place] [address] February, [facility] [address] [id number] [address] [place] [address], [place] [address] Jan, [facility] [address] [id number] [address] [place] [address], [place] [address] Jan, [facility] [address] [id number] [address] [place] [address], [place] [address] Jan, [facility] [place] [facility] [address] [id number] [address] [place] [address], [place] [address] Jan, [facility] [place] [facility] [address] [id number] [address] [place] [address], [place] [address] 17 Jan, 2013 [facility] [place] [facility] [address] [id number] [address] [place] [address], [place] [address] 16 Jan, 2013 [facility] [place] [facility] [address] [id number] [address] [place] [address], [place] [address] 15 Jan, 2013 [facility] [address] [id number] [address] [place] [address], [place] [address] Jan, [facility] [address] [id number] [address] [place] [address], [place] [address] 18 Dec, 2012 [facility] [address] [id number] [address] [place] [address], [place] [address] 06 Dec, 2012 [facility] [address] [id number] [address] [place] [address], [place] [address] 04 Dec, 2012 [facility] [address] [id number] [address] [place] [address], [place] [address] 20 Nov, 2012 [facility] [address] [id number] [address] [place] [address], [place] [address] 07 Nov, 2012 [facility] [address] [id number] [address] [place] [address], [place] [address] 07 Nov, 2012 [facility] [address] [id number] [address] [place] [address], [place] [address] 06 Nov, 2012 [facility] [address] [id number] [address] [place] [address], [place] [address] Oct, [facility] [address] [id number] [address] [place] [address], [place] [address] 18 Sep, 2012 [facility] [address] [id number] [address] [place] [address], [place] [address] 18 Sep, 2012 [facility] [address] [id number] [address] [place] [address], [place] [address] 17 Sep, 2012 [facility] [address] [id number] [address] [place] [address], [place] [address] 16 Sep, 2012 [facility] [address] [id number] [address] [place] [address], [place] [address] 13 Sep, 2012 [facility] [address] [id number] [address] [place] [address], [place] [address] 12 Sep, 2012 [facility] [address] [id number] [address] [place] [address], [place] [address] Sep, [facility] [address] [id number] [address] [place] [address], [place] [address] Aug, [facility] [address] [id number] [address] [place] [address], [place] [address] Aug, [facility] [address] [id number] [address] [place] [address], [place] [address] Aug, [facility] [address] [id number] [address] [place] [address], [place] [address] Aug, [facility] [address] [id number] [address] [place] [address], [place] [address] Jul, [facility] [address] [id number] [address] [place] [address], [place] [address] Jul, [facility] [address] [id number] [address] [place] [address], [place] [address] Jul, [facility] [address] [id number] [address] [place] [address], [place] [address] 28 Jun, 2012 [facility] [address] [id number] [address] [place] [address], [place] [address] 27 Jun, 2012 [facility] [address] [id number] [address] [place] [address], [place] [address] 16 Jun, 2012 [facility] [address] [id number] [address] [place] [address], [place] [address] 14 Jun, 2012 [facility] [address] [id number] [address] [place] [address], [place] [address] 11 Jun, 2012 [facility] [place] [facility] [address] [id number] [address] [place] [address], [place] [address] February, [facility] [place] [facility] [address] [id number] [address] [place] [address], [place] [address] February, [facility] [place] [facility] [address] [id number] [address] [place] [address], [place] [address] February, [facility] [address] [id number] [address] [place] [address], [place] [address] Jan, [facility] [address] [id number] [address] [place] [address], [place] [address] Jan, [facility] [address] [id number] [address] [place] [address], [place] [address] Jan, [facility] [address] [id number] [address] [place] [address], [place] [address] Jan, [facility] [address] [id number] [address] [place] [address], [place] [address] Jan, [facility] [address] [id number] [address] [place] [address], [place] [address] Dec, [facility] [address] [id number] [address] [place] [address], [place] [address] Dec, [facility] [address] [id number] [address] [place] [address], [place] [address] Dec, [facility] [address] [id number] [address] [place] [address], [place] [address] Dec, [facility] [address] [id number] [address] [place] [address], [place] [address] Nov, [facility] [address] [id number] [address] [place] [address], [place] [address] Jul, [facility] [place] [facility] [address] [id number] [address] [place] [address], [place] [address] Jul, [facility] [address] [id number] [address] [place] [address], [place] [address] Mar, [facility] [place] [facility] [address] [id number] [address] [place] [address], [place] [address] Mar, [facility] [place] [facility] [address] [id number] [address] [place] [address], [place] [address] Jan, [facility] [address] [id number] [address] [place] [address] 15 Dec, 2010 [facility] [address] [id number] [address] [place] [address] Sep, [facility] [address] [id number] [address] [place] [address] Sep, [facility] [address] [id number] [address] [place] [address] Sep, [facility] [address] [id number] [address] [place] [address] Sep, [facility] [address] [id number] [address] [place] [address] Sep, [facility] [address] [id number] [address] [place] [address] Aug, [facility] [address] [id number] [address] [place] [address] Aug, [facility] [address] [id number] [address] [place] [id number] Jul, [facility] [address] [id number] [address] [place] [address] Jul, [facility] [address] [id number] [address] [place] [address] Jul, [facility] [address] [id number] [address] [place] [address] Nov, IMMUNIZATIONS No Known Immunizations SOCIAL HISTORY Never Assessed REASON FOR VISIT EMR-[facility] [place] PLAN OF CARE VITAL SIGNS MEDICATIONS No Known Medications RESULTS No Results PROCEDURES No Known procedures INSTRUCTIONS MEDICATIONS ADMINISTERED No Known Medications MEDICAL (GENERAL) HISTORY Type Description Date Medical History Hypothryoid Surgical History Bilateral Tubal Ligation Surgical History dilatation and curettage Surgical History section x2 Hospitalization History surgeries and childbirth Hospitalization History [facility] 01/16/2018
--- OUTSIDE RECORDS SUMMARY | 2020-03-27 13:24 | XMS REPORT ---
Author Author Dominique Bishop Doctor Organization [facility] Address Unknown Phone Unavailable Care Team Providers Care Digital Sales Director Name Role Phone Migration, Doctor Unavailable Unavailable PROBLEMS Type Condition ICD9-CM Code ZWO01-VG Code Onset Dates Condition S tatus SNOMED Code Problem Acquired hypothyroidism E03.9 Active 295092849 Problem Painful menstrual periods N94.6 Acti ve 412584823 Problem Primary hypothyroidism 244.9 Apr, 0 [id number] Problem Primary hypothyroidism E03.9 Apr, 0 [id number] ALLERGIES No Information ENCOUNTERS Encounter Location Date Diagnosis [facility] [address] [place] [address] Oct, Strep pharyngitis J02.0 and Poison brenda dermatitis L23.7 [facility] [place] [id number] [place] [address] Sep, [facility] [place] [address] [id number] [address] [place] [address] February, Acquired hypothyroidism E03. 9 [facility] [place] [id number] [address] [place] [address] Sep, [facility] [place] [id number] [address] [place] [address] Jul, Well woman exam Z01.419 and Cervical cancer screening Z12.4 [facility] [place] [address] [id number] [address] [place] [address] Jul, Acquired hypothyroidism E03. 9 ; Myalgia M79.1 and Painful menstrual periods N94.6 [facility] [address] [id number] [address] [place] [address] Jun, Chronic seasonal allergic rh initis due to other allergen J30.2 [facility] [place] [address] [id number] [address] [place] [address] Mar, Acquired hypothyroidism E03. 9 [facility] [address] [facility] [id number] [address] [place] [id number] Jan, Sore throat J02.9 and Strep throat J02.0 [facility] [address] [facility] [id number] [address] [place] [phone] Jan, Scabies B86 and Sore throat J02.9 [facility] [place] [address] [facility] [id number] [address] [place] [id number] Dec, Acquired hypothyroidism E03. 9 [facility] [place] [address] [facility] [id number] [address] [place] [address] Dec, Acquired hypothyroidism E03. 9 [facility] [place] [address] [facility] [id number] [address] [place] [id number] Aug, Acquired hypothyroidism E03. 9 [facility] [place] [address] [facility] [id number] [address] [place] [id number] May, [facility] [place] [address] [facility] [id number] [address] [place] [id number] May, Encounter to establish care Z76.89 ; Alopecia L65.9 ; Fatigue, unspecified type R53.83 ; Left wrist pain M25.532 ; Pain in right knee M25.561 and Pain in left knee M25.562 [facility] [place] [address] [facility] [id number] [address] [place] [id number] Jan, [facility] [place] [address] [facility] [id number] [address] [place] [phone] Jan, [facility] [place] [address] [id number] [address] [place] [id number] Apr, [facility] [place] [address] [facility] [id number] [address] [place] [id number] Apr, [facility] [place] [address] [id number] [address] [place] [phone] Apr, [facility] [address] [id number] [address] [place] [address], [place] [address] Apr, [facility] [address] [id number] [address] [place] [address], [place] [address] Dec, [facility] [address] [id number] [address] [place] [address], [place] [address] Dec, [facility] [address] [id number] [address] [place] [address], [place] [address] Nov, [facility] [address] [id number] [address] [place] [address], [place] [address] Nov, [facility] [address] [id number] [address] [place] [address], [place] [address] Nov, [facility] [address] [id number] [address] [place] [address], [place] [address] Nov, [facility] [address] [id number] [address] [place] [address], [place] [address] Apr, [facility] [address] [id number] [address] [place] [address], [place] [address] February, [facility] [address] [id number] [address] [place] [address], [place] [address] Jan, [facility] [address] [id number] [address] [place] [address], [place] [address] Jan, [facility] [address] [id number] [address] [place] [address], [place] [address] Jan, [facility] [address] [id number] [address] [place] [address], [place] [address] Jan, [facility] [address] [id number] [address] [place] [address], [place] [address] 17 Jan, 2013 [facility] [address] [id number] [address] [place] [address], [place] [address] 16 Jan, 2013 [facility] [address] [id number] [address] [place] [address], [place] [address] 15 Jan, 2013 [facility] [address] [id number] [address] [place] [address], [place] [address] Jan, [facility] [address] [id number] [address] [place] [address], [place] [address] 18 Dec, 2012 [facility] [address] [id number] [address] [place] [address], [place] [address] 06 Dec, 2012 [facility] [address] [id number] [address] [place] [address], [place] [address] 04 Dec, 2012 [facility] [address] [id number] [address] [place] [address], [place] [address] 20 Nov, 2012 [facility] [address] [id number] [address] [place] [address], [place] [address] 07 Nov, 2012 [facility] [address] [id number] [address] [place] [address], [place] [address] 07 Nov, 2012 [facility] [address] [id number] [address] [place] [address], [place] [address] 06 Nov, 2012 [facility] [address] [id number] [address] [place] [address], [place] [address] Oct, [facility] [address] [id number] [address] [place] [address], [place] [address] 18 Sep, 2012 [facility] [address] [id number] [address] [place] [address], [place] [address] 18 Sep, 2012 [facility] [address] [id number] [address] [place] [address], [place] [address] 17 Sep, 2012 [facility] [address] [id number] [address] [place] [address], [place] [address] 16 Sep, 2012 [facility] [address] [id number] [address] [place] [address], [place] [address] 13 Sep, 2012 [facility] [address] [id number] [address] [place] [address], [place] [address] 12 Sep, 2012 [facility] [address] [id number] [address] [place] [address], [place] [address] Sep, [facility] [address] [id number] [address] [place] [address], [place] [address] Aug, [facility] [address] [id number] [address] [place] [address], [place] [address] Aug, [facility] [address] [id number] [address] [place] [address], [place] [address] Aug, [facility] [address] [id number] [address] [place] [address], [place] [address] Aug, [facility] [address] [id number] [address] [place] [address], [place] [address] Jul, [facility] [address] [id number] [address] [place] [address], [place] [address] Jul, [facility] [address] [id number] [address] [place] [address], [place] [address] Jul, [facility] [address] [id number] [address] [place] [address], [place] [address] 28 Jun, 2012 [facility] [address] [id number] [address] [place] [address], [place] [address] 27 Jun, 2012 [facility] [address] [id number] [address] [place] [address], [place] [address] 16 Jun, 2012 [facility] [address] [id number] [address] [place] [address], [place] [address] 14 Jun, 2012 [facility] [address] [id number] [address] [place] [address], [place] [address] 11 Jun, 2012 [facility] [address] [id number] [address] [place] [address], [place] [address] February, [facility] [address] [id number] [address] [place] [address], [place] [address] February, [facility] [address] [id number] [address] [place] [address], [place] [address] February, [facility] [address] [id number] [address] [place] [address], [place] [address] Jan, [facility] [address] [id number] [address] [place] [address], [place] [address] Jan, [facility] [address] [id number] [address] [place] [address], [place] [address] Jan, [facility] [address] [id number] [address] [place] [address], [place] [address] Jan, [facility] [address] [id number] [address] [place] [address], [place] [address] Jan, [facility] [address] [id number] [address] [place] [address], [place] [address] Dec, [facility] [address] [id number] [address] [place] [address], [place] [address] Dec, [facility] [address] [id number] [address] [place] [address], [place] [address] Dec, [facility] [address] [id number] [address] [place] [address], [place] [address] Dec, [facility] [address] [id number] [address] [place] [address], [place] [address] Nov, [facility] [address] [id number] [address] [place] [address], [place] [address] Jul, [facility] [address] [id number] [address] [place] [address], [place] [address] Jul, [facility] [address] [id number] [address] [place] [address], [place] [address] Mar, [facility] [address] [id number] [address] [place] [address], [place] [address] Mar, [facility] [address] [id number] [address] [place] [address], [place] [address] Jan, [facility] [address] [id number] [address] [place] [id number] 15 Dec, 2010 [facility] [place] [address] [id number] [address] [place] [address] Sep, [facility] [place] [address] [id number] [address] [place] [address] Sep, [facility] [place] [address] [id number] [address] [place] [address] Sep, [facility] [place] [address] [id number] [address] [place] [id number] Sep, [facility] [place] [address] [id number] [address] [place] [address] Sep, [facility] [place] [address] [id number] [address] [place] [address] Aug, [facility] [place] [address] [id number] [address] [place] [address] Aug, [facility] [place] [address] [id number] [address] [place] [address] Jul, [facility] [place] [address] [id number] [address] [place] [id number] Jul, [facility] [place] [address] [id number] [address] [place] [address] Jul, [facility] [place] [address] [id number] [address] [place] [address] Nov, IMMUNIZATIONS No Known Immunizations SOCIAL HISTORY Never Assessed REASON FOR VISIT EMR[place] [place] VITAL SIGNS MEDICATIONS No Known Medications RESULTS No Results PROCEDURES No Known procedures INSTRUCTIONS MEDICATIONS ADMINISTERED No Known Medications MEDICAL (GENERAL) HISTORY Type Description Date Medical History Hypothryoid Surgical History Bilateral Tubal Ligation Surgical History dilatation and curettage Surgical History section x2 Hospitalization History surgeries and childbirth Hospitalization History [facility] Gastritous 01/16/2018
--- OUTSIDE RECORDS SUMMARY | 2020-03-27 13:24 | XMS REPORT ---
Author Author Dominique Bishop Doctor Organization [facility] Address Unknown Phone Unavailable Care Team Providers Care Remediation Project Engineer Name Role Phone Migration, Doctor Unavailable Unavailable PROBLEMS Type Condition ICD9-CM Code [id number] Code Onset Dates Condition S tatus SNOMED Code Problem Acquired hypothyroidism E03.9 Active 917126657 Problem Painful menstrual periods N94.6 Acti ve 458038574 Problem Primary hypothyroidism 244.9 Apr, 0 [id number] Problem Primary hypothyroidism E03.9 Apr, 0 [id number] ALLERGIES No Information ENCOUNTERS Encounter Location Date Diagnosis [facility] [address] [place] [address] Oct, Strep pharyngitis J02.0 and Poison brenda dermatitis L23.7 [facility] [address] [id number] [address] [place] [phone] Sep, [facility] [address] [id number] [address] [place] [phone] February, Acquired hypothyroidism E03. 9 [facility] [address] [id number] [address] [place] [phone] Sep, [facility] [address] [id number] [address] [place] [phone] Jul, Well woman exam Z01.419 and Cervical cancer screening Z12.4 [facility] [address] [id number] [address] [place] [phone] Jul, Acquired hypothyroidism E03. 9 ; Myalgia M79.1 and Painful menstrual periods N94.6 [facility] [address] [id number] [address] [place] [phone] Jun, Chronic seasonal allergic rh initis due to other allergen J30.2 [facility] [address] [id number] [address] [place] [phone] Mar, Acquired hypothyroidism E03. 9 [facility] [address] [facility] [id number] [address] [place] [id number] Jan, Sore throat J02.9 and Strep throat J02.0 [facility] [address] [facility] [id number] [address] [place] [id number] Jan, Scabies B86 and Sore throat J02.9 [facility] [address] [facility] [id number] [address] [place] [phone] Dec, Acquired hypothyroidism E03. 9 [facility] [address] [facility] [id number] [address] [place] [phone] Dec, Acquired hypothyroidism E03. 9 [facility] [address] [facility] [id number] [address] [place] [phone] Aug, Acquired hypothyroidism E03. 9 [facility] [address] [facility] [id number] [address] [place] [phone] May, [facility] [address] [facility] [id number] [address] [place] [id number] May, Encounter to establish care Z76.89 ; Alopecia L65.9 ; Fatigue, unspecified type R53.83 ; Left wrist pain M25.532 ; Pain in right knee M25.561 and Pain in left knee M25.562 [facility] [address] [facility] [id number] [address] [place] [phone] Jan, [facility] [address] [facility] [id number] [address] [place] [phone] Jan, [facility] [address] [id number] [address] [place] [phone] Apr, [facility] [address] [facility] [id number] [address] [place] [id number] Apr, [facility] [address] [id number] [address] [place] [phone] Apr, [facility] [address] [id number] [address] [place] [address], [place] [address] Apr, [facility] [address] [id number] [address] [place] [address], [place] [address] Dec, [facility] [address] [id number] [address] [place] [address], [place] [address] Dec, [facility] [address] [id number] [address] [place] [address], [place] [address] Nov, [facility] [address] [id number] [address] [place] [address], [place] [address] Nov, [facility] [address] [id number] [address] [place] [address], [place] [address] Nov, [facility] [address] [id number] [address] [place] [address], [place] [address] Nov, [facility] [address] [id number] [address] [place] [address], [place] [address] Apr, [facility] [address] [id number] [address] [place] [address], [place] [address] February, [facility] [address] [id number] [address] [place] [address], [place] [address] Jan, [facility] [address] [id number] [address] [place] [address], [place] [address] Jan, [facility] [address] [id number] [address] [place] [address], [place] [address] Jan, [facility] [address] [id number] [address] [place] [address], [place] [address] Jan, [facility] [address] [id number] [address] [place] [address], [place] [address] 17 Jan, 2013 [facility] [address] [id number] [address] [place] [address], [place] [address] 16 Jan, 2013 [facility] [address] [id number] [address] [place] [address], [place] [address] 15 Jan, 2013 [facility] [address] [id number] [address] [place] [address], [place] [address] Jan, [facility] [address] [id number] [address] [place] [address], [place] [address] 18 Dec, 2012 [facility] [address] [id number] [address] [place] [address], [place] [address] 06 Dec, 2012 [facility] [address] [id number] [address] [place] [address], [place] [address] 04 Dec, 2012 [facility] [address] [id number] [address] [place] [address], [place] [address] 20 Nov, 2012 [facility] [address] [id number] [address] [place] [address], [place] [address] 07 Nov, 2012 [facility] [address] [id number] [address] [place] [address], [place] [address] 07 Nov, 2012 [facility] [address] [id number] [address] [place] [address], [place] [address] 06 Nov, 2012 [facility] [address] [id number] [address] [place] [address], [place] [address] Oct, [facility] [address] [id number] [address] [place] [address], [place] [address] 18 Sep, 2012 [facility] [address] [id number] [address] [place] [address], [place] [address] 18 Sep, 2012 [facility] [address] [id number] [address] [place] [address], [place] [address] 17 Sep, 2012 [facility] [address] [id number] [address] [place] [address], [place] [address] 16 Sep, 2012 [facility] [address] [id number] [address] [place] [address], [place] [address] 13 Sep, 2012 [facility] [address] [id number] [address] [place] [address], [place] [address] 12 Sep, 2012 [facility] [address] [id number] [address] [place] [address], [place] [address] Sep, [facility] [address] [id number] [address] [place] [address], [place] [address] Aug, [facility] [address] [id number] [address] [place] [address], [place] [address] Aug, [facility] [address] [id number] [address] [place] [address], [place] [address] Aug, [facility] [address] [id number] [address] [place] [address], [place] [address] Aug, [facility] [address] [id number] [address] [place] [address], [place] [address] Jul, [facility] [address] [id number] [address] [place] [address], [place] [address] Jul, [facility] [address] [id number] [address] [place] [address], [place] [address] Jul, [facility] [address] [id number] [address] [place] [address], [place] [address] 28 Jun, 2012 [facility] [address] [id number] [address] [place] [address], [place] [address] 27 Jun, 2012 [facility] [address] [id number] [address] [place] [address], [place] [address] 16 Jun, 2012 [facility] [address] [id number] [address] [place] [address], [place] [address] 14 Jun, 2012 [facility] [address] [id number] [address] [place] [address], [place] [address] 11 Jun, 2012 [facility] [address] [id number] [address] [place] [address], [place] [address] February, [facility] [address] [id number] [address] [place] [address], [place] [address] February, [facility] [address] [id number] [address] [place] [address], [place] [address] February, [facility] [address] [id number] [address] [place] [address], [place] [address] Jan, [facility] [address] [id number] [address] [place] [address], [place] [address] Jan, [facility] [address] [id number] [address] [place] [address], [place] [address] Jan, [facility] [address] [id number] [address] [place] [address], [place] [address] Jan, [facility] [address] [id number] [address] [place] [address], [place] [address] Jan, [facility] [address] [id number] [address] [place] [address], [place] [address] Dec, [facility] [address] [id number] [address] [place] [address], [place] [address] Dec, [facility] [address] [id number] [address] [place] [address], [place] [address] Dec, [facility] [address] [id number] [address] [place] [address], [place] [address] Dec, [facility] [address] [id number] [address] [place] [address], [place] [address] Nov, [facility] [address] [id number] [address] [place] [address], [place] [address] Jul, [facility] [address] [id number] [address] [place] [address], [place] [address] Jul, [facility] [address] [id number] [address] [place] [address], [place] [address] Mar, [facility] [address] [id number] [address] [place] [address], [place] [address] Mar, [facility] [address] [id number] [address] [place] [address], [place] [address] Jan, [facility] [address] [id number] [address] [place] [id number] 15 Dec, 2010 [facility] [address] [id number] [address] [place] [id number] Sep, [facility] [address] [id number] [address] [place] [id number] Sep, [facility] [address] [id number] [address] [place] [id number] Sep, [facility] [address] [id number] [address] [place] [id number] Sep, [facility] [address] [id number] [address] [place] [phone] Sep, [facility] [address] [id number] [address] [place] [phone] Aug, [facility] [address] [id number] [address] [place] [id number] Aug, [facility] [address] [id number] [address] [place] [id number] Jul, [facility] [address] [id number] [address] [place] [id number] Jul, [facility] [address] [id number] [address] [place] [id number] Jul, [facility] [address] [id number] [address] [place] [id number] Nov, IMMUNIZATIONS No Known Immunizations SOCIAL HISTORY Never Assessed REASON FOR VISIT EMR[place] [place] OF CARE VITAL SIGNS MEDICATIONS No Known Medications RESULTS No Results PROCEDURES No Known procedures INSTRUCTIONS MEDICATIONS ADMINISTERED No Known Medications MEDICAL (GENERAL) HISTORY Type Description Date Medical History Hypothryoid Surgical History Bilateral Tubal Ligation Surgical History dilatation and curettage Surgical History section x2 Hospitalization History surgeries and childbirth Hospitalization History [facility] Gastritous 01/16/2018
--- OUTSIDE RECORDS SUMMARY | 2020-03-27 13:25 | XMS REPORT ---
Author Author Dominique VYAS Organization [facility] Address [address] [place] [address] Care Team Providers Care Propagation Manager Name Role Phone BOLIVAR VYAS Unavailable PROBLEMS Type Condition ICD9-CM Code [id number] Code Onset Dates Condition S tatus SNOMED Code Problem Painful menstrual periods N94.6 Acti ve 226879715 Problem Acquired hypothyroidism E03.9 Active [id number] ALLERGIES Substance Reaction Event Type Date Status Penicillin V Potassium Unknown Drug Allergy Jul, Activ e ENCOUNTERS Encounter Location Date Diagnosis [address] [address] February, [address] [address] Jul, Well woman exam Z01.419 and Cervical cancer screening Z12.[address] [address] Jul, Acquired hypothyroidism E03. 9 ; Myalgia M79.1 and Painful menstrual periods N94.6 [facility] [id number] [place] [address] Jun, Chronic seasonal allergic rh initis due to other allergen J30.2 [facility] [address] [place], [place] [id number] [address] [place] [address] Mar, Acquired hypothyroidism E03. 9 [facility] [address] [place] [address] Jan, Sore throat J02.9 and Strep throat J02.0 [facility] [id number] [place] [address] Jan, Scabies B86 and Sore throat J02.9 [facility] [address] [id number] [address] [place] [address] Dec, Acquired hypothyroidism E03. 9 [facility] [address] [id number] [address] [place] [address] Dec, Acquired hypothyroidism E03. 9 [facility] [address] [facility] [id number] [address] [place] [address] Aug, Acquired hypothyroidism E03. 9 [facility] [address] [id number] [address] [place] [address] May, [facility] [address] [facility] [id number] [address] [place] [address] May, Encounter to establish care Z76.89 ; Alopecia L65.9 ; Fatigue, unspecified type R53.83 ; Left wrist pain M25.532 ; Pain in right knee M25.561 and Pain in left knee M25.562 [facility] [address] [id number] [address] [place] [address] Jan, [facility] [address] [id number] [address] [place] [address] Jan, [facility] [address] [facility] [id number] [address] [place] [address] Apr, [facility] [address] [facility] [id number] [address] [place] [address] Apr, [facility] [address] [id number] [address] [place] [address] Apr, [facility] [address] [facility] [id number] [address] [place] [address] Apr, [facility] [address] [facility] [id number] [address] [place] [address] Dec, [facility] [address] [facility] [id number] [address] [place] [address] Dec, [facility] [address] [id number] [address] [place] [address], [place] [address] Nov, [facility] [address] [id number] [address] [place] [address], [place] [address] Nov, [facility] [address] [id number] [address] [place] [address], [place] [address] Nov, [facility] [address] [id number] [address] [place] [address], [place] [address] Nov, [facility] [address] [id number] [address] [place] [address], [place] [address] Apr, [facility] [address] [id number] [address] [place] [address], [place] [address] February, [facility] [address] [id number] [address] [place] [address], [place] [address] Jan, [facility] [address] [id number] [address] [place] [address], [place] [address] Jan, [facility] [address] [id number] [address] [place] [address], [place] [address] Jan, [facility] [address] [id number] [address] [place] [address], [place] [address] Jan, [facility] [address] [id number] [address] [place] [address], [place] [address] Jan, [facility] [address] [id number] [address] [place] [address], [place] [address] 16 Jan, 2013 [facility] [address] [id number] [address] [place] [address], [place] [address] 15 Jan, 2013 [facility] [address] [id number] [address] [place] [address], [place] [address] Jan, [facility] [address] [id number] [address] [place] [address], [place] [address] Dec, [facility] [address] [id number] [address] [place] [address], [place] [address] 06 Dec, 2012 [facility] [address] [id number] [address] [place] [address], [place] [address] 04 Dec, 2012 [facility] [address] [id number] [address] [place] [address], [place] [address] 20 Nov, 2012 [facility] [address] [id number] [address] [place] [address], [place] [address] 07 Nov, 2012 [facility] [address] [id number] [address] [place] [address], [place] [address] 07 Nov, 2012 [facility] [address] [id number] [address] [place] [address], [place] [address] 06 Nov, 2012 [facility] [address] [id number] [address] [place] [address], [place] [address] 09 Oct, 2012 [facility] [address] [id number] [address] [place] [address], [place] [address] 18 Sep, 2012 [facility] [address] [id number] [address] [place] [address], [place] [address] 18 Sep, 2012 [facility] [address] [id number] [address] [place] [address], [place] [address] 17 Sep, 2012 [facility] [address] [id number] [address] [place] [address], [place] [address] 16 Sep, 2012 [facility] [address] [id number] [address] [place] [address], [place] [address] 13 Sep, 2012 [facility] [address] [id number] [address] [place] [address], [place] [address] 12 Sep, 2012 [facility] [address] [id number] [address] [place] [address], [place] [address] 12 Sep, 2012 [facility] [address] [id number] [address] [place] [address], [place] [address] 14 Aug, 2012 [facility] [address] [id number] [address] [place] [address], [place] [address] 14 Aug, 2012 [facility] [address] [id number] [address] [place] [address], [place] [address] Aug, [facility] [address] [id number] [address] [place] [address], [place] [address] Aug, [facility] [address] [id number] [address] [place] [address], [place] [address] Jul, [facility] [address] [id number] [address] [place] [address], [place] [address] Jul, [facility] [address] [id number] [address] [place] [address], [place] [address] Jul, [facility] [address] [id number] [address] [place] [address], [place] [address] 28 Jun, 2012 [facility] [address] [id number] [address] [place] [address], [place] [address] 27 Jun, 2012 [facility] [address] [id number] [address] [place] [address], [place] [address] 16 Jun, 2012 [facility] [address] [id number] [address] [place] [address], [place] [address] 14 Jun, 2012 [facility] [address] [id number] [address] [place] [address], [place] [address] 11 Jun, 2012 [facility] [address] [id number] [address] [place] [address], [place] [address] February, [facility] [address] [id number] [address] [place] [address], [place] [address] February, [facility] [address] [id number] [address] [place] [address], [place] [address] February, [facility] [address] [id number] [address] [place] [address], [place] [address] Jan, [facility] [address] [id number] [address] [place] [address], [place] [address] Jan, [facility] [address] [id number] [address] [place] [address], [place] [address] 06 Jan, 2012 [facility] [address] [id number] [address] [place] [address], [place] [address] 05 Jan, 2012 [facility] [address] [id number] [address] [place] [address], [place] [address] Jan, [facility] [address] [id number] [address] [place] [address], [place] [address] Dec, [facility] [address] [id number] [address] [place] [address], [place] [address] Dec, [facility] [address] [id number] [address] [place] [address], [place] [address] Dec, [facility] [address] [id number] [address] [place] [address], [place] [address] Dec, [facility] [address] [id number] [address] [place] [address], [place] [address] Nov, [facility] [address] [id number] [address] [place] [address], [place] [address] Jul, [facility] [address] [id number] [address] [place] [address], [place] [address] 10 Jul, 2011 [facility] [address] [id number] [address] [place] [address], [place] [address] 20 Mar, 2011 [facility] [address] [id number] [address] [place] [address], [place] [address] 13 Mar, 2011 [facility] [address] [id number] [address] [place] [address], [place] [address] 13 Jan, 2011 [facility] [address] [id number] [address] [place] [address], [place] [address] 15 Dec, 2010 [facility] [address] [id number] [address] [place] [address], [place] [address] 29 Sep, 2010 [facility] [address] [id number] [address] [place] [address], [place] [address] Sep, [facility] [address] [id number] [address] [place] [address] Sep, [facility] [address] [id number] [address] [place] [address] Sep, [facility] [address] [id number] [address] [place] [address] Sep, [facility] [address] [id number] [address] [place] [address] Aug, [facility] [address] [id number] [address] [place] [address] Aug, [facility] [address] [id number] [address] [place] [address] Jul, [facility] [address] [id number] [address] [place] [address] Jul, [facility] [address] [facility] [id number] [address] [place] [address] Jul, [facility] [address] [id number] [address] [place] [address] Nov, IMMUNIZATIONS No Known Immunizations SOCIAL HISTORY Never Assessed REASON FOR VISIT Thyroid, no new concerns- Ziyad ANDEROSN PLAN OF CARE Activity Details Follow Up 6 Months Reason:hypothyroid VITAL SIGNS Height 67 in 2017-07-14 Weight 200.6 lbs 2017-07-14 Temperature 98.4 degrees Fahrenheit 2017-07-14 Heart Rate 82 bpm 2017-07-14 Respiratory Rate 18 2017-07-14 BMI 31.41 kg/m2 2017-07-14 Blood pressure systolic 128 mmHg 2017-07-14 Blood pressure diastolic 74 mmHg 2017-07-14 MEDICATIONS Medication Instructions Dosage Frequency Start Date End Date Duration S tatus Levothyroxine Sodium 50 MCG Orally Once a day 1 tablet on an empty stomach in the morning 24h 90 Active Ibuprofen 800 MG Orally Three times a day 1 tablet with food or mil k 8h Jul, Active RESULTS No Results PROCEDURES No Known procedures INSTRUCTIONS MEDICATIONS ADMINISTERED No Known Medications MEDICAL (GENERAL) HISTORY Type Description Date Medical History Hypothryoid Surgical History Bilateral Tubal Ligation Surgical History dilatation and curettage Surgical History section x2 Hospitalization History surgeries and childbirth
--- OUTSIDE RECORDS SUMMARY | 2020-03-27 13:25 | XMS REPORT ---
Author Author Dominique Bishop Doctor Organization [facility] Address Unknown Phone Unavailable Care Team Providers Care Tower Erector Name Role Phone Migration, Doctor Unavailable Unavailable PROBLEMS Type Condition ICD9-CM Code NZN61-DZ Code Onset Dates Condition S tatus SNOMED Code Problem Acquired hypothyroidism E03.9 Active 685904032 Problem Painful menstrual periods N94.6 Acti ve 184472571 Problem Primary hypothyroidism 244.9 Apr, 0 [id number] Problem Primary hypothyroidism E03.9 Apr, 0 [id number] ALLERGIES No Information ENCOUNTERS Encounter Location Date Diagnosis [facility] [address] [place] [address] Oct, Strep pharyngitis J02.0 and Poison brenda dermatitis L23.7 [facility] [address] [id number] [address] [place] [phone] Sep, [facility] [address] [id number] [address] [place] [phone] February, Acquired hypothyroidism E03. 9 [facility] [address] [id number] [address] [place] [phone] Sep, [facility] [address] [id number] [address] [place] [address] Jul, Well woman exam Z01.419 and Cervical cancer screening Z12.4 [facility] [address] [id number] [address] [place] [phone] Jul, Acquired hypothyroidism E03. 9 ; Myalgia M79.1 and Painful menstrual periods N94.6 [facility] [address] [id number] [address] [place] [phone] Jun, Chronic seasonal allergic rh initis due to other allergen J30.2 [facility] [address] [id number] [address] [place] [phone] Mar, Acquired hypothyroidism E03. 9 [facility] [address] [facility] [id number] [address] [place] [phone] Jan, Sore throat J02.9 and Strep throat J02.0 [facility] [address] [facility] [id number] [address] [place] [phone] Jan, Scabies B86 and Sore throat J02.9 [facility] [address] [facility] [id number] [address] [place] [phone] Dec, Acquired hypothyroidism E03. 9 [facility] [address] [facility] [id number] [address] [place] [phone] Dec, Acquired hypothyroidism E03. 9 [facility] [address] [facility] [id number] [address] [place] [phone] Aug, Acquired hypothyroidism E03. 9 [facility] [address] [facility] [id number] [address] [place] [phone] May, [facility] [address] [facility] [id number] [address] [place] [address] May, Encounter to establish care Z76.89 ; Alopecia L65.9 ; Fatigue, unspecified type R53.83 ; Left wrist pain M25.532 ; Pain in right knee M25.561 and Pain in left knee M25.562 [facility] [address] [facility] [id number] [address] [place] [phone] Jan, [facility] [address] [facility] [id number] [address] [place] [phone] Jan, [facility] [address] [id number] [address] [place] [id number] Apr, [facility] [address] [facility] [id number] [address] [place] [address] Apr, [facility] [address] [id number] [address] [place] [phone] Apr, [facility] [address] [id number] [address] [place] [address], [place] [id number] Apr, [facility] [address] [id number] [address] [place] [address], [place] [id number] Dec, [facility] [address] [id number] [address] [place] [address], [place] [id number] Dec, [facility] [address] [id number] [address] [place] [address], [place] [id number] Nov, [facility] [address] [id number] [address] [place] [address], [place] [id number] Nov, [facility] [address] [id number] [address] [place] [address], [place] [id number] Nov, [facility] [address] [id number] [address] [place] [address], [place] [id number] Nov, [facility] [address] [id number] [address] [place] [address], [place] [id number] Apr, [facility] [address] [id number] [address] [place] [address], [place] [id number] February, [facility] [address] [id number] [address] [place] [address], [place] [id number] Jan, [facility] [address] [id number] [address] [place] [address], [place] [address] Jan, [facility] [address] [id number] [address] [place] [address], [place] [address] Jan, [facility] [address] [id number] [address] [place] [address], [place] [id number] Jan, [facility] [address] [id number] [address] [place] [address], [place] [id number] 17 Jan, 2013 [facility] [address] [id number] [address] [place] [address], [place] [id number] 16 Jan, 2013 [facility] [address] [id number] [address] [place] [address], [place] [id number] 15 Jan, 2013 [facility] [address] [id number] [address] [place] [address], [place] [id number] Jan, [facility] [address] [id number] [address] [place] [address], [place] [id number] 18 Dec, 2012 [facility] [address] [id number] [address] [place] [address], [place] [id number] 06 Dec, 2012 [facility] [address] [id number] [address] [place] [address], [place] [id number] 04 Dec, 2012 [facility] [address] [id number] [address] [place] [address], [place] [id number] 20 Nov, 2012 [facility] [address] [id number] [address] [place] [address], [place] [id number] 07 Nov, 2012 [facility] [address] [id number] [address] [place] [address], [place] [id number] 07 Nov, 2012 [facility] [address] [id number] [address] [place] [address], [place] [id number] 06 Nov, 2012 [facility] [address] [id number] [address] [place] [address], [place] [address] Oct, [facility] [address] [id number] [address] [place] [address], [place] [id number] 18 Sep, 2012 [facility] [address] [id number] [address] [place] [address], [place] [id number] 18 Sep, 2012 [facility] [address] [id number] [address] [place] [address], [place] [id number] 17 Sep, 2012 [facility] [address] [id number] [address] [place] [address], [place] [id number] 16 Sep, 2012 [facility] [address] [id number] [address] [place] [address], [place] [id number] 13 Sep, 2012 [facility] [address] [id number] [address] [place] [address], [place] [id number] 12 Sep, 2012 [facility] [address] [id number] [address] [place] [address], [place] [id number] Sep, [facility] [address] [id number] [address] [place] [address], [place] [id number] Aug, [facility] [address] [id number] [address] [place] [address], [place] [id number] Aug, [facility] [address] [id number] [address] [place] [address], [place] [id number] Aug, [facility] [address] [id number] [address] [place] [address], [place] [id number] Aug, [facility] [address] [id number] [address] [place] [address], [place] [id number] Jul, [facility] [address] [id number] [address] [place] [address], [place] [id number] Jul, [facility] [address] [id number] [address] [place] [address], [place] [id number] Jul, [facility] [address] [id number] [address] [place] [address], [place] [id number] 28 Jun, 2012 [facility] [address] [id number] [address] [place] [address], [place] [id number] 27 Jun, 2012 [facility] [address] [id number] [address] [place] [address], [place] [id number] 16 Jun, 2012 [facility] [address] [id number] [address] [place] [address], [place] [id number] 14 Jun, 2012 [facility] [address] [id number] [address] [place] [address], [place] [id number] 11 Jun, 2012 [facility] [address] [id number] [address] [place] [address], [place] [id number] February, [facility] [address] [id number] [address] [place] [address], [place] [id number] February, [facility] [address] [id number] [address] [place] [address], [place] [address] February, [facility] [address] [id number] [address] [place] [address], [place] [id number] Jan, [facility] [address] [id number] [address] [place] [address], [place] [id number] Jan, [facility] [address] [id number] [address] [place] [address], [place] [id number] Jan, [facility] [address] [id number] [address] [place] [address], [place] [id number] Jan, [facility] [address] [id number] [address] [place] [address], [place] [address] Jan, [facility] [address] [id number] [address] [place] [address], [place] [id number] Dec, [facility] [address] [id number] [address] [place] [address], [place] [address] Dec, [facility] [address] [id number] [address] [place] [address], [place] [address] Dec, [facility] [address] [id number] [address] [place] [address], [place] [address] Dec, [facility] [address] [id number] [address] [place] [address], [place] [id number] Nov, [facility] [address] [id number] [address] [place] [address], [place] [address] Jul, [facility] [address] [id number] [address] [place] [address], [place] [id number] Jul, [facility] [address] [id number] [address] [place] [address], [place] [id number] Mar, [facility] [address] [id number] [address] [place] [address], [place] [address] Mar, [facility] [address] [id number] [address] [place] [address], [place] [id number] Jan, [facility] [address] [id number] [address] [place] [id number] 15 Dec, 2010 [facility] [address] [id number] [address] [place] [phone] Sep, [facility] [address] [id number] [address] [place] [phone] Sep, [facility] [address] [id number] [address] [place] [phone] Sep, [facility] [address] [id number] [address] [place] [phone] Sep, [facility] [address] [id number] [address] [place] [id number] Sep, [facility] [address] [id number] [address] [place] [phone] Aug, [facility] [address] [id number] [address] [place] [phone] Aug, [facility] [address] [id number] [address] [place] [phone] Jul, [facility] [address] [id number] [address] [place] [phone] Jul, [facility] [address] [id number] [address] [place] [id number] Jul, [facility] [address] [id number] [address] [place] [phone] Nov, IMMUNIZATIONS No Known Immunizations SOCIAL HISTORY Never Assessed REASON FOR VISIT [place]MR[place] [place]AN OF CARE VITAL SIGNS MEDICATIONS No Known Medications RESULTS No Results PROCEDURES No Known procedures INSTRUCTIONS MEDICATIONS ADMINISTERED No Known Medications MEDICAL (GENERAL) HISTORY Type Description Date Medical History Hypothryoid Surgical History Bilateral Tubal Ligation Surgical History dilatation and curettage Surgical History section x2 Hospitalization History surgeries and childbirth Hospitalization History [facility] Gastritous 01/16/2018
--- OUTSIDE RECORDS SUMMARY | 2020-03-27 13:25 | XMS REPORT | Continuity of Care Document ---
Author Author [facility] Organization [facility] Address Unknown Phone Unavailable Support Name Relationship Address Phone CRYSTAL WHITE Next Of Kin [address] [place] [address] Insurance Providers Payer Name Policy Number Subscriber Name Relationship [facility] [employer] [id number] Dominique White 01 Self / Same As Patient Advance Directives Directive Response Recor ded Date Advance Directives N 9:51am Health Care Power of Microsoft Exchange Administrator N 01/06/13 8:37pm Organ Donor Y 02/21/13 9 :51am Problems No Known Problems or Medical conditions. Family History History Response Recorde d Date/Time Hx Family Cancer Y 02/21 9:51am Hx Family Lung Cancer Y maternal gpa 02/21/13 9:51am Hx Family Colorectal Cancer N 02/21/13 9:51am Social History History Response Recorde d Date/Time Alcohol Use Denies Use 0 02/21/13 9:51am Recreational Drug Use N 02/21/13 9:51am Recent Foreign Travel N 02/21/13 9:51am Recent Infectious Disease Exposure N 02/21/13 9:51am Hospitalization with Isolation Denies 02/23/13 4:53pm Allergies, Adverse Reactions, Alerts Allergen Type Severity Reaction Last Updated Penicillins Allergy Mild RASH 12/07/12 Medications Medication Dose Units Route Sig Qty Days Docusate Sodium (Colace Cap) 100 Mg PO BID 60 Acetaminophen/Hydrocodone Bitart (Lorcet 5/325 Mg) 1 - 2 Tab PO q 4-6 hrs prn PRN 45 Ibuprofen (Motrin) 600 Mg PO Q6HR 40 Levothyroxine Sodium (Levothyroxine 50 Mcg Tab) 150 Mg PO DAILY Vits W-Ca,Fe,Fa(<1MG) () 1 Each PO DAILY Hydrocodone Bit/Acetaminophen (Hydrocodo n-Acetaminophen 5-325) 1 - 2 Tab PO Q4H PRN 20 Metronidazole (Flagyl 500 Mg) 1 Each PO BID 14 Trimethoprim/Sulfamethoxazole (Bactrim Ds) 1 Ea PO BID 14 Naproxen Sodium (Anaprox Ds) 550 Mg PO BID Acetaminophen/Hydrocodone Bitart (Lortab 5 Mg) 1 - 2 Ea PO Q4HR PRN Ibuprofen (Motrin) 800 Mg PO Q8H Levothyroxine Sodium (Levothroid) 1 Tab PO DAILY Immunizations Name Given Type DTaP 02/22/13 A influenza, split (incl. purified surface antigen) 12/07/12 A Response Recorded Date/Time Status not known Unknown Results Test Date Result Interp. Ref. Range Alanine Aminotransferase (ALT/SGPT) January 19, 2012 11:17am 39 U/L N 30-65 Albumin January 19, 2012 11:17am 3.3 G/DL L 3.4-5.0 Alkaline Phosphatase January 19, 2012 11:17a m 100 U/L N 50-136 Aspartate Amino Transf (AST/SGOT) Ap 2011 11:17am 15 U/L N 15-37 BUN/Creatinine Ratio February 15, 2013 1:00pm 8 - Band Neutrophils December 15, 2010 9:29pm 0 % - Basophils # (Auto) February 15, 2013 1:00pm 0.0 10^3/uL N 0.0-0.1 Basophils (%) (Auto) February 15, 2013 1:00pm 0 % N 0-10 Blood Urea Nitrogen February 15, 2013 1:00pm 5 MG/DL L 7-18 C-Reactive Protein December 07, 2012 6:46a m 0.8 MG/DL N 0.2-0.9 Calcium Level February 15, 2013 1:00pm 8.2 MG/DL L 8.5-10.1 Carbon Dioxide Level February 15, 2013 1:00pm 26 MMOL/L N 21-32 Chloride Level February 15, 2013 1:00pm 106 MMOL/L N 101-110 Clumped Platelets December 15, 2010 9:29pm SLIGHT - Creatinine February 15, 2013 1:00pm 0.6 MG/DL N 0.6-1.3 Eosinophils # (Auto) February 15, 2013 1:00pm 0.0 10^3/uL N 0.0-0.3 Eosinophils (%) (Auto) February 15, 2013 1:00pm 1 % N 0-10 Glucose Level February 15, 2013 1:00pm 83 MG/DL N 74-106 Hematocrit February 15, 2013 1:00pm 37 % N 35-52 Hemoglobin February 15, 2013 1:00pm 12.5 G/DL N 11.5-16.0 Lymphocytes # (Auto) February 15, 2013 1:00pm 1.3 X 10^3 N 1.0-4.0 Lymphocytes % (Manual) December 15 1 9:29pm 8 % - Lymphocytes (%) (Auto) February 15, 2013 1:00pm 19 % N 12-44 Magnesium Level April 01, 2011 6:13am 1.3 MG/DL L 1.8-2.4 Mean Corpuscular Hemoglobin February 15, 2013 1:00pm 32 PG N 25-34 Mean Corpuscular Hemoglobin Concent February 15, 2013 1:00pm 34 G/DL N 32-36 Mean Corpuscular Volume February 15, 2013 1:00p m 92 FL N 80-99 Mean Platelet Volume February 15, 2013 1:00pm 10.6 FL H 7.4-10.4 Monocytes # (Auto) February 15, 2013 1:00pm 0.5 X 10^3 N 0.0-1.0 Monocytes % (Manual) December 15, 2010 9:29pm 4 % - Monocytes (%) (Auto) February 15, 2013 1:00pm 8 % N 0-12 Neutrophils # (Auto) February 15, 2013 1:00pm 5.0 X 10^3 N 1.8-7.8 Neutrophils % (Manual) December 15 1 9:29pm 88 % - Neutrophils (%) (Auto) February 15, 2013 1:00pm 73 % N 42-75 Platelet Count February 15, 2013 1:00pm 185 10^3/uL N 130-400 Potassium Level February 15, 2013 1:00pm 3.3 MMOL/L L 3.6-5.0 Red Blood Count February 15, 2013 1:00pm 3.97 10^6/uL L 4.35-5.85 Red Cell Distribution Width February 15, 2013 1:00pm 13.3 % N 10.0-14.5 Sodium Level February 15, 2013 1:00pm 142 MMOL/L N 135-145 Total Bilirubin January 19, 2012 11:17am 0.4 MG/DL N 0.0-1.0 Total Protein January 19, 2012 11:17am 7.1 G/DL N 6.4-8.2 Urine Amorphous Sediment January 06, 2 013 8:45pm LARGE MARTA PHOSPHATE /LPF H - Urine Bacteria February 15, 2013 1:00pm FEW /HPF H - Urine Bilirubin February 15, 2013 1:00pm NEGATIVE - Urine Casts February 15, 2013 1:00pm NONE /LPF - Urine Clarity February 15, 2013 1:00pm SLIGHTLY CLOUDY - Urine Color February 15, 2013 1:00pm YELLOW - Urine Crystals February 15, 2013 1:00pm NONE /LPF - Urine Culture Indicated February 15, 2013 1:00p m NO - Urine Glucose (UA) February 15, 2013 1:00pm NEGATIVE - Urine Ketones February 15, 2013 1:00pm NEGATIVE - Urine Leukocyte Esterase February 15, 3 1:00pm 2+ H - Urine Mucus February 15, 2013 1:00pm NEGATIVE /LPF - Urine Nitrite February 15, 2013 1:00pm NEGATIVE - Urine Protein February 15, 2013 1:00pm NEGATIVE - Urine RBC February 15, 2013 1:00pm RARE /HPF - Urine Specific [place] February 15, 2013 1:00pm 1.015 L - Urine Squamous Epithelial Cells February 15, 2013 1:00pm 10-25 /HPF H - Urine Urobilinogen February 15, 2013 1:00pm NORMAL MG/DL - Urine WBC February 15, 2013 1:00pm 2-5 /HPF - Urine pH February 15, 2013 1:00pm 8 - White Blood Count February 15, 2013 1:00pm 6.9 10^3/uL N 4.3-11.0 Estimat Glomerular Filtration Rate M 2012 1:00pm > 60 - Urine RBC (Auto) February 15, 2013 1:00pm NEGATIVE - Procedures Procedure Code Date LOW CERVICAL 74.1 03/31/11 CARE OF [place]IS[place] 30718 01/20/12 MRSA Screen 02/15/13 Urine Culture 01/06/13 Encounters Encounter Location Date/ Time Discharged Inpatient [facility] 02/21/13 8:51am Departed Emergency Room [facility] 12:00am
--- OUTSIDE RECORDS SUMMARY | 2020-03-27 13:25 | XMS REPORT ---
Author Author Dominique Bishop Doctor Organization [facility] Address Unknown Phone Unavailable Care Team Providers Care Community Services Manager Name Role Phone Migration, Doctor Unavailable Unavailable PROBLEMS Type Condition ICD9-CM Code [id number] Code Onset Dates Condition S tatus SNOMED Code Problem Acquired hypothyroidism E03.9 Active 782530018 Problem Painful menstrual periods N94.6 Acti ve 927667522 Problem Primary hypothyroidism 244.9 Apr, 0 772699833 Problem Primary hypothyroidism E03.9 Apr, 0 [id number] ALLERGIES No Information ENCOUNTERS Encounter Location Date Diagnosis [facility] [address] [place] [address] Oct, Strep pharyngitis J02.0 and Poison brenda dermatitis L23.7 [facility] [address] [id number] [address] [place] [address] Sep, [facility] [address] [id number] [address] [place] [address] February, Acquired hypothyroidism E03. 9 [facility] [address] [id number] [address] [place] [address] Sep, [facility] [address] [id number] [address] [place] [address] Jul, Well woman exam Z01.419 and Cervical cancer screening Z12.4 [facility] [address] [id number] [address] [place] [address] Jul, Acquired hypothyroidism E03. 9 ; Myalgia M79.1 and Painful menstrual periods N94.6 [facility] [address] [id number] [address] [place] [address] Jun, Chronic seasonal allergic rh initis due to other allergen J30.2 [facility] [address] [id number] [address] [place] [address] Mar, Acquired hypothyroidism E03. 9 [facility] [address] [facility] [id number] [address] [place] [address] Jan, Sore throat J02.9 and Strep throat J02.0 [facility] [address] [facility] [id number] [address] [place] [address] Jan, Scabies B86 and Sore throat J02.9 [facility] [address] [facility] [id number] [address] [place] [address] Dec, Acquired hypothyroidism E03. 9 [facility] [address] [facility] [id number] [address] [place] [address] Dec, Acquired hypothyroidism E03. 9 [facility] [address] [facility] [id number] [address] [place] [address] Aug, Acquired hypothyroidism E03. 9 [facility] [address] [facility] [id number] [address] [place] [address] May, [facility] [address] [facility] [id number] [address] [place] [address] May, Encounter to establish care Z76.89 ; Alopecia L65.9 ; Fatigue, unspecified type R53.83 ; Left wrist pain M25.532 ; Pain in right knee M25.561 and Pain in left knee M25.562 [facility] [address] [facility] [id number] [address] [place] [address] Jan, [facility] [address] [facility] [id number] [address] [place] [address] Jan, [facility] [address] [id number] [address] [place] [address] Apr, [facility] [address] [facility] [id number] [address] [place] [address] Apr, [facility] [address] [id number] [address] [place] [address] Apr, [facility] [address] [id number] [address] [place] [address], [place] [address] Apr, [facility] [address] [id number] [address] [place] [address], [place] [address] Dec, [facility] [address] [id number] [address] [place] [address], [place] [address] Dec, [facility] [address] [id number] [address] [place] [address], [place] [address] Nov, [facility] [address] [id number] [address] [place] [address], [place] [address] Nov, [facility] [address] [id number] [address] [place] [address], [place] [address] Nov, [facility] [address] [id number] [address] [place] [address], [place] [address] Nov, [facility] [address] [id number] [address] [place] [address], [place] [address] Apr, [facility] [address] [id number] [address] [place] [address], [place] [address] February, [facility] [address] [id number] [address] [place] [address], [place] [address] Jan, [facility] [address] [id number] [address] [place] [address], [place] [address] Jan, [facility] [address] [id number] [address] [place] [address], [place] [address] Jan, [facility] [address] [id number] [address] [place] [address], [place] [address] Jan, [facility] [address] [id number] [address] [place] [address], [place] [address] 17 Jan, 2013 [facility] [address] [id number] [address] [place] [address], [place] [address] 16 Jan, 2013 [facility] [address] [id number] [address] [place] [address], [place] [address] 15 Jan, 2013 [facility] [address] [id number] [address] [place] [address], [place] [address] Jan, [facility] [address] [id number] [address] [place] [address], [place] [address] 18 Dec, 2012 [facility] [address] [id number] [address] [place] [address], [place] [address] 06 Dec, 2012 [facility] [address] [id number] [address] [place] [address], [place] [address] 04 Dec, 2012 [facility] [address] [id number] [address] [place] [address], [place] [address] 20 Nov, 2012 [facility] [address] [id number] [address] [place] [address], [place] [address] 07 Nov, 2012 [facility] [address] [id number] [address] [place] [address], [place] [address] 07 Nov, 2012 [facility] [address] [id number] [address] [place] [address], [place] [address] 06 Nov, 2012 [facility] [address] [id number] [address] [place] [address], [place] [address] Oct, [facility] [address] [id number] [address] [place] [address], [place] [address] 18 Sep, 2012 [facility] [address] [id number] [address] [place] [address], [place] [address] 18 Sep, 2012 [facility] [address] [id number] [address] [place] [address], [place] [address] 17 Sep, 2012 [facility] [address] [id number] [address] [place] [address], [place] [address] 16 Sep, 2012 [facility] [address] [id number] [address] [place] [address], [place] [address] 13 Sep, 2012 [facility] [address] [id number] [address] [place] [address], [place] [address] 12 Sep, 2012 [facility] [address] [id number] [address] [place] [address], [place] [address] Sep, [facility] [address] [id number] [address] [place] [address], [place] [address] Aug, [facility] [address] [id number] [address] [place] [address], [place] [address] Aug, [facility] [address] [id number] [address] [place] [address], [place] [address] Aug, [facility] [address] [id number] [address] [place] [address], [place] [address] Aug, [facility] [address] [id number] [address] [place] [address], [place] [address] Jul, [facility] [address] [id number] [address] [place] [address], [place] [address] Jul, [facility] [address] [id number] [address] [place] [address], [place] [address] Jul, [facility] [address] [id number] [address] [place] [address], [place] [address] 28 Jun, 2012 [facility] [address] [id number] [address] [place] [address], [place] [address] 27 Jun, 2012 [facility] [address] [id number] [address] [place] [address], [place] [address] 16 Jun, 2012 [facility] [address] [id number] [address] [place] [address], [place] [address] 14 Jun, 2012 [facility] [address] [id number] [address] [place] [address], [place] [address] 11 Jun, 2012 [facility] [address] [id number] [address] [place] [address], [place] [address] February, [facility] [address] [id number] [address] [place] [address], [place] [address] February, [facility] [address] [id number] [address] [place] [address], [place] [address] February, [facility] [address] [id number] [address] [place] [address], [place] [address] Jan, [facility] [address] [id number] [address] [place] [address], [place] [address] Jan, [facility] [address] [id number] [address] [place] [address], [place] [address] Jan, [facility] [address] [id number] [address] [place] [address], [place] [address] Jan, [facility] [address] [id number] [address] [place] [address], [place] [address] Jan, [facility] [address] [id number] [address] [place] [address], [place] [address] Dec, [facility] [address] [id number] [address] [place] [address], [place] [address] Dec, [facility] [address] [id number] [address] [place] [address], [place] [address] Dec, [facility] [address] [id number] [address] [place] [address], [place] [address] Dec, [facility] [address] [id number] [address] [place] [address], [place] [address] Nov, [facility] [address] [id number] [address] [place] [address], [place] [address] Jul, [facility] [address] [id number] [address] [place] [address], [place] [address] Jul, [facility] [address] [id number] [address] [place] [address], [place] [address] Mar, [facility] [address] [id number] [address] [place] [address], [place] [address] Mar, [facility] [address] [id number] [address] [place] [address], [place] [address] Jan, [facility] [address] [id number] [address] [place] [address] 15 Dec, 2010 [facility] [address] [id number] [address] [place] [address] Sep, [facility] [address] [id number] [address] [place] [address] Sep, [facility] [address] [id number] [address] [place] [address] Sep, [facility] [address] [id number] [address] [place] [address] Sep, [facility] [address] [id number] [address] [place] [address] Sep, [facility] [address] [id number] [address] [place] [address] Aug, [facility] [address] [id number] [address] [place] [address] Aug, [facility] [address] [id number] [address] [place] [address] Jul, [facility] [address] [id number] [address] [place] [address] Jul, [facility] [address] [id number] [address] [place] [address] Jul, [facility] [address] [id number] [address] [place] [address] Nov, IMMUNIZATIONS No Known Immunizations SOCIAL HISTORY Never Assessed REASON FOR VISIT EMR-[facility] PLAN OF CARE VITAL SIGNS MEDICATIONS No Known Medications RESULTS No Results PROCEDURES No Known procedures INSTRUCTIONS MEDICATIONS ADMINISTERED No Known Medications MEDICAL (GENERAL) HISTORY Type Description Date Medical History Hypothryoid Surgical History Bilateral Tubal Ligation Surgical History dilatation and curettage Surgical History section x2 Hospitalization History surgeries and childbirth Hospitalization History [facility] 01/16/2018
--- OUTSIDE RECORDS SUMMARY | 2020-03-27 13:25 | XMS REPORT ---
Author Author Dominique VYAS Organization [facility] Address [address] [place] [address] Care Team Providers Care Framing Mechanic Name Role Phone BOLIVAR VYAS Unavailable PROBLEMS Type Condition ICD9-CM Code VHH45-DI Code Onset Dates Condition S tatus SNOMED Code Problem Painful menstrual periods N94.6 Acti ve 137349173 Problem Acquired hypothyroidism E03.9 Active [id number] ALLERGIES Substance Reaction Event Type Date Status Penicillin V Potassium Unknown Drug Allergy February, Activ e ENCOUNTERS Encounter Location Date Diagnosis [address] [id number] February, Acquired hypothyroidism E03. 9 [place] [id number] [place] [phone] Jul, Well woman exam Z01.419 and Cervical cancer screening Z12.[address] [address] Jul, Acquired hypothyroidism E03. 9 ; Myalgia M79.1 and Painful menstrual periods N94.6 [facility] [address] [id number] [address] [place] [phone] Jun, Chronic seasonal allergic rh initis due to other allergen J30.2 [place] [address] [place] [id number] [address] [place] [phone] Mar, Acquired hypothyroidism E03. 9 [facility] [address] [id number] [address] [place] [phone] Jan, Sore throat J02.9 and Strep throat J02.0 [facility] [address] [id number] [address] [place] [phone] Jan, Scabies B86 and Sore throat J02.9 [facility] [address] [id number] [address] [place] [phone] Dec, Acquired hypothyroidism E03. 9 [facility] [address] [id number] [address] [place] [phone] Dec, Acquired hypothyroidism E03. 9 [facility] [address] [id number] [address] [place] [phone] Aug, Acquired hypothyroidism E03. 9 [facility] [address] [id number] [address] [place] [phone] May, [facility] [address] [id number] [address] [place] [phone] May, Encounter to establish care Z76.89 ; Alopecia L65.9 ; Fatigue, unspecified type R53.83 ; Left wrist pain M25.532 ; Pain in right knee M25.561 and Pain in left knee M25.562 [facility] [address] [id number] [address] [place] [phone] Jan, [facility] [address] [id number] [address] [place] [phone] Jan, [facility] [address] [facility] [id number] [address] [place] [phone] Apr, [facility] [address] [id number] [address] [place] [id number] Apr, [facility] [address] [id number] [address] [place] [id number] Apr, [facility] [address] [facility] [id number] [address] [place] [phone] Apr, [facility] [address] [facility] [id number] [address] [place] [phone] Dec, [facility] [address] [facility] [id number] [address] [place] [phone] Dec, [facility] [address] [id number] [facility] [place] [address] Nov, [facility] [address] [id number] [address] [place] [address], [place] [address] Nov, [facility] [address] [id number] [address] [place] [address], [place] [address] Nov, [facility] [address] [id number] [address] [place] [address], [place] [address] Nov, [facility] [address] [id number] [address] [place] [address], [place] [address] Apr, [facility] [address] [id number] [address] [place] [address], [place] [address] February, [facility] [address] [id number] [address] [place] [address], [place] [address] Jan, [facility] [address] [id number] [address] [place] [address], [place] [address] Jan, [facility] [address] [id number] [address] [place] [address], [place] [address] Jan, [facility] [address] [id number] [address] [place] [address], [place] [address] Jan, [facility] [address] [id number] [address] [place] [address], [place] [address] Jan, [facility] [address] [id number] [address] [place] [address], [place] [phone] 16 Jan, 2013 [facility] [address] [id number] [address] [place] [address], [place] [address] 15 Jan, 2013 [facility] [address] [id number] [address] [place] [address], [place] [phone] Jan, [facility] [address] [id number] [address] [place] [address], [place] [address] Dec, [facility] [address] [id number] [address] [place] [address], [place] [address] 06 Dec, 2012 [facility] [address] [id number] [address] [place] [address], [place] [address] 04 Dec, 2012 [facility] [address] [id number] [address] [place] [address], [place] [address] 20 Nov, 2012 [facility] [address] [id number] [address] [place] [address], [place] [phone] 07 Nov, 2012 [facility] [address] [id number] [address] [place] [address], [place] [address] 07 Nov, 2012 [facility] [address] [id number] [address] [place] [address], [place] [address] 06 Nov, 2012 [facility] [address] [id number] [address] [place] [address], [place] [address] 09 Oct, 2012 [facility] [address] [id number] [address] [place] [address], [place] [address] 18 Sep, 2012 [facility] [address] [id number] [address] [place] [address], [place] [address] 18 Sep, 2012 [facility] [address] [id number] [address] [place] [address], [place] [address] 17 Sep, 2012 [facility] [address] [id number] [address] [place] [address], [place] [address] 16 Sep, 2012 [facility] [address] [id number] [address] [place] [address], [place] [address] 13 Sep, 2012 [facility] [address] [id number] [address] [place] [address], [place] [address] 12 Sep, 2012 [facility] [address] [id number] [address] [place] [address], [place] [address] 12 Sep, 2012 [facility] [address] [id number] [address] [place] [address], [place] [address] 14 Aug, 2012 [facility] [address] [id number] [address] [place] [address], [place] [address] Aug, [facility] [address] [id number] [address] [place] [address], [place] [address] Aug, [facility] [address] [id number] [address] [place] [address], [place] [address] Aug, [facility] [address] [id number] [address] [place] [address], [place] [address] 08 Jul, 2012 [facility] [address] [id number] [address] [place] [address], [place] [address] Jul, [facility] [address] [id number] [address] [place] [address], [place] [address] Jul, [facility] [address] [id number] [address] [place] [address], [place] [address] 28 Jun, 2012 [facility] [address] [id number] [address] [place] [address], [place] [address] 27 Jun, 2012 [facility] [address] [id number] [address] [place] [address], [place] [address] 16 Jun, 2012 [facility] [address] [id number] [address] [place] [address], [place] [address] 14 Jun, 2012 [facility] [address] [id number] [address] [place] [phone] 11 Jun, 2012 [facility] [address] [id number] [address] [place] [address], [place] [address] February, [facility] [address] [id number] [address] [place] [phone] February, [facility] [address] [id number] [address] [place] [address], [place] [address] February, [facility] [address] [id number] [address] [place] [address], [place] [address] Jan, [facility] [address] [id number] [address] [place] [phone] Jan, [facility] [address] [id number] [address] [place] [phone] 06 Jan, 2012 [facility] [address] [id number] [address] [place] [address], [place] [address] 05 Jan, 2012 [facility] [address] [id number] [address] [place] [address], [place] [address] 03 Jan, 2012 [facility] [address] [id number] [address] [place] [address], [place] [address] 19 Dec, 2011 [facility] [address] [id number] [address] [place] [address], [place] [address] 12 Dec, 2011 [facility] [address] [id number] [address] [place] [address], [place] [address] Dec, [facility] [address] [id number] [address] [place] [address], [place] [address] Dec, [facility] [address] [id number] [address] [place] [address], [place] [address] 29 Nov, 2011 [facility] [address] [id number] [address] [place] [address], [place] [address] Jul, [facility] [address] [id number] [address] [place] [address], [place] [address] 10 Jul, 2011 [facility] [address] [id number] [address] [place] [address], [place] [address] 20 Mar, 2011 [facility] [address] [id number] [address] [place] [address], [place] [address] 13 Mar, 2011 [facility] [address] [id number] [address] [place] [address], [place] [address] 13 Jan, 2011 [facility] [address] [id number] [address] [place] [address], [place] [address] 15 Dec, 2010 [facility] [address] [id number] [address] [place] [address], [place] [address] 29 Sep, 2010 [facility] [address] [id number] [address] [place] [address], [place] [address] Sep, [facility] [address] [id number] [address] [place] [phone] Sep, [facility] [address] [id number] [address] [place] [phone] Sep, [facility] [address] [id number] [address] [place] [phone] Sep, [facility] [address] [id number] [address] [place] [id number] Aug, [facility] [address] [id number] [address] [place] [phone] Aug, [facility] [address] [id number] [address] [place] [phone] Jul, [facility] [address] [id number] [address] [place] [phone] Jul, [facility] [address] [id number] [address] [place] [phone] Jul, [facility] [address] [id number] [address] [place] [phone] Nov, IMMUNIZATIONS No Known Immunizations SOCIAL HISTORY Never Assessed REASON FOR VISIT Danisha -Camron ANDERSON PLAN OF CARE Activity Details Follow Up 1 Year Reason: VITAL SIGNS Height 67 in 2018-02-23 Weight 217.1 lbs 2018-02-23 Temperature 98.9 degrees Fahrenheit 2018-02-23 Heart Rate 80 bpm 2018-02-23 Respiratory Rate 20 2018-02-23 BMI 34.00 kg/m2 2018-02-23 Blood pressure systolic 118 mmHg 2018-02-23 Blood pressure diastolic 72 mmHg 2018-02-23 MEDICATIONS Medication Instructions Dosage Frequency Start Date End Date Duration S tatus Levothyroxine Sodium 50 MCG Orally Once a day 1 tablet on an empty stomach in the morning 24h 90 Active Ibuprofen 800 MG Orally Three times a day 1 tablet with food or mil k 8h Jul, Active RESULTS No Results PROCEDURES Procedure Date Ordered Result Body Site LAB NOT BILLED BY [facility] February 23, 2018 GAVIN CLEMENTS* February 23, 2018 INSTRUCTIONS MEDICATIONS ADMINISTERED No Known Medications MEDICAL (GENERAL) HISTORY Type Description Date Medical History Hypothryoid Surgical History Bilateral Tubal Ligation Surgical History dilatation and curettage Surgical History section x2 Hospitalization History surgeries and childbirth Hospitalization History [facility] 01/16/2018
--- OUTSIDE RECORDS SUMMARY | 2020-03-27 13:26 | XMS REPORT | Continuity of Care Document ---
Demographics Preferred Language Unknown Marital Status Unknown Zoroastrianism Affiliation Unknown Race Unknown Ethnic Group Unknown Author Organization Unknown Address Unknown Phone Unavailable Allergies Active Description Code Type Severity Reaction Onset Reported/Identified Relationship to Patient Clinical Status Yes PENICILLINS UNKNOWN UNKNOWN Yes Penicillins Drug Allergy 11/29/2008 Yes Penicillins Drug Allergy N/A N/A 11/29/2008 Yes Penicillins [id number] Drug Aller gy Mild RASH 12/07/2012 Yes furosemide [id number] Drug Allerg y Mild RASH 03/22/2020 Medications Medication Packaging Start Date St op Date Route Dosage Sig TETANUS,DIPTH,PERT ADULT INJ 0 (ADACEL SYRINGE) ml 05/15/2017 05/15/2017 ONCE&0130 TOBRAMYCIN EYE DROP DRP 0.3 % (TOBREX EYE DROP) drop 03/19/2020 03/19/2020 ONCE&1957 FLUOR I STRIP OPHTH PKT 1 MG MG 03/19/2020 03/19/2020 ONCE&1957 EYE WASH IRRIGATION LIQ (EYE WASH) sybil 03/19/2020 03/19/2020 ONCE&1957 TETRACAINE EYE DROP DRP 0.5 % drop 03/19/2020 03/19/2020 ONCE&1957 Problems Date Dx Coded Attending Type Code Diagnosis Diagnosed By 10/16/2008 KALPESH STONE DO 244.9 HYPOTHYROIDISM 10/16/2008 KALPESH STONE DO 244.9 HYPOTHYROIDISM 10/16/2008 244.9 HYPO THYROIDISM 10/16/2008 KALPESH STONE DO 244.9 HYPOTHYROIDISM 10/16/2008 244.9 HYPO THYROIDISM 10/16/2008 244.9 HYPO THYROIDISM 10/16/2008 244.9 HYPO THYROIDISM 10/16/2008 244.9 HYPO THYROIDISM 10/16/2008 244.9 HYPO THYROIDISM 10/16/2008 244.9 HYPO THYROIDISM 10/16/2008 244.9 HYPO THYROIDISM 10/16/2008 244.9 HYPO THYROIDISM 10/16/2008 JENNI MISHRA APRN A 24 4.9 HYPOTHYROIDISM 10/16/2008 JENNI MISHRA APRN A 24 4.9 HYPOTHYROIDISM 10/16/2008 GIO MD, CARLOS N 244 .9 HYPOTHYROIDISM 11/29/2008 STONE DO, KALPESH K 611.72 Lump Or Mass In Breast 11/29/2008 STONE DO, KALPESH K V72.31 Routine Gynecological Examination 11/29/2008 STONE DO, KALPESH K 611.72 Lump Or Mass In Breast 11/29/2008 STONE DO, KALPESH K V72.31 Routine Gynecological Examination 11/29/2008 611.72 Lum p Or Mass In Breast 11/29/2008 V72.31 Rou nery Gynecological Examination 11/29/2008 STONE DO, KALPESH K 611.72 Lump Or Mass In Breast 11/29/2008 STONE DO, KALPESH K V72.31 Routine Gynecological Examination 11/29/2008 611.72 Lum p Or Mass In Breast 11/29/2008 V72.31 Rou nery Gynecological Examination 11/29/2008 611.72 Lum p Or Mass In Breast 11/29/2008 V72.31 Rou nery Gynecological Examination 11/29/2008 611.72 Lum p Or Mass In Breast 11/29/2008 V72.31 Rou nery Gynecological Examination 11/29/2008 611.72 Lum p Or Mass In Breast 11/29/2008 V72.31 Rou nery Gynecological Examination 11/29/2008 611.72 Lum p Or Mass In Breast 11/29/2008 V72.31 Rou nery Gynecological Examination 11/29/2008 611.72 Lum p Or Mass In Breast 11/29/2008 V72.31 Rou nery Gynecological Examination 11/29/2008 611.72 Lum p Or Mass In Breast 11/29/2008 V72.31 Rou nery Gynecological Examination 11/29/2008 611.72 Lum p Or Mass In Breast 11/29/2008 V72.31 Rou nery Gynecological Examination 11/29/2008 TAD LAUREN JENNI A 611.72 Lump Or Mass In Breast 11/29/2008 JENNI MISHRA APRN A V72.31 Routine Gynecological Examination 11/29/2008 JENNI MISHRA APRN A 611.72 Lump Or Mass In Breast 11/29/2008 TAD LAUREN JENNI A V72.31 Routine Gynecological Examination 11/29/2008 CARLOS POWERS MD 611 .72 Lump Or Mass In Breast 11/29/2008 CARLOS POWERS MD V72 .31 Routine Gynecological Examination 01/18/2009 KALPESH STONE DO V72.41 Test Negative Result 01/18/2009 KALPESH STONE DO V72.41 Test Negative Result 01/18/2009 V72.41 Pre gnancy Test Negative Result 01/18/2009 KALPESH STONE DO V72.41 Test Negative Result 01/18/2009 V72.41 Pre gnancy Test Negative Result 01/18/2009 V72.41 Pre gnancy Test Negative Result 01/18/2009 V72.41 Pre gnancy Test Negative Result 01/18/2009 V72.41 Pre gnancy Test Negative Result 01/18/2009 V72.41 Pre gnancy Test Negative Result 01/18/2009 V72.41 Pre gnancy Test Negative Result 01/18/2009 V72.41 Pre gnancy Test Negative Result 01/18/2009 V72.41 Pre gnancy Test Negative Result 01/18/2009 JENNI MISHRA APRN V72.41 Test Negative Result 01/18/2009 JENNI MISHRA APRN V72.41 Test Negative Result 01/18/2009 CARLOS POWERS MD V72 .41 Test Negative Result 04/10/2009 KALPESH STONE DO 078.11 CONDYLOMA ACUMINATUM 04/10/2009 KALPESH STONE DO 078.11 CONDYLOMA ACUMINATUM 04/10/2009 078.11 CON DYLOMA ACUMINATUM 04/10/2009 KALPESH STONE DO 078.11 CONDYLOMA ACUMINATUM 04/10/2009 078.11 CON DYLOMA ACUMINATUM 04/10/2009 078.11 CON DYLOMA ACUMINATUM 04/10/2009 078.11 CON DYLOMA ACUMINATUM 04/10/2009 078.11 CON DYLOMA ACUMINATUM 04/10/2009 078.11 CON DYLOMA ACUMINATUM 04/10/2009 078.11 CON DYLOMA ACUMINATUM 04/10/2009 078.11 CON DYLOMA ACUMINATUM 04/10/2009 078.11 CON DYLOMA ACUMINATUM 04/10/2009 JENNI MISHRA APRN 078.11 CONDYLOMA ACUMINATUM 04/10/2009 TAD APRN, JENNI A 078.11 CONDYLOMA ACUMINATUM 04/10/2009 GIO ELLIOTT, CARLOS N 078 .11 CONDYLOMA ACUMINATUM 07/30/2009 STONE DO KALEPSH K 628.9 Female Infertility 07/30/2009 STONE DO KALPESH K 783.21 Recent Weight Loss Of Lbs 07/30/2009 STONE DO KALPESH K 628.9 Female Infertility 07/30/2009 STONE IAN BOWMANA K 783.21 Recent Weight Loss Of Lbs 07/30/2009 628.9 Fema le Infertility 07/30/2009 783.21 Rec ent Weight Loss Of Lbs 07/30/2009 STONE DO KALPESH K 628.9 Female Infertility 07/30/2009 STONE DO KALPESH K 783.21 Recent Weight Loss Of Lbs 07/30/2009 628.9 Fema le Infertility 07/30/2009 783.21 Rec ent Weight Loss Of Lbs 07/30/2009 628.9 Fema le Infertility 07/30/2009 783.21 Rec ent Weight Loss Of Lbs 07/30/2009 628.9 Fema le Infertility 07/30/2009 783.21 Rec ent Weight Loss Of Lbs 07/30/2009 628.9 Fema le Infertility 07/30/2009 783.21 Rec ent Weight Loss Of Lbs 07/30/2009 628.9 Fema le Infertility 07/30/2009 783.21 Rec ent Weight Loss Of Lbs 07/30/2009 628.9 Fema le Infertility 07/30/2009 783.21 Rec ent Weight Loss Of Lbs 07/30/2009 628.9 Fema le Infertility 07/30/2009 783.21 Rec ent Weight Loss Of Lbs 07/30/2009 628.9 Fema le Infertility 07/30/2009 783.21 Rec ent Weight Loss Of Lbs 07/30/2009 TAD XIN, JENNI A 62 8.9 Female Infertility 07/30/2009 TADJESSICA LAUREN, JENNI A 783.21 Recent Weight Loss Of Lbs 07/30/2009 TAD APRN, JENNI A 62 8.9 Female Infertility 07/30/2009 TAD CARPENTER HELPER MAINTENANCE, JENNI A 783.21 Recent Weight Loss Of Lbs 07/30/2009 CARLOS POWERS MD N 628 .9 Female Infertility 07/30/2009 CARLOS POWERS MD N 783 .21 Recent Weight Loss Of Lbs 08/06/2010 STONE KALPESH BOWMAN V72.42 Test Positive Result 08/06/2010 STONE KALPESH BOWMAN V72.42 Test Positive Result 08/06/2010 V72.42 Pre gnancy Test Positive Result 08/06/2010 STONE KALPESH BOWMAN V72.42 Test Positive Result 08/06/2010 V72.42 Pre gnancy Test Positive Result 08/06/2010 V72.42 Pre gnancy Test Positive Result 08/06/2010 V72.42 Pre gnancy Test Positive Result 08/06/2010 V72.42 Pre gnancy Test Positive Result 08/06/2010 V72.42 Pre gnancy Test Positive Result 08/06/2010 V72.42 Pre gnancy Test Positive Result 08/06/2010 V72.42 Pre gnancy Test Positive Result 08/06/2010 V72.42 Pre gnancy Test Positive Result 08/06/2010 JENNI MISHRA APRN A V72.42 Test Positive Result 08/06/2010 JENNI MISHRA APRN A V72.42 Test Positive Result 08/06/2010 CARLOS POWERS MD V72 .42 Test Positive Result 08/27/2010 KALPESH STONE DO V22.0 , Normal First 08/27/2010 KALPESH STONE DO V22.0 , Normal First 08/27/2010 V22.0 Preg suzi, Normal First 08/27/2010 KALPESH STONE DO V22.0 , Normal First 08/27/2010 V22.0 Preg suzi, Normal First 08/27/2010 V22.0 Preg suzi, Normal First 08/27/2010 V22.0 Preg suzi, Normal First 08/27/2010 V22.0 Preg suzi, Normal First 08/27/2010 V22.0 Preg suzi, Normal First 08/27/2010 V22.0 Preg suzi, Normal First 08/27/2010 V22.0 Preg suzi, Normal First 08/27/2010 V22.0 Preg suzi, Normal First 08/27/2010 TAD CARPENTER HELPER MAINTENANCE, JENNI A V2 2.0 , Normal First 08/27/2010 TAD CARPENTER HELPER MAINTENANCE, JENNI A V2 2.0 , Normal First 08/27/2010 CARLOS POWERS MD V22 .0 , Normal First 09/17/2010 STONE DO, KALPESH [...] Scabies 09/17/2010 V74.5 Std Screen 09/17/2010 TAD CARPENTER HELPER MAINTENANCE, JENNI A 13 3.0 Scabies 09/17/2010 TAD CARPENTER HELPER MAINTENANCE, JENNI A V7 4.5 Std Screen 09/17/2010 TAD CARPENTER HELPER MAINTENANCE, JENNI A 13 3.0 Scabies 09/17/2010 TAD CARPENTER HELPER MAINTENANCE, JENNI A V7 4.5 Std Screen 09/17/2010 CARLOS POWERS MD 133 .0 Scabies 09/17/2010 CARLOS POWERS MD V74 .5 Std Screen 10/08/2010 STONE DO, KALPESH K 054.10 HERPES SIMPLEX GENITAL 10/08/2010 KALPESH STONE DO K 647.20 Compl Of - Std Unspecified 10/08/2010 KALPESH STONE DO K 648.10 Compl Of - Thyroid Dysfunction 10/08/2010 KALPESH STONE DO K 054.10 HERPES SIMPLEX GENITAL 10/08/2010 KALPESH STONE DO K 647.20 Compl Of - Std Unspecified 10/08/2010 KALPESH STONE DO K 648.10 Compl Of - Thyroid Dysfunction 10/08/2010 054.10 HER PES SIMPLEX GENITAL 10/08/[address] Of - Std Unspecified 10/08/2010 [address]48[address] Of - Thyroid Dysfunction 10/08/2010 KALPESH STONE DO K 054.10 HERPES SIMPLEX GENITAL 10/08/2010 KALPESH STONE DO K 647.20 Compl Of - Std Unspecified 10/08/2010 KALPESH STONE DO K 648.10 Compl Of - Thyroid Dysfunction 10/08/2010 054.10 HER PES SIMPLEX GENITAL 10/08/2010 647.[address] pl Of - Std Unspecified 10/08/2010 648.10 Com pl Of - Thyroid Dysfunction 10/08/2010 054.10 HER PES SIMPLEX GENITAL 10/08/2010 647.20 Com pl Of - Std Unspecified 10/08/2010 648.10 Com pl Of - Thyroid Dysfunction 10/08/2010 054.10 HER PES SIMPLEX GENITAL 10/08/2010 647.20 Com pl Of - Std Unspecified 10/08/2010 648.10 Com pl Of - Thyroid Dysfunction 10/08/2010 054.10 HER PES SIMPLEX GENITAL 10/08/2010 647.20 Com pl Of - Std Unspecified 10/08/2010 648.10 Com pl Of - Thyroid Dysfunction 10/08/2010 054.10 HER PES SIMPLEX GENITAL 10/08/2010 647.20 Com pl Of - Std Unspecified 10/08/2010 648.10 Com pl Of - Thyroid Dysfunction 10/08/2010 054.10 HER PES SIMPLEX GENITAL 10/08/2010 647.20 Com pl Of - Std Unspecified 10/08/2010 648.10 Com pl Of - Thyroid Dysfunction 10/08/2010 054.10 HER PES SIMPLEX GENITAL 10/08/2010 647.20 Com pl Of - Std Unspecified 10/08/2010 648.10 Com pl Of - Thyroid Dysfunction 10/08/2010 054.10 HER PES SIMPLEX GENITAL 10/08/2010 647.20 Com pl Of - Std Unspecified 10/08/2010 648.[address] Of - Thyroid Dysfunction 10/08/2010 TAD LAUREN JENNI A 054.10 HERPES SIMPLEX GENITAL 10/08/2010 TADToi LAUREN JENNI A 647.20 Compl Of - Std Unspecified 10/08/2010 TADToi LAUREN JENNI A 648.10 Compl Of - Thyroid Dysfunction 10/08/2010 TADToi LAUREN JENNI A 054.10 HERPES SIMPLEX GENITAL 10/08/2010 JENNI MISHRA APRN A 647.20 Compl Of - Std Unspecified 10/08/2010 JENNI MISHRA APRN A 648.10 Compl Of - Thyroid Dysfunction 10/08/2010 CARLOS POWERS MD N 054 .10 HERPES SIMPLEX GENITAL 10/08/2010 CARLOS POWERS MD N 647 .20 Compl Of - Std Unspecified 10/08/2010 CARLOS POWERS MD N 648 .10 Compl Of - Thyroid Dysfunction 01/21/2011 KALPESH STONE DO 465.9 Upper Respiratory Infection 01/21/2011 KALPESH STONE DO 465.9 Upper Respiratory Infection 01/21/2011 465.9 Uppe r Respiratory Infection 01/21/2011 KALPESH STONE DO 465.9 Upper Respiratory Infection 01/21/2011 465.9 Uppe r Respiratory Infection 01/21/2011 465.9 Uppe r Respiratory Infection 01/21/2011 465.9 Uppe r Respiratory Infection 01/21/2011 465.9 Uppe r Respiratory Infection 01/21/2011 465.9 Uppe r Respiratory Infection 01/21/2011 465.9 Uppe r Respiratory Infection 01/21/2011 465.9 Uppe r Respiratory Infection 01/21/2011 465.9 Uppe r Respiratory Infection 01/21/2011 JENNI MISHRA APRN A 46 5.9 Upper Respiratory Infection 01/21/2011 EJNNI MISHRA APRN A 46 5.9 Upper Respiratory Infection 01/21/2011 CARLOS POWERS MD 465 .9 Upper Respiratory Infection 03/02/2011 KALPESH STONE DO 765.27 33- 34 Completed Weeks Of Gestation 03/02/2011 KALPESH STONE DO 765.27 33- 34 Completed Weeks Of Gestation 03/02/2011 765.27 33- 34 Completed Weeks Of Gestation 03/02/2011 KALPESH STONE DO 765.27 33- 34 Completed Weeks Of Gestation 03/02/2011 765.27 33- 34 Completed Weeks Of Gestation 03/02/2011 765.27 33- 34 Completed Weeks Of Gestation 03/02/2011 765.27 33- 34 Completed Weeks Of Gestation 03/02/2011 765.27 33- 34 Completed Weeks Of Gestation 03/02/2011 765.27 33- 34 Completed Weeks Of Gestation 03/02/2011 765.27 33- 34 Completed Weeks Of Gestation 03/02/2011 765.27 33- 34 Completed Weeks Of Gestation 03/02/2011 765.27 33- 34 Completed Weeks Of Gestation 03/02/2011 JENNI MISHRA APRN 765.27 33-34 Completed Weeks Of Gestation 03/02/2011 JENNI MISHRA APRN 765.27 33-34 Completed Weeks Of Gestation 03/02/2011 CARLOS POWERS MD 765 .27 33-34 Completed Weeks Of Gestation 03/11/2011 KALPESH STONE DO 616.10 Vaginitis Vulvovaginitis Unspecified 03/11/2011 KALPESH STONE DO 616.10 Vaginitis Vulvovaginitis Unspecified 03/11/2011 616.10 Vag initis Vulvovaginitis Unspecified 03/11/2011 KALPESH STONE DO 616.10 Vaginitis Vulvovaginitis Unspecified 03/11/2011 616.10 Vag initis Vulvovaginitis Unspecified 03/11/2011 616.10 Vag initis Vulvovaginitis Unspecified 03/11/2011 616.10 Vag initis Vulvovaginitis Unspecified 03/11/2011 616.10 Vag initis Vulvovaginitis Unspecified 03/11/2011 616.10 Vag initis Vulvovaginitis Unspecified 03/11/2011 616.10 Vag initis Vulvovaginitis Unspecified 03/11/2011 616.10 Vag initis Vulvovaginitis Unspecified 03/11/2011 616.10 Vag initis Vulvovaginitis Unspecified 03/11/2011 JENNI MISHRA APRN 616.10 Vaginitis Vulvovaginitis Unspecified 03/11/2011 JENNI MISHRA APRN 616.10 Vaginitis Vulvovaginitis Unspecified 03/11/2011 CARLOS POWERS MD 616 .10 Vaginitis Vulvovaginitis Unspecified 03/16/2011 KALPESH STONE DO [...] Or Suspected Carrier 03/16/2011 CARLOS POWERS MD V02 .51 Gbs - Carrier Or Suspected Carrier 05/12/2011 KALPESH STONE DO V24.2 Visit For: Exam 05/12/2011 KALPESH STONE DO V24.2 Visit For: Exam 05/12/2011 V24.2 Visi t For: Exam 05/12/2011 KALPESH STONE DO V24.2 Visit For: Exam 05/12/2011 V24.2 Visi t For: Exam 05/12/2011 V24.2 Visi t For: Exam 05/12/2011 V24.2 Visi t For: Exam 05/12/2011 V24.2 Visi t For: Exam 05/12/2011 V24.2 Visi t For: Exam 05/12/2011 V24.2 Visi t For: Exam 05/12/2011 V24.2 Visi t For: Exam 05/12/2011 V24.2 Visi t For: Exam 05/12/2011 JENNI MISHRA APRN V2 4.2 Visit For: Exam 05/12/2011 JENNI MISHRA APRN V2 4.2 Visit For: Exam 05/12/2011 CARLOS POWERS MD V24 .2 Visit For: Exam 12/09/2011 KALPESH STONE DO V72.42 Test Positive Result 12/09/2011 KALPESH STONE DO V72.42 Test Positive Result 12/09/2011 V72.42 Pre gnancy Test Positive Result 12/09/2011 KALPESH STONE DO V72.42 Test Positive Result 12/09/2011 V72.42 Pre gnancy Test Positive Result 12/09/2011 V72.42 Pre gnancy Test Positive Result 12/09/2011 V72.42 Pre gnancy Test Positive Result 12/09/2011 V72.42 Pre gnancy Test Positive Result 12/09/2011 V72.42 Pre gnancy Test Positive Result 12/09/2011 V72.42 Pre gnancy Test Positive Result 12/09/2011 V72.42 Pre gnancy Test Positive Result 12/09/2011 V72.42 Pre gnancy Test Positive Result 12/09/2011 JENNI MISHRA APRN V72.42 Test Positive Result 12/09/2011 JENNI MISHRA APRN V72.42 Test Positive Result 12/09/2011 CARLOS POWERS MD V72 .42 Test Positive Result 12/17/2011 KALPESH STONE DO 654.20 PREVIOUS 12/17/2011 KALPESH STONE DO V22.1 , Normal Other 12/17/2011 KALPESH STONE DO 654.20 PREVIOUS 12/17/2011 KALPESH STONE DO V22.1 , Normal Other 12/17/2011 654.20 PRE VIOUS 12/17/2011 V22.1 Preg suzi, Normal Other 12/17/2011 KALPESH STONE DO 654.20 PREVIOUS 12/17/2011 KALPESH STONE DO V22.1 , Normal Other 12/17/2011 654.20 PRE VIOUS 12/17/2011 V22.1 Preg suzi, Normal Other 12/17/2011 654.20 PRE VIOUS 12/17/2011 V22.1 Preg suzi, Normal Other 12/17/2011 654.20 PRE VIOUS 12/17/2011 V22.1 Preg suzi, Normal Other 12/17/2011 654.20 PRE VIOUS 12/17/2011 V22.1 Preg suzi, Normal Other 12/17/2011 654.20 PRE VIOUS 12/17/2011 V22.1 Preg suzi, Normal Other 12/17/2011 654.20 PRE VIOUS 12/17/2011 V22.1 Preg suzi, Normal Other 12/17/2011 654.20 PRE VIOUS 12/17/2011 V22.1 Preg suzi, Normal Other 12/17/2011 654.20 PRE VIOUS 12/17/2011 V22.1 Preg suzi, Normal Other 12/17/2011 TAD LAUREN, JENNI A 654.20 PREVIOUS 12/17/2011 TAD APRN, JENNI A V2 2.1 , Normal Other 12/17/2011 TAD APRN, JENNI A 654.20 PREVIOUS 12/17/2011 TAD APRN, JENNI A V2 2.1 , Normal Other 12/17/2011 CARLOS POWERS MD 654 .20 PREVIOUS 12/17/2011 CARLOS POWERS MD N V22 .1 , Normal Other 01/12/2012 KALPESH STONE DO V74.5 Std Screen 01/12/2012 KALPESH STONE DO V76.2 Cervical Cancer Screening (pap Smear) 01/12/2012 KALPESH STONE DO V74.5 Std Screen 01/12/2012 KALPESH STONE DO V76.2 Cervical Cancer Screening (pap Smear) 01/12/2012 V74.5 Std Screen 01/12/2012 V76.2 Cerv ical Cancer Screening (pap Smear) 01/12/2012 KALPESH STONE DO V74.5 Std Screen 01/12/2012 KALPESH STONE DO V76.2 Cervical Cancer Screening (pap Smear) 01/12/2012 V74.5 Std Screen 01/12/2012 V76.2 Cerv ical Cancer Screening (pap Smear) 01/12/2012 V74.5 Std Screen 01/12/2012 V76.2 Cerv ical Cancer Screening (pap Smear) 01/12/2012 V74.5 Std Screen 01/12/2012 V76.2 Cerv ical Cancer Screening (pap Smear) 01/12/2012 V74.5 Std Screen 01/12/2012 V76.2 Cerv ical Cancer Screening (pap Smear) 01/12/2012 V74.5 Std Screen 01/12/2012 V76.2 Cerv ical Cancer Screening (pap Smear) 01/12/2012 V74.5 Std Screen 01/12/2012 V76.2 Cerv ical Cancer Screening (pap Smear) 01/12/2012 V74.5 Std Screen 01/12/2012 V76.2 Cerv ical Cancer Screening (pap Smear) 01/12/2012 V74.5 Std Screen 01/12/2012 V76.2 Cerv ical Cancer Screening (pap Smear) 01/12/2012 JENNI MISHRA APRN A V7 4.5 Std Screen 01/12/2012 JENNI MISHRA APRN A V7 6.2 Cervical Cancer Screening (pap Smear) 01/12/2012 JENNI MISHRA APRN A V7 4.5 Std Screen 01/12/2012 JENNI MISHRA APRN A V7 6.2 Cervical Cancer Screening (pap Smear) 01/12/2012 CARLOS POWERS MD V74 .5 Std Screen 01/12/2012 CARLOS POWERS MD V76 .2 Cervical Cancer Screening (pap Smear) 01/18/2012 KALPESH STONE DO 632 Missed 01/18/2012 KALPESH STONE DO 632 Missed 01/18/2012 632 Missed 01/18/2012 KALPESH STONE DO 632 Missed 01/18/2012 632 Missed 01/18/2012 632 Missed 01/18/2012 632 Missed 01/18/2012 632 Missed 01/18/2012 632 Missed 01/18/2012 632 Missed 01/18/2012 632 Missed 01/18/2012 632 Missed 01/18/2012 JENNI MISHRA APRN A 63 2 Missed 01/18/2012 TAD CARPENTER HELPER MAINTENANCEJENNI A 63 2 Missed 01/18/2012 CARLOS POWERS MD 632 Missed 02/09/2012 KALPESH STONE DO V25.09 Gynecologic Services Contraceptive General Counseling 02/09/2012 KALPESH STONE DO V25.09 Gynecologic Services Contraceptive General Counseling 02/09/2012 V25.09 Metal Reclamation Kettle Tender ecologic Services Contraceptive General Counseling 02/09/2012 KALPESH STONE DO V25.09 Gynecologic Services Contraceptive General Counseling 02/09/2012 V25.09 Metal Reclamation Kettle Tender ecologic Services Contraceptive General Counseling 02/09/2012 V25.09 Metal Reclamation Kettle Tender ecologic Services Contraceptive General Counseling 02/09/2012 V25.09 Metal Reclamation Kettle Tender ecologic Services Contraceptive General Counseling 02/09/2012 V25.09 Metal Reclamation Kettle Tender ecologic Services Contraceptive General Counseling 02/09/2012 V25.09 Metal Reclamation Kettle Tender ecologic Services Contraceptive General Counseling 02/09/2012 V25.09 Metal Reclamation Kettle Tender ecologic Services Contraceptive General Counseling 02/09/2012 V25.09 Metal Reclamation Kettle Tender ecologic Services Contraceptive General Counseling 02/09/2012 V25.09 Metal Reclamation Kettle Tender ecologic Services Contraceptive General Counseling 02/09/2012 JENNI MISHRA APRN V25.09 Gynecologic Services Contraceptive General Counseling 02/09/2012 JENNI MISHRA APRN A V25.09 Gynecologic Services Contraceptive General Counseling 02/09/2012 CARLOS POWERS MD V25 .09 Gynecologic Services Contraceptive General Counseling 02/25/2012 KALPESH STONE DO V25.01 Contraception - Oral Contraception 02/25/2012 KALPESH STONE DO V25.01 Contraception - Oral Contraception 02/25/2012 V25.01 Con traception - Oral Contraception 02/25/2012 KALPESH STONE DO V25.01 Contraception - Oral Contraception 02/25/2012 V25.01 Con traception - Oral Contraception 02/25/2012 V25.01 Con traception - Oral Contraception 02/25/2012 V25.01 Con traception - Oral Contraception 02/25/2012 V25.01 Con traception - Oral Contraception 02/25/2012 V25.01 Con traception - Oral Contraception 02/25/2012 V25.01 Con traception - Oral Contraception 02/25/2012 V25.01 Con traception - Oral Contraception 02/25/2012 V25.01 Con traception - Oral Contraception 02/25/2012 JENNI MISHRA APRN A V25.01 Contraception - Oral Contraception 02/25/2012 JENNI MISHRA APRN A V25.01 Contraception - Oral Contraception 02/25/2012 CARLOS POWERS MD V25 .01 Contraception - Oral Contraception 06/24/2012 KALPESH STONE DO V22.1 , NORMAL OTHER 06/24/2012 KALPESH STONE DO V22.1 , NORMAL OTHER 06/24/2012 V22.1 PREG SUZI, NORMAL OTHER 06/24/2012 KALPESH STONE DO V22.1 , NORMAL OTHER 06/24/2012 V22.1 PREG SUZI, NORMAL OTHER 06/24/2012 V22.1 PREG SUZI, NORMAL OTHER 06/24/2012 V22.1 PREG SUZI, NORMAL OTHER 06/24/2012 V22.1 PREG SUZI, NORMAL OTHER 06/24/2012 V22.1 PREG SUZI, NORMAL OTHER 06/24/2012 V22.1 PREG SUZI, NORMAL OTHER 06/24/2012 V22.1 PREG SUZI, NORMAL OTHER 06/24/2012 V22.1 PREG SUZI, NORMAL OTHER 06/24/2012 TADJENNI Cm APRN A V2 2.1 , NORMAL OTHER 06/24/2012 JENNI MISHRA APRN A V2 2.1 , NORMAL OTHER 06/24/2012 CARLOS POWERS MD V22 .1 , NORMAL OTHER 07/07/2012 KALPESH STONE DO V76.2 Cervical Cancer Screening (pap Smear) 07/07/2012 KALPESH STONE DO V76.2 Cervical Cancer Screening (pap Smear) 07/07/2012 V76.2 Cerv ical Cancer Screening (pap Smear) 07/07/2012 KALPESH STONE DO V76.2 Cervical Cancer Screening (pap Smear) 07/07/2012 V76.2 Cerv ical Cancer Screening (pap Smear) 07/07/2012 V76.2 Cerv ical Cancer Screening (pap Smear) 07/07/2012 V76.2 Cerv ical Cancer Screening (pap Smear) 07/07/2012 V76.2 Cerv ical Cancer Screening (pap Smear) 07/07/2012 V76.2 Cerv ical Cancer Screening (pap Smear) 07/07/2012 V76.2 Cerv ical Cancer Screening (pap Smear) 07/07/2012 V76.2 Cerv ical Cancer Screening (pap Smear) 07/07/2012 V76.2 Cerv ical Cancer Screening (pap Smear) 07/07/2012 JENNI MISHRA APRN V7 6.2 Cervical Cancer Screening (pap Smear) 07/07/2012 JENNI MISHRA APRN V7 6.2 Cervical Cancer Screening (pap Smear) 07/07/2012 CARLOS POWERS MD V76 .2 Cervical Cancer Screening (pap Smear) 12/07/2012 Ot 592.0 CALC ULUS OF KIDNEY 12/07/2012 Ot 648.93 OTH CURR COND- ANTEPARTUM 12/12/2012 599.0 URIN JUJU TRACT INFECTION 12/12/2012 599.0 URIN JUJU TRACT INFECTION 12/12/2012 599.0 URIN JUJU TRACT INFECTION 12/12/2012 599.0 Urin juju Tract Infection 12/12/2012 599.0 Urin juju Tract Infection 12/12/2012 599.0 Urin juju Tract Infection 12/12/2012 599.0 Urin juju Tract Infection 12/12/2012 JENNI MISHRA APRN A 59 9.0 Urinary Tract Infection 12/12/2012 JENNI MISHRA APRN 59 9.0 Urinary Tract Infection 12/12/2012 CARLOS POWERS MD 599 .0 Urinary Tract Infection 01/06/2013 Ot 625.9 FEM GENITAL SYMPTOMS NOS 01/06/2013 Ot 646.83 PRE G COMPL NEC- ANTEPART 01/23/2013 V28.6 GBS SCREENING 01/23/2013 V28.6 GBS SCREENING 01/23/2013 V28.6 GBS SCREENING 01/23/2013 V28.6 GBS SCREENING 01/23/2013 JENNI MISHRA APRN V2 8.6 GBS SCREENING 01/23/2013 JENNI MISHRA APRN A V2 8.6 GBS SCREENING 01/23/2013 CARLOS POWERS MD V28 .6 GBS SCREENING 02/23/2013 ADORE ROLAND DO Ot 054.1 0 GENITAL HERPES NOS 02/23/2013 ADORE ROLAND DO Ot 244.9 HYPOTHYROIDISM NOS 02/23/2013 ADORE ROLAND DO Ot 647.6 1 OTH VIRAL DIS-DELIVERED 02/23/2013 ADORE ROLAND DO Ot 648.1 1 THYROID DYSFUNC-DELIVER 02/23/2013 ADORE ROLAND DO Ot 654.2 1 PREV DELIVRY W/ OR W/O MENT ANT 02/23/2013 ADORE ROLAND DO Ot V27.0 DELIVER-SINGLE LIVEBORN 12/06/2013 JENNI MISHRA APRN V72.31 WELLNESS PROGRAM MANAGER EXAM, ROUTINE 12/06/2013 JENNI MISHRA APRN A V7 4.5 STD SCREEN 12/06/2013 JENNI MISHRA APRN A V76.10 BREAST CANCER SCREENING 12/06/2013 JENNI MISHRA APRN A V72.31 WELLNESS PROGRAM MANAGER EXAM, ROUTINE 12/06/2013 JENNI MISHRA APRN A V7 4.5 STD SCREEN 12/06/2013 JENNI MISHRA APRN A V76.10 BREAST CANCER SCREENING 12/06/2013 CARLOS POWERS MD V72 .31 WELLNESS PROGRAM MANAGER EXAM, ROUTINE 12/06/2013 CARLOS POWERS MD V74 .5 STD SCREEN 12/06/2013 CARLOS POWERS MD V76 .10 BREAST CANCER SCREENING 05/15/2017 Vicky Aguilar A 802.0 NASAL BONES, CLOSED FRACTURE 05/15/2017 Vicky Aguilar 873.20 OPEN WOUND OF NOSE,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
[2020-03-27] MEDS ORDERED: IBUP-1780 PO (13:42)
[2020-03-27] MEDS ORDERED: DOCU-143 PO (13:42)
[2020-03-27] MEDS ORDERED: OXYC1TAB87 PO (13:42)
--- NOTE | 2020-03-27 13:43 | Progress Note-Pre Operative ---
Pre-Operative Progress Note H&P Reviewed The H&P was reviewed, patient examined and no changes noted. Date Seen by Provider: Mar 27, 2020 Time Seen by Provider: 13:43 Date H&P Reviewed: Mar 27, 2020 Time H&P Reviewed: 13:43 Pre-Operative Diagnosis: DUB/Menorrhagia/CPP SARAH ROBERTS MD Mar 27, 2020 13:43
--- NOTE | 2020-03-27 13:43 | Discharge Inst-Surgical ---
Discharge Inst-Surgical Depart Medication/Instructions New, Converted or Re-Newed RX: RX on Chart Consults/Follow Up Patient Instructions: as directed Orders & Referrals Follow Up Appt: RTC sunday March 29, 2020 at 0930 for staple removal Call to make follow up appt. for patient in 4 weeks. Activity: Rest for 24 hours, than as tolerated. Wound Care: May remove Band-Aid tomorrow. Replace as desired. Keep incisions clean and dry. Wash daily with soap and water. Please call in RX to patient pharmacy. Diet: As tolerated-Clear Liquids only if nauseated. shower or tub bathe as desired. No driving for 24 hours, no alcoholic beverages for 24 hours, and nothing per vagina (no tampons, douching, or intercourse) for 8 weeks. Patient to return to the clinic as soon as possible for: Temperature greater than 101F, Severe Pain, Foul discharge from incision or vagina, Excessive Blee ding (more than a period). Activity Activity as Tolerated: No Diet Discharge Diet: No Restrictions SARAH ROBERTS MD Mar 27, 2020 13:43
--- NOTE | 2020-03-27 13:44 | Progress Note-Post Operative ---
Post-Operative Progess Note Surgeon (s)/Family Development Extension Specialist (s) Surgeon SARAH ROBERTS MD Family Development Extension Specialist: Alma Duarte Pre-Operative Diagnosis DUB/Menorrhagia/CPP Post-Operative Diagnosis same with extensive endometriosis Procedure & Operative Findings Date of Procedure 03/27/20 Procedure Performed/Findings TLH/BSO Anesthesia Type GETA Estimated Blood Loss Estimated blood loss (mL): 49 cc Specimens/Packing Specimens Removed TLH/BSO/cystoscopy SARAH ROBERTS MD Mar 27, 2020 13:44
[2020-03-27] MEDS ORDERED: ESTROGENS CONJ INJECTION 25 MG in WATER (STERILE) FOR INJECTION 5 ML IV ONE (13:45)
[2020-03-27] MEDS ORDERED: MEPERIDINE (DEMEROL) INJ 100 MG/ML IM PRN (13:45)
[2020-03-27] MEDS ORDERED: oxyCODONE/APAP 5/325MG (PERCOCET 5) TABLET PO PRN (13:45)
[2020-03-27] MEDS ORDERED: ONDANSETRON 4 MG/2 ML (SDV) Z0FRAN IVP PRN ×2 (13:45→16:00)
[2020-03-27] MEDS ORDERED: PROMETHAZINE INJ 25 MG/ML (PHENERGAN) AMP IM PRN (13:45)
[2020-03-27] MEDS ORDERED: INDIGO CARMINE 8 MG/ML 5 ML AMP ONE (15:24)
[2020-03-27] MEDS ORDERED: FUROSEMIDE 40 MG/4 ML INJ (LASIX) ONE (15:24)
[2020-03-27] MEDS ORDERED: KETOROLAC 30 MG/ML VIAL ONE (15:53)
[2020-03-27] MEDS ORDERED: ESTROGENS CONJ IV 25 MG/5 ML (PREMARIN) VIAL ONE (15:53)
[2020-03-27] MEDS ORDERED: WATER (STERILE) FOR INJECTION 10 ML ONE (15:53)
--- NOTE | 2020-03-27 15:53 | Anesthesia-General Post-Op ---
General Patient Condition Mental Status/LOC: Same as Preop Cardiovascular: Satisfactory Nausea/Vomiting: Absent Respiratory: Satisfactory Pain: Controlled Complications: Absent Post Op Complications Complications None Follow Up Care/Instructions Patient Instructions None needed. Anesthesia/Patient Condition Patient Condition Patient is doing well, no complaints, stable vital signs, no apparent adverse anesthesia problems. No complications reported per nursing. MARLEEN BEASLEY CRNA Mar 27, 2020 15:53
[2020-03-27] MEDS: KETOROLAC 30 MG/ML VIAL IVP SCH ×2 (15:59→22:01)
[2020-03-27] MEDS ORDERED: MEPERIDINE (DEMEROL) INJ 50 MG/ML IVP ONE (16:00)
[2020-03-27] MEDS ORDERED: HYDROmorphone 2 MG/ML VIAL (DILAUDID) IV ONE (16:00)
[2020-03-27] MEDS ORDERED: morphine INJ 10 MG/ML 1ML (SYR OR VIAL) IVP ONE (16:00)
[2020-03-27] MEDS ORDERED: morphine INJ 10 MG/ML 1ML (SYR OR VIAL) ONE (16:06)
--- NOTE | 2020-03-27 16:40 | NUR ---
pt transferred to room 305 via bed with STERILISATION TECHNICIAN's @ side. bedside report received from KRISTI Buckner. care assumed of pt.
--- NOTE | 2020-03-27 16:47 | NUR ---
initial assessment completed, see interventions for further. lapsites x5 D/I. no drainage noted. haynes to DD with blue colored urine noted in chamber. v-pad in place. SCD's to LE's. mother @ bedside. call light with in reach.
[2020-03-27] MEDS ORDERED: MEPERIDINE (DEMEROL) INJ 100 MG/ML ONE (17:20)
[2020-03-27] MEDS ORDERED: PROMETHAZINE INJ 25 MG/ML (PHENERGAN) AMP ONE (17:20)
--- NOTE | 2020-03-27 18:38 | NUR ---
pt resting with unlabored respirations noted.
--- NOTE | 2020-03-27 19:17 | NUR ---
report given to next shift.
--- NOTE | 2020-03-27 19:36 | OPERATIVE REPORT ---
DATE OF SERVICE: 03/27/2020 PREOPERATIVE DIAGNOSES: Chronic pelvic pain, dysfunctional uterine bleeding and menorrhagia. POSTOPERATIVE DIAGNOSES: Chronic pelvic pain, dysfunctional uterine bleeding and menorrhagia with endometriosis. OPERATIVE PROCEDURE: Total laparoscopic hysterectomy with bilateral salpingo-oophorectomy as well as cystoscopy. OPERATIVE DESCRIPTION: With the patient in the supine position under satisfactory general anesthesia, she was repositioned in the dorsal lithotomy position in the [facility] and prepped and draped in the usual fashion for abdominal and vaginal surgery. Hansen catheter was placed in the urinary bladder after placing a Svetlana two manipulator in the uterus in the usual manner using a 6 mm x 8 cm uterine probe and a 30 mm colpotomy ring and sutures of #1 Vicryl at the 3 and 9 o'clock position of the cervix to affix the uterus to the manipulator. The patient was brought in low dorsal lithotomy position. A 12 mm incision made superior to the umbilicus. A 5 mm incision at Sauceda's point. A stab wound above the umbilicus and an 8 mm incision 2 cm superior to the umbilicus and 8 cm lateral to the umbilicus on each side. First attempt was made to place the Veress needle through the midline incision and a second attempt was through the suprapubic incision and then a third incision was made in left upper quadrant at Sauceda's point where the Veress needle was successfully placed. The abdomen was insufflated with 2.4 liters of carbon dioxide and the Veress needle was removed and a 5 mm Optiview laparoscopic port was placed. The abdominal wall was transilluminated. A 12 mm port was placed through the midline 12 mm incision and then 8 mm ports were placed through the lateral incisions. The 5 mm port was left in place for an accessory port for use later. The patient brought into Trendelenburg allowing the bowel spill out of the pelvis. The da Kannan column was advanced on the patient and docked. Operative instruments were placed in right and left lateral ports and I retired to the da Kannan console. At the console using a vessel sealer on the right and a bipolar fenestrated grasper on the left, the pelvis was first examined. Both ovaries were normal. There was a corpus luteum on the left ovary. Both fallopian tubes showed evidence of remote tubal sterilization. There was endometriosis implants involving the fallopian tubes and the ovarian fossae bilaterally as well as the junction of the uterosacral ligaments with the lower uterine segment. The appendix was identified. It was a normal vermiform appendix and left in situ. Decision was made to go ahead with the intended procedure. The right fallopian tube and ovary were grasped and elevated. The IP ligament was clamped, cauterized and divided after first identifying the ureter medial to that, the dissection was carried stepwise across the mesovarium to the round ligament, across the broad ligament and down onto the cardinal ligament. Same procedure performed on the left with the same result allowing for eventual removal of the tubes and ovaries with the uterus. Both ureters were seemed to peristalse during the dissection and at this point. The anterior lower uterine segment peritoneum was exposed and using a monopolar shear on the right, the bladder peritoneum was divided and the bladder was carefully dissected down off the lower uterine segment. Colpotomy incision was started at 12 o'clock position and continued circumferentially until the entire colpotomy ring was exposed and then the uterus was removed through the vagina with the tubes and ovaries still attached. The vaginal cuff was closed with two sutures of V-Loc barbed suture starting from the right angle and continuing across the vaginal cuff almost to the left angle where a second suture was used to close the balance of the left angle to reperitonealize the cuff. Good hemostasis was achieved and care was taken to ensure inclusion of the uterine vessel pedicles bilaterally. The pelvis was irrigated. Blood and irrigant was aspirated out and the procedure was completely terminated at this point as there was no bleeding, no abnormal pathology. The operative instruments were removed under direct vision as were the ports. The abdomen was evacuated of insufflating gas in the process of removing the ports. The skin incisions were closed with harvey and the fascia at the supraumbilical incision was closed with [id number] suture of 2-0 Vicryl. Cystoscopy was performed and as preparation was made for the cystoscopy, the patient was given an amp of indigo carmine and 20 mg of Lasix to promote diuresis. The cystoscope was introduced in the bladder and free prompt blue urine was noted from both ureters. With integrity of the bladder and the ureters confirmed, the procedure was now terminated. The operative instruments removed under direct vision. The speculum was replaced in the vagina. The vaginal cuff was examined. It was completely reapproximated and hemostatic. Sponge and needle counts correct. Estimated blood loss was minimal. The patient was uneventfully awakened from her general anesthesia and transferred to recovery room in stable condition. Job ID: [id number] DocumentID: [id number] Dictated Date: 03/27/2020 15:31:02 Host/Hostess Ground Date: 03/27/2020 19:35:26 Dictated By: SARAH ROBERTS MD
[2020-03-27] MEDS: D5 LR IV SOLUTION 1,000 ML IV SCH (19:53)
[2020-03-28 00:15] VITALS: BP 129/85
[2020-03-28] MEDS ORDERED: OXYC1TAB87 PO (01:08)
[2020-03-28] MEDS ORDERED: IBUP-1780 PO (01:08)
[2020-03-28] MEDS ORDERED: DCS100C PO (01:08)
[2020-03-28] MEDS: D5 LR IV SOLUTION 1,000 ML IV SCH (04:01)
[2020-03-28] MEDS: KETOROLAC 30 MG/ML VIAL IVP SCH ×2 (04:02→09:58)
[2020-03-28 04:05] VITALS: BP 130/85
--- NOTE | 2020-03-28 07:53 | Progress Note ---
Standard Progress Note Progress Notes/Assess & Plan Date Seen by a Provider: Mar 28, 2020 Time Seen by a Provider: 07:51 Progress/Assessment & Plan This patient is without complaint. She is ambulating, tolerating oral intake well has good pain control. She has not voided yet vital signs are stable. Patient is afebrile. The abdomen is benign. The surgical incision dressings are clean and dry. Extremities show no clubbing cyanosis. There is no Homans sign. Vital Signs Date Time Temp Pulse Resp B/P (MAP) Pulse Ox O2 Delivery O2 Flow Rate FiO2 03/28/20 04:05 36.0 79 16 130/85 (100) 97 Nasal Cannula 0.50 03/28/20 00:15 36.6 80 16 129/85 (100) 95 Nasal Cannula 0.50 03/27/20 22:02 95 Nasal Cannula 0.50 03/27/20 22:00 91 Room Air 03/27/20 21:32 91 Room Air 21 03/27/20 21:05 96 Nasal Cannula 1.00 03/27/20 19:55 36.8 95 16 130/88 (102) 98 Nasal Cannula 3.00 03/27/20 16:50 Nasal Cannula 3 03/27/20 16:47 36.6 76 18 154/95 (114) 98 Nasal Cannula 3.00 3.00 03/27/20 16:30 37.1 12 146/100 (115) 97 Nasal Cannula 3 03/27/20 16:20 OxyMask 5 03/27/20 16:20 16 147/93 (111) 95 OxyMask 3 03/27/20 16:13 OxyMask 10 03/27/20 16:10 18 149/95 (113) 99 OxyMask 6 03/27/20 16:00 11 138/93 (108) 98 OxyMask 10 03/27/20 15:50 15 144/93 (110) 98 OxyMask 10 03/27/20 15:42 36.3 13 147/96 (113) 95 OxyMask 10 03/27/20 12:50 75 20 126/86 (99) 98 Room Air 03/27/20 11:55 36.6 87 18 125/88 (100) 98 Room Air I & O 03/28/20 07:00 Intake Total 4500 ml Output Total 2900 ml Balance 1600 ml Assessment and plan postoperative day number 1 doing well. Plan is for discharge home with follow-up in clinic Final Diagnosis MONICA/menorrhagia/chronic pelvic pain/endometriosis SARAH ROBERTS MD Mar 28, 2020 07:53
--- NOTE | 2020-03-28 08:05 | NUR ---
sitting up eating breakfast. O2 off.
--- NOTE | 2020-03-28 08:30 | NUR ---
ambulated to BR. voided 300cc urine without difficulty.
[2020-03-28] MEDS ORDERED: DOCUSATE SODIUM 100 MG (COLACE) CAP PO SCH (09:00)
[2020-03-28 09:48] VITALS: BP 130/80
--- NOTE | 2020-03-28 09:48 | NUR ---
initial shift assessment completed, see interventions for further.
--- NOTE | 2020-03-28 10:16 | NUR ---
dismissal instructions given, verbalizes understanding. reviewed follow up appointment and Rx's. signature page signed, placed on chart.
--- NOTE | 2020-03-28 10:25 | NUR ---
Rx's called into [facility] per pt's request.
--- NOTE | 2020-03-28 10:30 | NUR ---
pt dismissed to private vehicle via w/c with Keith RN @ side. pt stable with no sx's of distress noted.
[2020-03-28] MEDS ORDERED: IBUPROFEN 800 MG (MOTRIN) TAB PO SCH (18:00)
== END 2020-03-28 10:30 | disposition home or self-care (01) ==
LOC: SDC 10:56 → WS 16:40 → SDC 03-28 10:30
PROVIDERS: ATTEND Obstetrics & Gynecology
DX: N72 Inflammatory disease of cervix uteri (principal); N88.8 Other specified noninflammatory disorders of cervix uteri; N93.8 Other specified abnormal uterine and vaginal bleeding; N92.0 Excessive and frequent menstruation with regular cycle; N80.9 Endometriosis, unspecified; N83.01 Follicular cyst of right ovary; G89.29 Other chronic pain; I10 Essential (primary) hypertension; K21.9 Gastro-esophageal reflux disease without esophagitis; E66.9 Obesity, unspecified; Z68.41 Body mass index [BMI] 40.0-44.9, adult; Z88.0 Allergy status to penicillin; Z88.8 Allergy status to other drugs, medicaments and biological substances; Z79.899 Other long term (current) drug therapy
CPT/HCPCS: 36415; 84703; 85025; 86850; 86900; 86901; 87081; 94664; 94760

== ENCOUNTER 2020-04-01 12:26 | Emergency (ER) | payer MEDICAID ==
[~2020-04-01] VITALS: Ht 170.1 cm; Wt 116.3 kg
[~2020-04-01 12:26] MED LIST changes: +DOCU-143 PO; +OXYC1TAB87 PO
[2020-04-01 12:39] LABS: BILIRUBIN,URINE NEGATIVE (NEGATIVE); CLARITY,URINE CLEAR; COLOR,URINE YELLOW; GLUCOSE, URINE (UA) NEGATIVE (NEGATIVE); KETONES,URINE NEGATIVE (NEGATIVE); LEUKOCYTE ESTERASE ,URINE TRACE (NEGATIVE); NITRITE,URINE NEGATIVE (NEGATIVE); PROTEIN,URINE NEGATIVE (NEGATIVE)
--- NOTE | 2020-04-01 12:43 | ED Abdominal Pain ---
General Chief Complaint: Abdominal/GI Problems Stated Complaint: ABD PAIN Source of Information: Patient Exam Limitations: No Limitations History of Present Illness Date Seen by Provider: Apr 01, 2020 Time Seen by Provider: 12:41 Initial Comments To ER with reports of left lower quadrant abdominal pain that began 2 days ago after picking up a chair outside. Last week on Wednesday she had a laparoscopic complete hysterectomy here. Not sure if the pain is related to the chair or a complication surgery. No fever no chills Timing/Duration: 1-2 Days Severity/Quality: Moderate Location: LLQ Radiation: No Radiation Activities at Onset: None Associated Symptoms: No Fever/Chills, No Nausea/Vomiting Allergies and Home Medications Allergies Coded Allergies: Penicillins (Unverified Allergy, Mild, RASH, 12/07/12) furosemide (Verified Allergy, Mild, RASH, 03/22/20) Home Medications Docusate Sodium 100 Mg Capsule, 100 MG PO BID Prescribed by: SARAH DOLAN on 03/27/20 1342 Docusate Sodium 100 Mg Capsule, 100 MG PO BID Prescribed by: SARAH DOLAN on 03/28/20 0108 Ibuprofen 800 Mg Tablet, 800 MG PO Q6H PRN for PAIN Prescribed by: SARAH DOLAN on 03/27/20 1342 Ibuprofen 800 Mg Tablet, 800 MG PO Q6HR Prescribed by: SARAH DOLAN on 03/28/20 0108 Krill/Om-3/Dha/Epa/Phospho/Ast 1 Each Capsule, 1 EACH PO DAILY, (Reported) Lisinopril/Hydrochlorothiazide 1 Each Tablet, 1 EACH PO DAILY, (Reported) Oxycodone HCl/Acetaminophen 1 Each Tablet, 1 TAB PO Q4H Prescribed by: SARAH DOLAN on 03/27/20 1342 Oxycodone HCl/Acetaminophen 1 Each Tablet, 1 TAB PO Q4H PRN for PAIN-MODERATE (5-7) Prescribed by: SARAH DOLAN on 03/28/20 0108 Propranolol HCl 10 Mg Tablet, 10 MG PO BID, (Reported) Patient Home Medication List Home Medication List Reviewed: Yes Review of Systems Review of Systems Constitutional: see HPI; No chills, No fever EENTM: No Symptoms Reported Respiratory: No Symptoms Reported Cardiovascular: No Symptoms Reported Gastrointestinal: See HPI, Abdominal Pain; Denies Diarrhea, Denies Nausea Genitourinary: No Symptoms Reported Musculoskeletal: no symptoms reported Skin: no symptoms reported Psychiatric/Neurological: No Symptoms Reported Endocrine: No Symptoms Reported Hematologic/Lymphatic: No Symptoms Reported Past Anejnos-Cfxuuo-Vkzxbc Hx Patient Social History 2nd Hand Smoke Exposure: No Recent Foreign Travel: No Contact w/Someone Who Travel: No Recent Hopitalizations: No Immunizations Up To Date Tetanus Booster (TDap): More than 5yrs PED Vaccines UTD: Yes Seasonal Allergies Seasonal Allergies: No Past Medical History Surgeries: Yes ( X 2; D&C) Section, Tubal Ligation Respiratory: No Currently Using CPAP: No Currently Using BIPAP: No Cardiac: Yes (TACHYCARDIA) Chronic Edema/Swelling, Hypertension Neurological: No Reproductive Disorders: Yes Female Reproductive Disorders: Menstrual Problems Sexually Transmitted Disease: Yes (herpes no outbreak for several years) HIV/AIDS: No Genitourinary: Yes Kidney Stones Gastrointestinal: No Gastroesophageal Reflux, Chronic Diarrhea Musculoskeletal: No Endocrine: Yes (DR KALLIE ORTIZ) Hypothyroidsim HEENT: No Loss of Vision: Denies Hearing Impairment: Denies Cancer: No Psychosocial: No Integumentary: No Blood Disorders: No Adverse Reaction/Blood Tranf: No (N/A) Family Medical History FH: atrial fibrillation 19 FATHER Thyroid disease 19 MOTHER CAD Under 55 Years Old, Hypertension Physical Exam Vital Signs Vital Signs - First Documented 04/01/20 12:38 Temp 36.7 Pulse 76 Resp 18 B/P (MAP) 142/68 (92) Pulse Ox 98 O2 Delivery Room Air Capillary Refill : Height/Weight/BMI Height: 5'7.00" Weight: 224lbs. 7.0oz. 101.801484ol; 40.13 BMI Method:Stated General Appearance: WD/WN, no apparent distress HEENT: PERRL/EOMI, normal ENT inspection Respiratory: normal breath sounds, no respiratory distress, no accessory muscle use Cardiovascular: regular rate, rhythm, no murmur Gastrointestinal: normal bowel sounds, soft, tenderness Extremities: normal range of motion, non-tender, normal inspection Neurologic/Psychiatric: alert, normal mood/affect, oriented x 3 Skin: normal color, warm/dry Progress/Results/Core Measures Results/Orders Lab Results Laboratory Tests Test 04/01/20 12:34 04/01/20 12:38 Range/Units Urine Color YELLOW Urine Clarity CLEAR Urine pH 7.0 5-9 Urine Specific [place] 1.015 L 1.016-1.022 Urine Protein NEGATIVE NEGATIVE Urine Glucose (UA) NEGATIVE NEGATIVE Urine Ketones NEGATIVE NEGATIVE Urine Nitrite NEGATIVE NEGATIVE Urine Bilirubin NEGATIVE NEGATIVE Urine Urobilinogen 0.2 < = 1.0 MG/DL Urine Leukocyte Esterase TRACE H NEGATIVE Urine RBC (Auto) 2+ H NEGATIVE Urine RBC 2-5 H /HPF Urine WBC 0-2 /HPF Urine Squamous Epithelial Cells 10-25 H /HPF Urine Crystals NONE /LPF Urine Bacteria FEW H /HPF Urine Casts NONE /LPF Urine Mucus NEGATIVE /LPF Urine Culture Indicated YES White Blood Count 11.6 H 4.3-11.0 10^3/uL Red Blood Count 4.36 4.35-5.85 10^6/uL Hemoglobin 13.4 11.5-16.0 G/DL Hematocrit 41 35-52 % Mean Corpuscular Volume 93 80-99 FL Mean Corpuscular Hemoglobin 31 25-34 PG Mean Corpuscular Hemoglobin Concent 33 32-36 G/DL Red Cell Distribution Width 13.5 10.0-14.5 % Platelet Count 317 130-400 10^3/uL Mean Platelet Volume 10.1 7.4-10.4 FL Neutrophils (%) (Auto) 72 42-75 % Lymphocytes (%) (Auto) 18 12-44 % Monocytes (%) (Auto) 7 0-12 % Eosinophils (%) (Auto) 3 0-10 % Basophils (%) (Auto) 0 0-10 % Neutrophils # (Auto) 8.3 H 1.8-7.8 X 10^3 Lymphocytes # (Auto) 2.0 1.0-4.0 X 10^3 Monocytes # (Auto) 0.9 0.0-1.0 X 10^3 Eosinophils # (Auto) 0.3 0.0-0.3 10^3/uL Basophils # (Auto) 0.1 0.0-0.1 10^3/uL Sodium Level 137 135-145 MMOL/L Potassium Level 4.5 3.6-5.0 MMOL/L Chloride Level 103 98-107 MMOL/L Carbon Dioxide Level 23 21-32 MMOL/L Anion Gap 11 5-14 MMOL/L Blood Urea Nitrogen 12 7-18 MG/DL Creatinine 0.75 0.60-1.30 MG/DL Estimat Glomerular Filtration Rate > 60 BUN/Creatinine Ratio 16 Glucose Level 109 H 70-105 MG/DL Calcium Level 9.5 8.5-10.1 MG/DL Corrected Calcium 9.5 8.5-10.1 MG/DL Total Bilirubin 0.5 0.1-1.0 MG/DL Aspartate Amino Transf (AST/SGOT) 36 H 5-34 U/L Alanine Aminotransferase (ALT/SGPT) 62 H 0-55 U/L Alkaline Phosphatase 82 40-136 U/L Total Protein 7.6 6.4-8.2 GM/DL Albumin 4.0 3.2-4.5 GM/DL My Orders Orders - ASIA CRABTREE APRN Cbc With Automated Diff (04/01/20 12:34) Comprehensive Metabolic Panel (04/01/20 12:34) Ua Culture If Indicated (04/01/20 12:34) Ed Iv/Invasive Line Start (04/01/20 12:34) Ct Abdomen/Pelvis W (04/01/20 12:34) Ketorolac Injection (Toradol Injection) (04/01/20 12:45) Fentanyl Injection (Sublimaze Injection (04/01/20 12:45) Iohexol Injection (Omnipaque 350 Mg/Ml 1 (04/01/20 12:45) Received Contrast (Hold Metformin- Contr (04/01/20 12:45) Sodium Chloride Flush (Catheter Flush Sy (04/01/20 12:45) Ns (Ivpb) (Sodium Chloride 0.9% Ivpb Bag (04/01/20 12:45) Urine Culture (04/01/20 12:34) Medications Given in ED Current Medications Medications Dose Ordered Sig/Dale Route Start Time Stop Time Status Last Admin Dose Admin Fentanyl Citrate 50 mcg ONCE ONCE IVP 04/01/20 12:45 04/01/20 12:46 DC 04/01/20 12:51 50 MCG Ketorolac Tromethamine 15 mg ONCE ONCE IVP 04/01/20 12:45 04/01/20 12:46 DC 04/01/20 12:55 15 MG Vital Signs/I&O 04/01/20 12:38 Temp 36.7 Pulse 76 Resp 18 B/P (MAP) 142/68 (92) Pulse Ox 98 O2 Delivery Room Air Departure Impression Primary Impression: Postoperative pain Additional Impression: Abdominal wall pain Disposition: 01 HOME, SELF-CARE Condition: Stable Departure-Patient Inst. Decision time for Depature: 13:16 Referrals: NO,LOCAL PHYSICIAN (PCP) Primary Care Physician JO BRICE (Family) Primary Care Physician Patient Instructions: No Instuctions Given ASIA CRABTREE APRN Apr 01, 2020 12:43
[2020-04-01 12:44] LABS: BASOPHILS # (AUTO) 0.1 10^3/uL (0.0-0.1); BASOPHILS % (AUTO) 0 % (0-10); EOSINOPHILS # (AUTO) 0.3 10^3/uL (0.0-0.3); EOSINOPHILS % (AUTO) 3 % (0-10); HEMATOCRIT 41 % (35-52); HEMOGLOBIN 13.4 G/DL (11.5-16.0); LYMPHOCYTES % (AUTO) 18 % (12-44); MEAN CORPUSCULAR HEMOGLOBIN 31 PG (25-34); MEAN CORPUSCULAR HGB CONC 33 G/DL (32-36); MEAN CORPUSCULAR VOLUME 93 FL (80-99); MEAN PLATELET VOLUME 10.1 FL (7.4-10.4); MONOCYTES # (AUTO) 0.9 X 10^3 (0.0-1.0); MONOCYTES % (AUTO) 7 % (0-12); NEUTROPHILS # (AUTO) 8.3 X 10^3 (1.8-7.8); NEUTROPHILS % (AUTO) 72 % (42-75); PLATELET COUNT 317 10^3/uL (130-400); RED CELL DISTRIBUTION WIDTH 13.5 % (10.0-14.5); WHITE BLOOD COUNT 11.6 10^3/uL (4.3-11.0)
[2020-04-01] MEDS ORDERED: CATHETER FLUSH 10 ML SYR IV PRN (12:45)
[2020-04-01] MEDS ORDERED: IOHEXOL 350 MG/ML 100 ML (OMNIPAQUE 350) VIAL IV ONE (12:45)
[2020-04-01] MEDS ORDERED: KETOROLAC 30 MG/ML VIAL IVP ONE (12:45)
[2020-04-01] MEDS ORDERED: HOLD METFORMIN - RECEIVED CONTRAST 20 ML VIAL IV SCH (12:45)
[2020-04-01] MEDS ORDERED: NS 100 ML (IVPB) BAG IV ONE (12:45)
[2020-04-01] MEDS ORDERED: fentaNYL INJECTION 100 MCG/2 ML AMP IVP ONE (12:45)
[2020-04-01 12:47] LABS: BACTERIA,URINE FEW /HPF; WBC,URINE 0-2 /HPF
[2020-04-01 12:57] LABS: CHLORIDE 103 MMOL/L (98-107); POTASSIUM 4.5 MMOL/L (3.6-5.0); SODIUM 137 MMOL/L (135-145)
[2020-04-01 12:58] LABS: CALCIUM 9.5 MG/DL (8.5-10.1)
[2020-04-01 12:59] LABS: GLUCOSE 109 MG/DL (70-105)
[2020-04-01 13:00] LABS: TOTAL PROTEIN 7.6 GM/DL (6.4-8.2)
[2020-04-01 13:01] LABS: BILIRUBIN,TOTAL 0.5 MG/DL (0.1-1.0); CARBON DIOXIDE 23 MMOL/L (21-32)
[2020-04-01 13:03] LABS: ALKALINE PHOSPHATASE 82 U/L (40-136); CREATININE SERUM 0.75 MG/DL (0.60-1.30); GFR ESTIMATED > 60
[2020-04-01 13:04] LABS: BUN/CREATININE RATIO 16
[2020-04-01 13:06] LABS: ALANINE AMINOTRANSFERASE 62 U/L (0-55)
--- NOTE | 2020-04-01 13:19 | Diagnostic Imaging Report ---
PROCEDURE: CT abdomen and pelvis with contrast. TECHNIQUE: Multiple contiguous axial images were obtained through the abdomen and pelvis after administration of intravenous contrast. Auto Exposure Controls were utilized during the CT exam to meet ALARA standards for radiation dose reduction. INDICATION: Status post hysterectomy one week ago. Patient currently complains of left lower quadrant pain. COMPARISON: 01/16/2018. FINDINGS: The lung bases are clear. Diffuse low density throughout the liver is noted, consistent with hepatic steatosis. The gallbladder is unremarkable. No biliary ductal dilatation is detected. The pancreas and spleen are unremarkable. No adrenal mass is detected. The kidneys are unremarkable. There is no hydronephrosis. The aorta is non-aneurysmal. The small and large bowel loops are of normal caliber. No obstruction is identified. The uterus appears to be surgically absent. There is some minimal free fluid in the pelvis which does show some slight increase in density and may represent blood products from recent surgery. No well-formed fluid collection or abscess is identified at this time. The bladder contains a minimal amount of gas which may be owing to recent instrumentation. The bony structures are nonacute. IMPRESSION: 1. Hepatic steatosis. 2. Status post hysterectomy. There is a very small amount of high density fluid in the pelvis, likely blood products from recent surgery. No well-formed fluid collection, abscess, or evidence of bowel obstruction is identified. Dictated by: Dictated on workstation # [id number]
[2020-04-01 13:27] VITALS: BP 121/71
--- OUTSIDE RECORDS SUMMARY | 2020-04-01 13:41 | XMS REPORT | Continuity of Care Document ---
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 Document Registration [id number] 09/28/2012 10:26:00 Document Registration [id number] 07/29/2012 09:57:00 Document Registration [id number] 05/29/2019 12:40:00 05/29/2019 23:59:5 9 CLS Outpatient SOLANO, [facility] [id number] 02/23/2018 11:00:00 Document Registration [id number] 08/04/2017 09:20:00 Document Registration
== END 2020-04-01 13:27 | disposition home or self-care (01) ==
LOC: EDUNIT# 12:26 → ER 12:27
DX: G89.18 Other acute postprocedural pain (principal); R10.32 Left lower quadrant pain; I10 Essential (primary) hypertension; Z90.710 Acquired absence of both cervix and uterus; Z88.0 Allergy status to penicillin; Z88.8 Allergy status to other drugs, medicaments and biological substances; Z98.51 Tubal ligation status; Z82.49 Family history of ischemic heart disease and other diseases of the circulatory system
CPT/HCPCS: 36415; 74177; 80053; 81000; 85025; 87088

== ENCOUNTER → 2021-02-20 | Outpatient (CLI) | payer MEDICAID ==
[~2021-02-20] MED LIST changes: -LISI10TA2 PO; +LISI10TA25 PO
--- NOTE | 2021-02-20 08:23 | Diagnostic Imaging Report ---
EXAMINATION: US Abdomen limited. TECHNIQUE: Multiple real-time grayscale images were obtained over the right upper quadrant in various projections. HISTORY: RUQ PAIN COMPARISON: Gallbladder ultrasound 04/20/2019 FINDINGS: Pancreas: The visualized portions of the pancreas are normal. Liver: Increased echogenicity of the liver and normal contour which can be seen with hepatic steatosis. No focal lesions are seen. The portal vein is patent with hepatopetal flow. Gallbladder and biliary tree: Gallbladder is normal without wall thickening, pericholecystic fluid, or sonographic Andino sign. There is no biliary ductal dilation. The common duct measures 0.4 cm. Right kidney: The right kidney is normal without hydronephrosis. Aorta and IVC: The visualized aorta and inferior vena cava are normal. Fluid: No ascites is seen. IMPRESSION: 1. Increased echogenicity of liver compatible with hepatic steatosis. 2. Otherwise unremarkable gallbladder ultrasound. Dictated by: Dictated on workstation # [id number]
== END ==
LOC: RAD 07:00
PROVIDERS: ATTEND Surgery
DX: R93.2 Abnormal findings on diagnostic imaging of liver and biliary tract (principal); R10.11 Right upper quadrant pain
CPT/HCPCS: 76705

== ENCOUNTER 2021-03-06 05:50 | Outpatient (CLI) | payer MEDICAID ==
[~2021-03-06] VITALS: Ht 170.2 cm; Wt 113.5 kg
[2021-03-06] MEDS ORDERED: ETHI1TAB PO (12:27)
== END 2021-03-07 09:26 | disposition home or self-care (01) ==
LOC: PREOP 05:50
PROVIDERS: ATTEND Surgery
DX: Z01.818 Encounter for other preprocedural examination (principal)

== ENCOUNTER → 2021-03-07 | Outpatient (CLI) | payer MEDICAID ==
[~2021-03-07] MED LIST changes: +CATHETER FLUSH 10 ML SYR IV PRN; +ETHI1TAB PO
--- NOTE | 2021-03-07 13:58 | Diagnostic Imaging Report ---
EXAMINATION: Gallbladder scintigraphy. HISTORY: Right upper quadrant pain. COMPARISON: None available. TECHNIQUE: Anterior scintigraphic imaging of the abdomen was performed after the intravenous administration of 5.45 mCi Tc-99m Choletec. FINDINGS: The upper abdomen was imaged for 45 minutes with the gamma camera. There is prompt homogeneous uptake of radiopharmaceutical by the liver. There is activity in the common duct and gallbladder by 15 minutes. Small bowel activity is seen by 15 minutes. At 45 minutes, the patient received 8 ounces of Ensure. After 60 minutes, the gallbladder ejection fraction was calculated to be 64% (normal is >35%) IMPRESSION: 1. Patent common and cystic bile ducts. 2. No gallbladder dysfunction. Dictated by: Dictated on workstation # [id number]
== END ==
LOC: CARD 12:00
PROVIDERS: ATTEND Surgery
DX: R10.11 Right upper quadrant pain (principal)
CPT/HCPCS: 78227; A9537

== ENCOUNTER 2021-03-17 12:49 | Day surgery (SDC) | payer MEDICAID ==
[~2021-03-17] VITALS: Ht 170.2 cm; Wt 113.5 kg
[~2021-03-17 12:49] MED LIST changes: -CATHETER FLUSH 10 ML SYR IV PRN
[2021-03-17] MEDS ORDERED: LACTATED RINGERS 1,000 ML IV ONE (12:58)
[2021-03-17] MEDS ORDERED: LACTATED RINGERS 1,000 ML IV STA (12:59)
[2021-03-17 13:13] VITALS: BP 126/92
--- NOTE | 2021-03-17 13:17 | Progress Note-Pre Operative ---
Pre-Operative Progress Note H&P Reviewed The H&P was reviewed, patient examined and no changes noted. Time Seen by Provider: 13:15 Date H&P Reviewed: Mar 17, 2021 Time H&P Reviewed: 13:15 Pre-Operative Diagnosis: chronic diarrhea RANDALL JIMENEZ DO Mar 17, 2021 13:17
[2021-03-17] MEDS ORDERED: MIDAZOLAM 2 MG/2 ML (VERSED) VIAL ONE (13:58)
[2021-03-17] MEDS ORDERED: PROPOFOL INJECTION 50 ML IV ONE (13:58)
[2021-03-17 14:25] VITALS: BP 137/84
[2021-03-17 14:30] VITALS: BP 138/86
--- NOTE | 2021-03-17 14:31 | Progress Note-Post Operative ---
Post-Operative Progess Note Surgeon (s)/Piping Manager (s) Surgeon RANDALL JIMENEZ DO Piping Manager: none Pre-Operative Diagnosis chronic diarrhea Post-Operative Diagnosis same plus cecal mass Procedure & Operative Findings Date of Procedure 03/17/21 Procedure Performed/Findings After informed consent was obtained, the patient was brought to the endoscopy suite and placed in the bed in the left lateral decubitus position. She was administered IV sedation by the DATABASE MANAGER, who then monitored her vitals the entire time, heart rate, blood pressure and pulse ox and the scope was inserted, started the colonoscopy. Pushed all the way into about 140 cm to get all the way to cecum, took a picture of the appendiceal orifice and saw some changes looked like flat masses; possibly just some lymphoid nodules. Noted the ileocecal valve and then slowly withdrew the scope, insufflating to look circumferentially at the koch from the cecum, up the ascending colon to the hepatic flexure, then down the transverse colon, splenic flexure, into the descending colon, down into the sigmoid and finally into the rectum, retroflexed in the rectal vault, saw some minimal internal hemorrhoids and took a picture of this. The patient tolerated the procedure and she recovered in the endoscopy suite. Anesthesia Type IV sedation by DATABASE MANAGER Estimated Blood Loss Estimated blood loss (mL): scant Specimens/Packing Specimens Removed biopsy of appendiceal orifice/cecum RANDALL JIMENEZ DO Mar 17, 2021 14:31
--- NOTE | 2021-03-17 14:32 | Endoscopy Discharge Instruct ---
Endo Procedure/Findings Findings 1.: Other Findings (flat lymphoid tissue cecum) Discharge Instructions - Activity: You might feel a little sleepy until tomorrow. This is due to the medicine you received to relax you. Until tomorrow, you should: NOT drive a car, operate machinery or power tools. NOT drink any alcoholic beverages. NOT make any important decisions or sign importortant papers. Do not return to work until tomorrow, unless otherwise instructed. Resume previous activities tomorrow. Diet: Start by taking liquids. If you tolerate liquids, advance to solid food. 1.: Colonscopy in 10 years Notify Physician - If you experience excessive bleeding, unusual abdominal pain, fever, or chest pain, contact your doctor immediately. RANDALL JIMENEZ DO Mar 17, 2021 14:32
[2021-03-17 14:35] VITALS: BP 133/83
[2021-03-17 14:55] VITALS: BP 131/88
[2021-03-17 15:00] VITALS: BP 131/88
--- NOTE | 2021-03-20 10:41 | Anesthesia-General Post-Op ---
MAC Patient Condition Mental Status/LOC: Same as Preop Cardiovascular: Satisfactory Nausea/Vomiting: Absent Respiratory: Satisfactory Pain: Controlled Complications: Absent Post Op Complications Complications None Follow Up Care/Instructions Patient Instructions None needed. Anesthesiology Discharge Order Discharge Order Post-dated progress note: Patient was seen on 01-15 at approximately 1445 after the procedure and she was doing well, no complaints, stable vital signs, no apparent adverse anesthesia problems. ARNOL JOAQUIN DO Mar 20, 2021 10:41
== END 2021-03-17 15:00 | disposition home or self-care (01) ==
LOC: ENDO 12:49
PROVIDERS: ATTEND Surgery
DX: K52.9 Noninfective gastroenteritis and colitis, unspecified (principal); K63.89 Other specified diseases of intestine; I10 Essential (primary) hypertension; E66.9 Obesity, unspecified; Z79.1 Long term (current) use of non-steroidal anti-inflammatories (NSAID); Z79.891 Long term (current) use of opiate analgesic; Z79.899 Other long term (current) drug therapy; Z68.39 Body mass index [BMI] 39.0-39.9, adult

== ENCOUNTER 2022-11-22 10:40 | Emergency (ER) | payer MEDICAID ==
[~2022-11-22] VITALS: Ht 170 cm; Wt 113.3 kg
[~2022-11-22 10:40] MED LIST changes: +DOCU-239 PO; -LISI1TAB29 PO; +LISI1TAB44 PO; -PHEN37.53 PO; +PHEN37.58 PO
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
[2022-11-22 12:39] VITALS: BP 139/89
--- NOTE | 2022-11-23 13:57 | Diagnostic Imaging Report ---
EXAMINATION: Ankle radiograph TECHNIQUE: AP, oblique, and lateral views of the left ankle obtained. HISTORY: ankle pain COMPARISON: None available. FINDINGS: No acute fracture or dislocation of the left ankle. No joint effusion. Normal joint space. Plantar calcaneal enthesophyte no unexpected radiopaque foreign body. IMPRESSION: No acute fracture or dislocation. Calcaneal plantar enthesophyte. Dictated by: Dictated on workstation # [id number]
== END 2022-11-22 12:39 | disposition home or self-care (01) ==
LOC: EDUNIT# 10:40 → ER 10:42
DX: S93.402A Sprain of unspecified ligament of left ankle, initial encounter (principal); S96.912A Strain of unspecified muscle and tendon at ankle and foot level, left foot, initial encounter; Z28.310 Unvaccinated for COVID-19; W01.0XXA Fall on same level from slipping, tripping and stumbling without subsequent striking against object, initial encounter
CPT/HCPCS: 73610